=== PATIENT | male | born 1980 | race Caucasian/White ===

== ENCOUNTER 2016-03-24 05:29 | Inpatient (IN) | payer OTHER ==
[~2016-03-24] VITALS: Ht 180.3 cm; Wt 97.2 kg
[2016-03-24 06:31] LABS: BASO # 0.1 K/mm3 (0.0-0.2); BASO % 2.2 % (0.0-1.0); EOS # 0.3 K/mm3 (0.0-0.50); EOS % 4.9 % (0.0-3.0); LARGE UNSTAINED CELL # 0.1 K/mm3 (0.0-0.4); LYMPH # 2.4 K/mm3 (1.5-4.5); MEAN CORPUSCULAR HEMOGLOBIN 29.5 pg (27.0-33.0); MEAN CORPUSCULAR HGB CONC 34.6 g/dl (32.0-36.5); MEAN CORPUSCULAR VOLUME 85.2 fl (80.0-96.0); MONO # 0.3 K/mm3 (0.0-0.8); MONO % 4.7 % (0.0-5.0); NEUTROPHILS # 3.3 K/mm3 (1.8-7.7); NEUTROPHILS % 51.1 % (36.0-66.0); PLATELET COUNT, AUTOMATED 185 k/mm3 (150-450); WHITE BLOOD COUNT 6.5 K/mm3 (4.0-10.0)
[2016-03-24 06:37] LABS: ANION GAP 10 MEQ/L (8-16); BLOOD UREA NITROGEN 17 MG/DL (7-18); CALCIUM LEVEL 9.9 MG/DL (8.5-10.1); CARBON DIOXIDE LEVEL 26 MEQ/L (21-32); CHLORIDE LEVEL 107 MEQ/L (98-107); CREATININE FOR GFR 1.28 MG/DL (0.70-1.30); GLOMERULAR FILTRATION RATE > 60.0 (>60); GLUCOSE, FASTING 102 MG/DL (70-105); POTASSIUM SERUM 3.4 MEQ/L (3.5-5.1); SODIUM LEVEL 143 MEQ/L (136-145)
[2016-03-24] MEDS ORDERED: METOPROLOL 5 MG/5 ML VIAL As Ordered ONE (06:56)
[2016-03-24] MEDS ORDERED: POTASSIUM CHLORIDE 10 MEQ SR TABLET As Ordered ONE (06:57)
[2016-03-24] MEDS ORDERED: ASPIRIN 81 MG CHEW TABLET As Ordered ONE (06:57)
[2016-03-24] MEDS ORDERED: ISOVUE-370 76% 100ML VIAL (Q9967) As Ordered ONE (07:00)
[2016-03-24 07:05] LABS: INR 0.98
--- NOTE | 2016-03-24 07:50 | REPUSA ---
CLINICAL HISTORY: Dyspnea, exclude PE. TECHNIQUE: Multiple incremental axial, coronal and oblique images are obtained from the thoracic inle t to the upper abdomen. Intravenous contrast material was administered as per pulmonary embolism prot ocol. COMMENTS: There is excellent opacification of pulmonary arterial system without evidence for pulmonary embolism . Aorta is of normal caliber without evidence for dissection or aneurysm. There is no evidence of pleural or parenchymal mass. There are no pleural effusions. There is no evid ence of hilar or mediastinal lymphadenopathy. The heart and great vessels are within normal limits. Images of the upper abdomen demonstrate no evidence of adrenal mass. The bony structures are free of lytic or blastic lesions. Multilevel degenerative changes are seen in volving the visualized thoracolumbar spine. Scattered calcifications are seen involving the aorta and major branches compatible with atherosclero sis. IMPRESSION: No evidence for pulmonary embolism. Thank you for your kind referral of this patient.
--- NOTE | 2016-03-24 08:07 | REP ---
Portable chest: Single view. History: Chest pain. Comparison study: No comparison study. Findings: EKG monitoring electrodes overlie the chest. Lungs are well inflated and clear. Heart size is normal. Pulmonary vasculature is not increased. No bony abnormality is seen to Impression: No active disease. Signed by Abhi Mitchell MD 03/24/2016 07:59 A
[2016-03-24] MEDS ORDERED: METOPROLOL TART 25 MG TABLET As Ordered ONE ×2 (08:17→12:25)
[2016-03-24] MEDS ORDERED: ENOXAPARIN 100MG/1ML SYRINGE (J1650) As Ordered ONE (09:18)
[2016-03-24] MEDS ORDERED: VITMTA PO (09:26)
[2016-03-24 10:33] LABS: INR 1.06
[2016-03-24 10:47] LABS: FREE T4 0.98 NG/DL (0.76-1.46)
[2016-03-24 10:48] LABS: MAGNESIUM LEVEL 2.3 MG/DL (1.8-2.4)
--- NOTE | 2016-03-24 11:51 | HPEPDOC ---
General Date of Admission Mar 24, 2016 at 09:32 Chief Complaint The patient is a 35-year-old male Presented to the ER with complaints of chest tightness for 3 weeks and sudden onset of palpitations this morning that woke him from sleep. History of Present Illness Patient is a 35 year old male with a PMHx of Insomnia and ARTURO w/o CPAP who presented to the ER with complaints of palpitations since this morning. 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 He notes that he was in [place] 3 weeks ago and flew almost on a daily basis (Last flight was Feb 22). He noted that 3 weeks ago he was experiencing sub-sternal / left sided chest tightness. He noted that the pain occurred on and off for minutes to hours. He rated the pain as a 4/10 currently, but at the maximum it was 7-8/10. He noted that the pain does radiate to his back. He denied any alleviating or aggravating factors. He denied any associated nausea, sweating, shortness of breath or loss of consciousness. This morning he had a sudden onset of palpitations at 630AM that woke him from sleep. He notes that his baseline heart rate is in the 40-50s range. When he presented to the ER he had an EKG which revealed atrial fibrillation with a HR in the 120s. He was given metoprolol IV (5mg x2) and then given metoprolol tartrate 25mg PO. Currently his HR is in the 90s. Patient also had a CTA of his chest completed which was negative for pulmonary embolism, it also noted scattered calcifications involving the aorta and major branches compatible with atherosclerosis. Hospitalist team was called for admission. Patient denies any vomiting, cough, shortness of breath, fever / chills, abdominal pain, constipation, diarrhea or urinary symptoms. He denies any heat / cold intolerance, denies any weight change and denies any changes in his appetite. Home Medications Scheduled Multivitamins *[facility] [place] (The[facility] *[facility]*) 1 Tab Tab 1 TAB PO DAILY (Reported) Allergies Coded Allergies: Amoxicillin (Unverified Allergy, Unknown, RASH AND SWELLING , 03/24/16) Past Medical History Medical History Insomnia Obstructive sleep apnea no CPAP use Surgical History [place] teeth removal 2009 Adenoidectomy Family History Family History - Mother with Lymphoma - Father with Hypertension and diabetes - No history of thyroid related disease Social History Social History - Denies the use of alcohol, tobacco or illicit drugs - Recent travel to [place] - Lives with and two children - 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 [employer] Review of Symptoms Other systems Constitutional: Denies weight loss, change in appetite, or recent trauma Eyes: No visual changes or eye pain Ears, Nose, Throat: Denies nose bleeds, or difficulty swallowing Cardiovascular: Positive chest pain and palpitations, No sweating, or orthopnea Respiratory: Denies cough, wheezing, or shortness of breath GI: Luis Fernando nausea, vomiting, abdominal pain, diarrhea or constipation : Denies pain with urination or frequency Musculoskeletal: Denies joint pain or swelling Neuro / Psych: Denies muscle weakness or sensory loss Skin: No skin rashes noted All other review of systems negative; otherwise stated in history of present illness Screening: - Colonoscopy never done Vital Signs - Vitals: BP 166/75, HR 88, RR 20, Sat 98%RA, Temp 96.7F - General: Lying in bed, No acute distress, Speaking in full sentences, AAOx3 - HEENT: NC, AT, PERRLA, EOMI - CVS: Irregularly irregular, +S1S2, - Murmurs / rubs / gallops - Lungs: Fair air entry bilaterally, Clear to auscultation, No wheezing / rales / rhonchi - Abdomen: Soft, Non-distended, Non-tender, + Bowel sounds x 4 - Extremities: + PPx4, No lower extremity edema, No calf tenderness - Neuro: No focal motor or sensory deficit - Skin: No visible rashes Laboratory Data Labs 24H Laboratory Tests 2 03/24/16 05:52: Anion Gap 10, White Blood Count 6.5, Red Blood Count 5.63, Hemoglobin 16.6, Hematocrit 47.9, Mean Corpuscular Volume 85.2, Mean Corpuscular Hemoglobin 29.5 , Mean Corpuscular Hemoglobin Concent 34.6, Red Cell Distribution Width 13.0, Platelet Count 185, Neutrophils (%) (Auto) 51.1, Lymphocytes (%) (Auto) 35.0, Monocytes (%) (Auto) 4.7, Eosinophils (%) (Auto) 4.9H, Basophils (%) (Auto) 2.2H , Neutrophils # (Auto) 3.3, Lymphocytes # (Auto) 2.4, Monocytes # (Auto) 0.3, Eosinophils # (Auto) 0.3, Basophils # (Auto) 0.1, Blood Urea Nitrogen 17, Creatinine 1.28, Sodium Level 143, Potassium Level 3.4L, Chloride Level 107, Carbon Dioxide Level 26, Calcium Level 9.9, Total Creatine Kinase 197, Creatine Kinase MB 1.0, Creatine Kinase MB Relative Index 0.50, Glomerular Filtration Rate > 60.0, Large Unclassified Cells # 0.1, Large Unclassified Cells % 2.0, Magnesium Level 2.0, Troponin I < 0.02 03/24/16 06:16: Activated Partial Thromboplast Time 28.5, D-Dimer, Quantitative < 270.0, Prothromb Time International Ratio 0.98, Prothrombin Time 13.1 03/24/16 10:15: Total Creatine Kinase 163, Creatine Kinase MB 1.0, Creatine Kinase MB Relative Index 0.61, Magnesium Level 2.3, Troponin I < 0.02, Prothromb Time International Ratio 1.06, Prothrombin Time 13.9, C-Reactive Protein, Quantitative < 0.30, Erythrocyte Sedimentation Rate 2, Free Thyroxine 0.98, Thyroid Stimulating Hormone (TSH) 1.670 CBC/BMP Laboratory Tests 03/24/16 05:52 Calcium Level 9.9, Total Creatine Kinase 197, Red Blood Count 5.63, Mean Corpuscular Volume 85.2, Mean Corpuscular Hemoglobin 29.5, Mean Corpuscular Hemoglobin Concent 34.6, Red Cell Distribution Width 13.0, Neutrophils (%) (Auto ) 51.1, Lymphocytes (%) (Auto) 35.0, Monocytes (%) (Auto) 4.7, Eosinophils (%) ( Auto) 4.9 H, Basophils (%) (Auto) 2.2 H, Neutrophils # (Auto) 3.3, Lymphocytes # (Auto) 2.4, Monocytes # (Auto) 0.3, Eosinophils # (Auto) 0.3, Basophils # ( Auto) 0.1 Plan / VTE VTE Prophylaxis Ordered?: Yes Plan Plan New onset atrial fibrillation - possibly 2/2 thyroid disease, possibly 2/2 pericarditis - CHADSVASC 2 score of 0 - Presented with palpitations and chest tightness - s/p Metoprolol 5mg IV x2 and Metoprolol tartrate 25mg PO - Physical with irregularly irregular rhythm; remains hemodynamically stable - EKG reveals atrial fibrillation with HR of 109 - First set troponin negative, D-dimer Negative - CTA chest no evidence of PE, atherosclerosis of aorta and major branches - Will check thyroid function, will check ESR / CRP, will check 2D-ECHO - Will c/w Metoprolol tartrate 25mg PO Q6H and Lovenox (therapeutic) at 100mg BID - Case discussed with Dr. Dave (Cardiology) who will be on consult - appreciate his input Insomnia - does not take any medications ARTURO - Reports that he does not use a CPAP machine Hypokalemia - mild at 3.4 - Has been repelted in the Er DVT prophylaxis - on full anticoagulation with lovenox LUCY AVILES MD Mar 24, 2016 11:51
--- NOTE | 2016-03-24 14:01 | EDDOCDS ---
Physician Documentation [facility] Name: Eliecer Issa Age: 35 yrs Sex: Male : 1980 Arrival Date: 03/24/2016 Time: 05:29 Bed Admit Hold Private MD: Disposition: 03/24 09:05 Critical Care:. ml Disposition: 03/24/16 09:05 Hospitalization ordered by Beckie Fernandez for Inpatient Admission. Preliminary diagnosis are Chest pain, unspecified, Unspecified atrial fibrillation. - Bed requested for PCU. - Status is Inpatient Admission. ar3 - Condition is Stable. - Problem is new. - Symptoms are unchanged. Historical: - Allergies: PENICILLINS; - Home Meds: 1. none - PMHx: Sleep Apnea w/o CPAP; - PSHx: wisdom tetth extraction; - Social history: Smoking status: Patient states was never smoker of tobacco. No barriers to communication noted. - Family history: Not pertinent. - : The pt / caregiver states he / she is not on anticoagulants. Home medication list is obtained from the patient. - Exposure Risk Screening:: None identified. Vital Signs: 05:43 BP 161 / 82; Pulse 124; Resp 16; Pulse Ox 100% on R/A; Weight 97.52 kg / 214.99 lbs; cz Height 5 ft. 11 in. (180.34 cm); 07:26 BP 178 / 98; Pulse 112; Resp 20; Temp 96.7(O); Pulse Ox 95% on R/A; Pain 0/10; jc4 07:34 BP 165 / 89 (auto/); jc4 07:34 Pulse 94 MON; Pulse Ox 98% ; jc4 07:36 BP 165 / 89; Pulse 91; Resp 20; Pulse Ox 98% on R/A; jc4 07:44 BP 172 / 114 (auto/); jc4 07:44 BP 172 / 114; Pulse 104; Resp 20; Pulse Ox 98% on R/A; jc4 07:45 Pulse 96 MON; Pulse Ox 98% ; jc4 07:55 BP 169 / 85 (auto/); jc4 07:55 Pulse 84 MON; Pulse Ox 98% ; jc4 08:09 Pulse 88 MON; Pulse Ox 96% ; jc4 08:10 BP 166 / 75 (auto/); jc4 09:09 Pulse 88 MON; Pulse Ox 97% ; jc4 09:10 BP 147 / 80 (auto/); jc4 09:33 BP 120 / 85; Pulse 82; Resp 18; Temp 98.5(TE); Pulse Ox 97% on R/A; Pain 3/10; dsf 09:33 BP 120 / 85 (auto/); dsf 09:34 Pulse 84 MON; Pulse Ox 96% ; dsf 09:40 BP 127 / 95 (auto/); dsf 09:41 Pulse 88 MON; Pulse Ox 96% ; dsf 09:55 BP 129 / 78 (auto/); dsf 09:55 Pulse 84 MON; Pulse Ox 94% ; dsf 10:10 BP 129 / 85 (auto/); dsf 10:10 Pulse 84 MON; Pulse Ox 95% ; dsf 10:25 BP 126 / 75 (auto/); dsf 10:25 Pulse 86 MON; Pulse Ox 96% ; dsf 10:40 BP 133 / 63 (auto/); dsf 10:40 Pulse 66 MON; Pulse Ox 94% ; dsf 10:40 BP 112 / 81 (auto/); dsf 10:40 Pulse 96 MON; Pulse Ox 96% ; dsf 10:55 BP 144 / 67 (auto/); dsf 10:55 Pulse 66 MON; Pulse Ox 95% ; dsf 11:10 BP 115 / 62 (auto/); dsf 11:10 Pulse 66 MON; Pulse Ox 96% ; dsf 11:25 BP 125 / 60 (auto/); dsf 11:25 Pulse 64 MON; Pulse Ox 94% ; dsf 11:27 BP 129 / 87; Pulse 94; Resp 20; Temp 98.5(TE); Pulse Ox 96% on R/A; Pain 3/10; dsf 11:27 BP 129 / 87 (auto/); dsf 11:28 Pulse 88 MON; Pulse Ox 97% ; dsf 13:41 BP 122 / 79 (auto/); dsf 13:41 Pulse 86 MON; Resp 20; Temp 98.0(TE); Pulse Ox 95% on R/A; Pain 3/10; dsf 05:43 Body Mass Index 29.99 (97.52 kg, 180.34 cm) cz MDM: 05:38 ECG WITH READING ER PHYS+CARDIAG ordered. EDMS 06:05 Front End Software Developer/Pulse Ox/q 30 min VS ordered. mm11 06:05 IV Saline Lock ordered. mm11 06:05 Rhythm Strip to chart ordered. mm11 06:05 Undress patient appropriately for examination ordered. mm11 06:06 Basic Metabolic Profile Ordered. EDMS 06:06 CBC with Diff Ordered. EDMS 06:06 Cardiac Injury Profile Ordered. EDMS 06:06 D-Dimer Quant Ordered. EDMS 06:06 Troponin Ordered. EDMS 06:06 Magnesium Level Ordered. EDMS 06:52 Basic Metabolic Profile Reviewed. ml 06:52 CBC with Diff Reviewed. ml 06:52 Cardiac Injury Profile Reviewed. ml 06:52 Troponin Reviewed. ml 06:52 Magnesium Level Reviewed. ml 06:53 NS 0.9% 1000 ml IV at 100 mL/hr continuous ordered. ml 06:53 Oral Temp ordered. ml 06:53 Potassium Chloride Extended Release Tablet 40 mEq PO once ordered. ml 06:53 Metoprolol 5 mg IVP every 5 minutes; Hold for SBP < 100 or HR < 60. x3 ordered. ml 06:55 Aspirin Chewable Tablet 324 mg PO once ordered. ml 06:55 Chest, 1 View Ordered. EDMS 06:56 CT Chest Angio R/O PE Ordered. EDMS 06:58 PT & APTT Ordered. EDMS 07:31 Financial registration complete. lg 07:44 [facility] Payment Agreement was scanned into [employer] and attached to record. lg 08:01 Metoprolol (Tartrate) 25 mg PO once ordered. ml 08:47 D-Dimer Quant Reviewed. ml 08:47 PT & APTT Reviewed. ml 08:47 Chest, 1 View Reviewed. ml 08:47 CT Chest Angio R/O PE Reviewed. ml 08:49 Enoxaparin (1mg/kg) 100 mg Sub-Q once; Ensure no Heparin in past 6hrs. Ensure any ml baseline labs are drawn. ordered. 08:50 BED REQUEST+ADM ordered. EDMS 09:07 ECHOCARDIOGRAM,DOPPLER/COLOR FLOW+CARDIAG ordered. EDMS 09:38 Admission / Observation Status ordered. EDMS 09:38 REGULAR DIET ordered. EDMS 09:39 THYROID STIMULATING HORMONE Ordered. EDMS 09:39 MAGNESIUM LEVEL Ordered. EDMS 09:39 CARDIAC MARKER PANEL Ordered. EDMS 09:39 CARDIAC MARKER PANEL Ordered. EDMS 09:39 TROPONIN Ordered. EDMS 09:39 TROPONIN Ordered. EDMS 09:39 PROTHROMBIN TIME PROFILE\E\INR Ordered. EDMS 09:39 ERYTHROCYTE SEDIMENTATION RATE Ordered. EDMS 09:39 C REACTIVE PROTEIN QUANTITATIV Ordered. EDMS 09:39 FREE T4 Ordered. EDMS 09:39 TOTAL T3 Ordered. EDMS 10:40 PROTHROMBIN TIME PROFILE\E\INR Reviewed. 12:01 T-Sheet-- Draft Copy was scanned into [employer] and attached to record. [facility] 13:50 ELECTROCARDIOGRAM ADULT ordered. EDMS Administered Medications: 07:29 Drug: Metoprolol 5 mg [metoprolol 5 mg/5 mL intravenous solution (5 mL)] Route: IVP; jc4 Site: right antecubital; 07:36 Follow up: BP 165 / 89; Pulse 91 bpm; Resp 20 bpm; Pulse Ox 98% RA jc4 07:33 Drug: Potassium Chloride 40 mEq [potassium chloride ER 10 mEq tablet,extended release jc4 (4 tabs)] {Note: Medication administered by Zulema Rodriguez RN.} Route: PO; 07:33 Drug: Aspirin 324 mg [aspirin 81 mg chewable tablet (4 tabs)] {Note: Medication jc4 administered by Zulema Rodriguez RN.} Route: PO; 07:37 Drug: Metoprolol 5 mg [metoprolol 5 mg/5 mL intravenous solution (5 mL)] Route: IVP; jc4 Site: right antecubital; 07:44 Follow up: BP 172 / 114; Pulse 104 bpm; Resp 20 bpm; Pulse Ox 98% RA jc4 08:27 Drug: Metoprolol 25 mg [metoprolol tartrate 25 mg tablet (1 tabs)] Route: PO; jc4 08:28 Drug: NS 0.9% 1000 ml [sodium chloride 0.9 % intravenous solution] Route: IV; Rate: 100 jc4 mL/hr; Site: right antecubital; 09:21 Drug: Enoxaparin (1mg/kg) 100 mg [enoxaparin 100 mg/mL subcutaneous syringe (1 mL)] dsf {Co-Signature: richard (Sandra Alvarenga RN).} {Note: right love handle area .} Route: Sub-Q; Site: right upper abdomen; Critical Care Time: 09:05 Critical care time: Bedside Care: 90 minutes, Consultation: 10 minutes. Total time: 100 ml minutes Signatures: Dispatcher [employer] EDMS Fiorella Duarte MD MD ml Caroline Rodriguez, RN RN [id number] Carlos López RN RN cz John Fisher, Juan Reg lg Terence James, DO mm11 Zackary, Irene, VAULT PERSON VAULT PERSON ar3 Hoffert, Josefina Mcadams RN jc4 Татьяна Weldon RN dsf Sandra Alvarenga RN kpj The chart was reviewed and I authenticate all verbal orders and agree with the evaluation and treatment provided.Corrections: (The following items were deleted from the chart) 58 06:54 PROTHROMBIN TIME PROFILE\E\INR+LAB ordered. EDMS EDMS 58 06:54 PARTIAL THROMBOPLASTIN TIME+LAB ordered. EDMS EDMS Attachments: 07:44 [facility] Payment Agreement lg 12:01 T-Sheet-- Draft Copy [facility] MTDD
--- NOTE | 2016-03-24 14:01 | EDDOCDS ---
Nurse's Notes [facility] Name: Eliecer Issa Age: 35 yrs Sex: Male : 1980 Arrival Date: 03/24/2016 Time: 05:29 Bed Admit Hold Private MD: Diagnosis: Chest pain, unspecified;Unspecified atrial fibrillation Presentation: 03/24 05:39 Presenting complaint: Patient states: he woke up this morning with palpatations pt cz denies any use of supplements denies caffeine increaed use. pt chest pain for 3 weeks rates pain at 6/10 no change with deep breathing. Aspirin was not taken prior to arrival. Adult Sepsis Screening: The patient does not have new or worsening altered mentation. Patient's respiratory rate is less than 22. Systolic blood pressure is greater than 100. Patient has a qSOFA score of 0- Negative Sepsis Screen. Suicide/Homicide risk assessment- the patient denies having any suicidal and/or homicidal ideations and does not present with any other emotional, behavioral or mental health complaints. 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 Transition of care: patient was not received from another setting of care. 05:39 Acuity: FARIDA Level 2 cz 05:39 Method Of Arrival: Walkin/Carried/Asstd cz Triage Assessment: 05:43 General: Appears uncomfortable. Pain: Location: chest Pain currently is 6 out of 10 on cz a pain scale. HIV screening NA for this visit Offered previously. Historical: - Allergies: PENICILLINS; - Home Meds: 1. none - PMHx: Sleep Apnea w/o CPAP; - PSHx: wisdom tetth extraction; - Social history: Smoking status: Patient states was never smoker of tobacco. No barriers to communication noted. - Family history: Not pertinent. - : The pt / caregiver states he / she is not on anticoagulants. Home medication list is obtained from the patient. - Exposure Risk Screening:: None identified. Screenin:49 Screening information is obtained from the patient. Fall risk: No risks identified. kmg1 Assistance ADL's: requires no assistance with activities of daily living. Abuse/DV Screen: The patient / caregiver reports he/she is: not in a situation that causes fear, pain or injury. Nutritional screening: No deficits noted. Advance Directives: There is no active DNR order. home support is adequate. Assessment: 05:49 General: Appears in no apparent distress, comfortable, Behavior is appropriate for age, kmg1 cooperative, pleasant. 05:49 Pain: Location: mid-sternal area Pain currently is 6 out of 10 on a pain scale. Quality kmg1 of pain is described as tightness Pain began 3 weeks ago. Neurological: Level of Consciousness is awake, alert. EENT: No deficits noted. Cardiovascular: Capillary refill < 3 seconds Clubbing of nail beds is absent Heart tones S1 S2 present rhythm irregular. Rhythm is sinus tachycardia No ectopy. Cardiovascular: Chest pain is described as Pain is 6 out of 10 on a pain scale. is located in substernal area Chest pain began 3 weeks ago Reports palpitations, since this am. Respiratory: Airway is patent Respiratory effort is even, unlabored, Respiratory pattern is regular, symmetrical. GI: No deficits noted. : No deficits noted. Derm: Skin is pink, warm & dry. Musculoskeletal: No deficits noted. 07:39 General: Appears in no apparent distress, comfortable, Behavior is cooperative, jc4 pleasant. Pain: Pain currently is 4 out of 10 on a pain scale. Neurological: Level of Consciousness is awake, alert, Oriented to person, place, time. Cardiovascular: Capillary refill < 3 seconds Chest pain is described as Pain is 4 out of 10 on a pain scale. quality is tightness is located in substernal area. Respiratory: Airway is patent Respiratory effort is even, unlabored, Respiratory pattern is regular, symmetrical. Derm: Skin is pink, warm & dry. 08:15 General: Per Dr. Brandt, hold 3rd dose of Lopressor. jc4 08:25 General: Appears in no apparent distress, comfortable. Neurological: Level of jc4 Consciousness is awake, alert, Oriented to person, place, time. Cardiovascular: Capillary refill < 3 seconds. Derm: Skin is pink, warm & dry. 09:22 General: Dr. Fernandez in room examining patient . dsf 09:28 General: Appears in no apparent distress, comfortable, Behavior is appropriate for age, dsf cooperative. Pain: Location: mid-sternal area Pain currently is 3 out of 10 on a pain scale. Pain does not radiate. Quality of pain is described as tightness. Neurological: Level of Consciousness is awake, alert. Cardiovascular: Capillary refill < 3 seconds Heart tones S1 S2 present Rhythm is atrial fibrillation Reports palpitations. Respiratory: Airway is patent Respiratory effort is even, unlabored, Respiratory pattern is regular, symmetrical, Breath sounds are clear bilaterally. GI: Abdomen is non- distended Bowel sounds present X 4 quads. Abd is soft and non tender X 4 quads. Derm: Skin is pink, warm & dry. 10:28 Adult Sepsis Screening: The patient does not have new or worsening altered mentation. dsf Patient's respiratory rate is less than 22. Systolic blood pressure is greater than 100. Patient has a qSOFA score of 0- Negative Sepsis Screen. General: Appears in no apparent distress, Behavior is appropriate for age, cooperative. Neurological: Level of Consciousness is awake, alert. Cardiovascular: Capillary refill < 3 seconds Rhythm is atrial fibrillation. Respiratory: Airway is patent Respiratory effort is even, unlabored, Respiratory pattern is regular, symmetrical. Derm: Skin is pink, warm & dry. 11:28 General: Appears in no apparent distress, comfortable, family at bedside . Behavior is dsf appropriate for age, cooperative. Neurological: Level of Consciousness is awake, alert, Oriented to person, place, time. Cardiovascular: Capillary refill < 3 seconds Rhythm is atrial fibrillation. Respiratory: Airway is patent Respiratory effort is even, unlabored, Respiratory pattern is regular, symmetrical. Derm: Skin is pink, warm & dry. 12:28 Adult Sepsis Screening: The patient does not have new or worsening altered mentation. dsf Patient's respiratory rate is less than 22. Systolic blood pressure is greater than 100. Patient has a qSOFA score of 0- Negative Sepsis Screen. General: Appears in no apparent distress, comfortable, Behavior is appropriate for age, cooperative. Pain: Location: mid-sternal area Pain currently is 3 out of 10 on a pain scale. Quality of pain is described as tightness. Neurological: Level of Consciousness is awake, alert. Cardiovascular: Capillary refill < 3 seconds Rhythm is atrial fibrillation. Respiratory: Airway is patent Respiratory effort is even, unlabored, Respiratory pattern is regular, symmetrical. Derm: Skin is pink, warm & dry. 13:44 Adult Sepsis Screening: The patient does not have new or worsening altered mentation. dsf Patient's respiratory rate is less than 22. Systolic blood pressure is greater than 100. Patient has a qSOFA score of 0- Negative Sepsis Screen. General: Appears in no apparent distress, Behavior is appropriate for age, cooperative. Pain: Location: mid-sternal area Pain currently is 3 out of 10 on a pain scale. Pain does not radiate. Quality of pain is described as tightness. Neurological: Level of Consciousness is awake, alert, Oriented to person, place, time. Cardiovascular: Capillary refill < 3 seconds Heart tones S1 S2 present Rhythm is atrial fibrillation. Respiratory: Airway is patent Respiratory effort is even, unlabored, Respiratory pattern is regular, symmetrical, Breath sounds are clear bilaterally. GI: Abdomen is non- distended Bowel sounds present X 4 quads. Abd is soft and non tender X 4 quads. Derm: Skin is pink, warm & dry. Vital Signs: 05:43 BP 161 / 82; Pulse 124; Resp 16; Pulse Ox 100% on R/A; Weight 97.52 kg; Height 5 ft. 11 cz in. (180.34 cm); 07:26 BP 178 / 98; Pulse 112; Resp 20; Temp 96.7(O); Pulse Ox 95% on R/A; Pain 0/10; jc4 07:34 BP 165 / 89 (auto/); jc4 07:34 Pulse 94 MON; Pulse Ox 98% ; jc4 07:36 BP 165 / 89; Pulse 91; Resp 20; Pulse Ox 98% on R/A; jc4 07:44 BP 172 / 114 (auto/); jc4 07:44 BP 172 / 114; Pulse 104; Resp 20; Pulse Ox 98% on R/A; jc4 07:45 Pulse 96 MON; Pulse Ox 98% ; jc4 07:55 BP 169 / 85 (auto/); jc4 07:55 Pulse 84 MON; Pulse Ox 98% ; jc4 08:09 Pulse 88 MON; Pulse Ox 96% ; jc4 08:10 BP 166 / 75 (auto/); jc4 09:09 Pulse 88 MON; Pulse Ox 97% ; jc4 09:10 BP 147 / 80 (auto/); jc4 09:33 BP 120 / 85; Pulse 82; Resp 18; Temp 98.5(TE); Pulse Ox 97% on R/A; Pain 3/10; dsf 09:33 BP 120 / 85 (auto/); dsf 09:34 Pulse 84 MON; Pulse Ox 96% ; dsf 09:40 BP 127 / 95 (auto/); dsf 09:41 Pulse 88 MON; Pulse Ox 96% ; dsf 09:55 BP 129 / 78 (auto/); dsf 09:55 Pulse 84 MON; Pulse Ox 94% ; dsf 10:10 BP 129 / 85 (auto/); dsf 10:10 Pulse 84 MON; Pulse Ox 95% ; dsf 10:25 BP 126 / 75 (auto/); dsf 10:25 Pulse 86 MON; Pulse Ox 96% ; dsf 10:40 BP 133 / 63 (auto/); dsf 10:40 Pulse 66 MON; Pulse Ox 94% ; dsf 10:40 BP 112 / 81 (auto/); dsf 10:40 Pulse 96 MON; Pulse Ox 96% ; dsf 10:55 BP 144 / 67 (auto/); dsf 10:55 Pulse 66 MON; Pulse Ox 95% ; dsf 11:10 BP 115 / 62 (auto/); dsf 11:10 Pulse 66 MON; Pulse Ox 96% ; dsf 11:25 BP 125 / 60 (auto/); dsf 11:25 Pulse 64 MON; Pulse Ox 94% ; dsf 11:27 BP 129 / 87; Pulse 94; Resp 20; Temp 98.5(TE); Pulse Ox 96% on R/A; Pain 3/10; dsf 11:27 BP 129 / 87 (auto/); dsf 11:28 Pulse 88 MON; Pulse Ox 97% ; dsf 13:41 BP 122 / 79 (auto/); dsf 13:41 Pulse 86 MON; Resp 20; Temp 98.0(TE); Pulse Ox 95% on R/A; Pain 3/10; dsf 05:43 Body Mass Index 29.99 (97.52 kg, 180.34 cm) cz Vitals: 05:43 Log In Time: March 24, 2016 at 03:32. cz 05:49 Refer to monitor trend for complete vital signs trends. kmg1 ED Course: 05:31 Patient visited by Gege Ramirez, Reg. hs2 05:31 Patient moved to Waiting hs2 05:37 Caroline Rodriguez, RN is Primary Nurse. cz 05:37 Patient moved to 7 cz 05:42 Triage Initiated cz 05:48 Inserted saline lock: 18 gauge in left antecubital area. kmg1 05:49 The patient / caregiver is instructed regarding the plan of care and ED course. Cardiac kmg1 monitor on. Pulse ox on. NIBP on. 05:57 Patient visited by Edilia Luis PCA. ls3 05:57 Patient visited by Caroline Rodriguez, NELLIE. kmg1 05:57 EKG done. (by ED staff). Reviewed by Terence James DO. ls3 06:07 Magnesium Level Sent. kmg1 06:07 Basic Metabolic Profile Sent. kmg1 06:07 CBC with Diff Sent. kmg1 06:07 Cardiac Injury Profile Sent. kmg1 06:07 Troponin Sent. kmg1 06:16 D-Dimer Quant Sent. kmg1 06:42 Fiorella Daurte MD is Attending Physician. ml 06:42 Patient visited by Fiorella Duarte MD. ml 07:29 Primary Nurse role handed off by Caroline Rodriguez, RN js13 07:29 Inserted saline lock: 20 gauge in right antecubital area. jc4 07:40 Patient visited by Josefina Tierney RN. jc4 07:42 Patient name changed from Eliecer\S\Jr\S\Luis Manuel\S\ to Eliecer\S\Jus\S\Luis Manuel. EDMS 07:44 [facility] Payment Agreement was scanned into [employer] and attached to record. lg 08:09 CT Chest Angio R/O PE Returned. EDMS 08:09 Chest, 1 View Returned. EDMS 08:25 Patient visited by Josefina Tierney, NELLIE. jc4 09:03 Patient visited by Josefina Tierney, NELLIE. jc4 09:04 Beckie Fernandez is Hospitalizing Provider. ml 09:29 Patient visited by Татьяна Weldon RN. dsf 09:57 Patient moved to Admit Hold kpj 10:30 Patient visited by Татьяна Weldon,NELLIE. dsf 11:42 Patient visited by Татьяна Weldon RN. dsf 11:43 Patient visited by Татьяна Weldon RN. dsf 12:01 T-Sheet-- Draft Copy was scanned into [employer] and attached to record. seh 12:45 Patient visited by Татьяна Weldon RN. dsf 13:45 No procedures done that require assistance. dsf Administered Medications: 07:29 Drug: Metoprolol 5 mg [metoprolol 5 mg/5 mL intravenous solution (5 mL)] Route: IVP; jc4 Site: right antecubital; 07:36 Follow up: BP 165 / 89; Pulse 91 bpm; Resp 20 bpm; Pulse Ox 98% RA jc4 07:33 Drug: Potassium Chloride 40 mEq [potassium chloride ER 10 mEq tablet,extended release jc4 (4 tabs)] {Note: Medication administered by Zulema Rodriguez RN.} Route: PO; 07:33 Drug: Aspirin 324 mg [aspirin 81 mg chewable tablet (4 tabs)] {Note: Medication jc4 administered by Zulema Rodriguez RN.} Route: PO; 07:37 Drug: Metoprolol 5 mg [metoprolol 5 mg/5 mL intravenous solution (5 mL)] Route: IVP; jc4 Site: right antecubital; 07:44 Follow up: BP 172 / 114; Pulse 104 bpm; Resp 20 bpm; Pulse Ox 98% RA jc4 08:27 Drug: Metoprolol 25 mg [metoprolol tartrate 25 mg tablet (1 tabs)] Route: PO; jc4 08:28 Drug: NS 0.9% 1000 ml [sodium chloride 0.9 % intravenous solution] Route: IV; Rate: 100 jc4 mL/hr; Site: right antecubital; 09:21 Drug: Enoxaparin (1mg/kg) 100 mg [enoxaparin 100 mg/mL subcutaneous syringe (1 mL)] dsf {Co-Signature: richard (Sandra Alvarenga RN).} {Note: right love handle area .} Route: Sub-Q; Site: right upper abdomen; Output: 07:37 Urine: 350.00ml (Voided); Total: 350.00ml. jc4 11:33 Urine: 600.00ml (Voided); Total: 950.00ml. pml Order Results: Lab Order: Basic Metabolic Profile; SPEC'M 03/24/16 05:52 Test: GLUCOSE, FASTING; Value: 102; Range: 70-105; Units: MG/DL; Status: F Test: BLOOD UREA NITROGEN; Value: 17; Range: 7-18; Units: MG/DL; Status: F Test: CREATININE FOR GFR; Value: 1.28; Range: 0.70-1.30; Units: MG/DL; Status: F Test: GLOMERULAR FILTRATION RATE; Value: > 60.0; Range: >60; Status: F Test: SODIUM LEVEL; Value: 143; Range: 136-145; Units: MEQ/L; Status: F Test: POTASSIUM SERUM; Value: 3.4; Range: 3.5-5.1; Abnormal: Below low normal; Units: MEQ/L; Status: F Test: CHLORIDE LEVEL; Value: 107; Range: 98-107; Units: MEQ/L; Status: F Test: CARBON DIOXIDE LEVEL; Value: 26; Range: 21-32; Units: MEQ/L; Status: F Test: ANION GAP; Value: 10; Range: 8-16; Units: MEQ/L; Status: F Test: CALCIUM LEVEL; Value: 9.9; Range: 8.5-10.1; Units: MG/DL; Status: F Test Note: ; Units are mL/min/1.73 m2 Chronic Kidney Disease Staging per NKF: Stage I & II GFR >=60 Normal to Mildly Decreased Stage III GFR 30-59 Moderately Decreased Stage IV GFR 15-29 Severely Decreased Stage V GFR <15 Very Little GFR Left ESRD GFR <15 on TRANSFER PROFESSOR Lab Order: CBC with Diff; SPEC'M 03/24/16 05:52 Test: WHITE BLOOD COUNT; Value: 6.5; Range: 4.0-10.0; Units: K/mm3; Status: F Test: RED BLOOD COUNT; Value: 5.63; Range: 4.30-6.10; Units: M/mm3; Status: F Test: HEMOGLOBIN; Value: 16.6; Range: 14.0-18.0; Units: g/dl; Status: F Test: HEMATOCRIT; Value: 47.9; Range: 42.0-52.0; Units: %; Status: F Test: MEAN CORPUSCULAR VOLUME; Value: 85.2; Range: 80.0-96.0; Units: fl; Status: F Test: MEAN CORPUSCULAR HEMOGLOBIN; Value: 29.5; Range: 27.0-33.0; Units: pg; Status: F Test: MEAN CORPUSCULAR HGB CONC; Value: 34.6; Range: 32.0-36.5; Units: g/dl; Status: F Test: RED CELL DISTRIBUTION WIDTH; Value: 13.0; Range: 11.5-14.5; Units: %; Status: F Test: PLATELET COUNT, AUTOMATED; Value: 185; Range: 150-450; Units: k/mm3; Status: F Test: NEUTROPHILS %; Value: 51.1; Range: 36.0-66.0; Units: %; Status: F Test: LYMPH %; Value: 35.0; Range: 24.0-44.0; Units: %; Status: F Test: MONO %; Value: 4.7; Range: 0.0-5.0; Units: %; Status: F Test: EOS %; Value: 4.9; Range: 0.0-3.0; Abnormal: Above high normal; Units: %; Status: F Test: BASO %; Value: 2.2; Range: 0.0-1.0; Abnormal: Above high normal; Units: %; Status: F Test: LARGE UNSTAINED CELL %; Value: 2.0; Range: 0.0-4.0; Units: %; Status: F Test: NEUTROPHILS #; Value: 3.3; Range: 1.8-7.7; Units: K/mm3; Status: F Test: LYMPH #; Value: 2.4; Range: 1.5-4.5; Units: K/mm3; Status: F Test: MONO #; Value: 0.3; Range: 0.0-0.8; Units: K/mm3; Status: F Test: EOS #; Value: 0.3; Range: 0.0-0.50; Units: K/mm3; Status: F Test: BASO #; Value: 0.1; Range: 0.0-0.2; Units: K/mm3; Status: F Test: LARGE UNSTAINED CELL #; Value: 0.1; Range: 0.0-0.4; Units: K/mm3; Status: F Lab Order: Cardiac Injury Profile; SPEC'M 03/24/16 05:52 Test: CPK CREATINE PHOSPHOKINASE; Value: 197; Range: 39-308; Units: U/L; Status: F Test: CK-MB VALUE MASS; Value: 1.0; Range: 0.0-3.6; Units: NG/ML; Status: F Test: MB/CK RELATIVE INDEX; Value: 0.50; Range: < OR =4; Status: F Test Note: ; DIAGNOSIS CRITERIA MMB ng/ml Relative Index (RI) NON-AMI < or = 5 N/A BRANDT ZONE > 5 < or = 4 AMI > 5 > 4 Lab Order: D[facility]imer Quant; [facility] 06:16 Test: D-DIMER QUANT; Value: < 270.0; Range: <500; Units: ng/ml; Status: F Lab Order: Troponin; 03/24/16 05:52 Test: TROPONIN I; Value: < 0.02; Range: < 0.10; Units: NG/ML; Status: F Test Note: ; Troponin I Reference Interval for [employer] LOCI: 99th Percentile= 0.00-0.045 ng/ml Risk Stratification: <= 0.10 ng/ml Decreased Risk for Adverse Clinical Events. 0.10-1.50 ng/ml Increased Risk for Adverse Clinical Events. Evaluation of additional criterion and/or repeat testing in 2-6 hours is suggested to rule out myocardial damage. >= 1.50 ng/ml Indicative of Myocardial Injury. Lab Order: Magnesium Level; 03/24/16 05:52 Test: MAGNESIUM LEVEL; Value: 2.0; Range: 1.8-2.4; Units: MG/DL; Status: F Lab Order: PT & APTT; 03/24/16 06:16 Test: PROTHROMBIN TIME; Value: 13.1; Range: 12.3-14.5; Units: SECONDS; Status: F Test: INR; Value: 0.98; Status: F Test: PARTIAL THROMBOPLASTIN TIME; Value: 28.5; Range: 26.6-37.1; Units: SECONDS; Status: F Test Note: ; THERAPUTIC HUMAN INR VALUES INDICATIONS NORMAL RANGES PROPHYLAXIS/TREATMENT OF: VENOUS THROMBOSIS 2.0-3.0 PULMONARY EMBOLISM 2.0-3.0 PREVENTION OF SYSTEMIC EMBOLISM FROM: TISSUE HEART VALVES 2.0-3.0 ACUTE MYOCARDIAL INFARCTION 2.0-3.0 VALVULAR HEART DISEASE 2.0-3.0 ATRIAL FIBRILLATION 2.0-3.0 MECHANICAL VALVES(HIGH RISK) 2.5-3.5 RECURRENT MYOCARDIAL INFARCTION 2.5-3.5 Lab Order: THYROID STIMULATING HORMONE; 03/24/16 10:15 Test: THYROID STIMULATING HORMONE; Value: 1.670; Range: 0.358-3.740; Units: uIU/ML; Status: F Lab Order: MAGNESIUM LEVEL; 03/24/16 10:15 Test: MAGNESIUM LEVEL; Value: 2.3; Range: 1.8-2.4; Units: MG/DL; Status: F Lab Order: CARDIAC MARKER PANEL; 03/24/16 10:15 Test: CPK CREATINE PHOSPHOKINASE; Value: 163; Range: 39-308; Units: U/L; Status: F Test: CK-MB VALUE MASS; Value: 1.0; Range: 0.0-3.6; Units: NG/ML; Status: F Test: MB/CK RELATIVE INDEX; Value: 0.61; Range: < OR =4; Status: F Test: TROPONIN I; Value: < 0.02; Range: < 0.10; Units: NG/ML; Status: F Test Note: ; DIAGNOSIS CRITERIA MMB ng/ml Relative Index (RI) NON-AMI < or = 5 N/A BRANDT ZONE > 5 < or = 4 AMI > 5 > 4 Lab Order: PROTHROMBIN TIME PROFILE\E\INR; 03/24/16 10:15 Test: PROTHROMBIN TIME; Value: 13.9; Range: 12.3-14.5; Units: SECONDS; Status: F Test: INR; Value: 1.06; Status: F Test Note: ; THERAPUTIC HUMAN INR VALUES INDICATIONS NORMAL RANGES PROPHYLAXIS/TREATMENT OF: VENOUS THROMBOSIS 2.0-3.0 PULMONARY EMBOLISM 2.0-3.0 PREVENTION OF SYSTEMIC EMBOLISM FROM: TISSUE HEART VALVES 2.0-3.0 ACUTE MYOCARDIAL INFARCTION 2.0-3.0 VALVULAR HEART DISEASE 2.0-3.0 ATRIAL FIBRILLATION 2.0-3.0 MECHANICAL VALVES(HIGH RISK) 2.5-3.5 RECURRENT MYOCARDIAL INFARCTION 2.5-3.5 Lab Order: ERYTHROCYTE SEDIMENTATION RATE; 03/24/16 10:15 Test: ERYTHROCYTE SEDIMENTATION RATE; Value: 2; Range: 0-15; Units: mm/hr; Status: F Lab Order: C REACTIVE PROTEIN QUANTITATIV; 03/24/16 10:15 Test: C REACTIVE PROTEIN QUANTITATIV; Value: < 0.30; Range: 0.00-0.30; Units: MG/DL; Status: F Lab Order: FREE T4; SPEC'M 03/24/16 10:15 Test: FREE T4; Value: 0.98; Range: 0.76-1.46; Units: NG/DL; Status: F Lab Order: TOTAL T3; SPEC'M 03/24/16 10:15 Test: TOTAL T3; Range: 60.0-181.0; Units: NG/DL; Status: I Radiology Order: Chest, 1 View Test: Chest, 1 View REASON FOR EXAMINATION: Chest Pain; Portable chest: Single view.; ; History: Chest pain.; ; Comparison study: No comparison study.; ; Findings: EKG monitoring electrodes overlie the chest. Lungs are well inflated; and clear. Heart size is normal. Pulmonary vasculature is not increased. No; bony abnormality is seen to; ; Impression:; ; ; ; No active disease.; ; ; Signed by; Abhi Mitchell MD 03/24/2016 07:59 A; Radiology Order: CT Chest Angio R/O PE Test: CT Chest Angio R/O PE REASON FOR EXAMINATION: Chest Pain; ; CLINICAL HISTORY: Dyspnea, exclude PE.; TECHNIQUE: Multiple incremental axial, coronal and oblique images are obtained from the thoracic inle; t to the upper abdomen. Intravenous contrast material was administered as per pulmonary embolism prot; ocol.; COMMENTS:; There is excellent opacification of pulmonary arterial system without evidence for pulmonary embolism; . Aorta is of normal caliber without evidence for dissection or aneurysm.; There is no evidence of pleural or parenchymal mass. There are no pleural effusions. There is no evid; ence of hilar or mediastinal lymphadenopathy. The heart and great vessels are within normal limits.; Images of the upper abdomen demonstrate no evidence of adrenal mass.; The bony structures are free of lytic or blastic lesions. Multilevel degenerative changes are seen in; volving the visualized thoracolumbar spine.; Scattered calcifications are seen involving the aorta and major branches compatible with atherosclero; sis.; IMPRESSION:; No evidence for pulmonary embolism.; Thank you for your kind referral of this patient.; ; Outcome: 09:05 Decision to Hospitalize by Provider. ml 13:45 Discharge Assessment: Patient awake, alert and oriented x 3. No cognitive and/or dsf functional deficits noted. Patient verbalized understanding of disposition instructions. patient administered narcotics - no. The following High Risk Discharge criteria are identified: None. Admitted to PCU accompanied by nurse, accompanied by tech, via stretcher, on monitor, with chart. Condition: stable Condition: improved. CT Study completed. Property :Personal belongings accompany Pt. 13:59 Patient left the ED. ar3 Signatures: Dispatcher [employer] EDMS Fiorella Duarte MD MD Caroline Rodriguez, RN RN [facility] Sandra Alvarenga, RN NELLIE [facility] Carlos López, RN RN cz John Fisher, Reg Reg lg Irene Raymundo, INSURANCE OPERATIONS REP INSURANCE OPERATIONS REP ar3 Josefina Tierney RN NELLIE jc4 Татьяна WeldonRN RN ds Ashtyn Cantu,RN RN pml Josefina Marcus,RN RN js13 Edilia Luis, INSURANCE OPERATIONS REP INSURANCE OPERATIONS REP ls3 Gege Ramirez, Reg Reg hs2 Mariya Escamilla RN [facility] Corrections: (The following items were deleted from the chart) 05:56 05:49 General: Appears in no apparent distress, comfortable, Behavior is appropriate [facility] for age, cooperative, pleasant, [facility] 05:56 05:49 Pain: Location: chest [place] [address] 11:43 11:28 General: pr reports feeling better after that Trinidad catheter was placed. Trinidad dsf patent and draining josseline colored urine. Respirations easy and unlabored skin pink warm and dry . dsf MTDD
[2016-03-24 14:30] VITALS: BP 126/92
--- NOTE | 2016-03-24 14:37 | ER ---
DATE OF CONSULTATION: 03/24/2016 REFERRING PHYSICIAN: Emergency room. INDICATION: Atrial fibrillation and chest discomfort. HISTORY OF PRESENT ILLNESS: Mr. 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 It initially was present very infrequently and for short period of time but as time progressed, it became more frequent and would stay sometimes many minutes, up to hours at a time. It was not related to position, activity, food intake or cough or inspiration. Eventually he developed symptoms of upper respiratory infection with runny nose, plugged up sinuses and some throat soreness and started taking medications that contained decongestants, but he claims that he has not taken any in the last 48 hours. He woke up this morning with the sensation of palpitations. He has an Apple Watch and noted that his heart rate was in 120s, which is a ndiaye difference to his usual resting heart rate in 40s to 50s. He asked his who is a nurse to check him out and when she detected irregular pulse, she took him to emergency room. Evaluation in emergency room (ER) revealed evidence of atrial fibrillation with ventricular rate in 120s. He received total 10 mg of IV metoprolol and 25 mg of oral metoprolol and his heart rate became controlled but it is persistently in atrial fibrillation. At the time of my interview, he still tells me that he has intermittent chest discomfort. He denies any dyspnea and denies any dizziness, near/syncope. He does still perceive palpitations. 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 He tells me that the chest discomfort started there but he did not have symptoms of upper respiratory infection until last week of February. PAST MEDICAL HISTORY: Positive for sleep apnea. He has not been using C-PAP, apparently the last time he was checked he was told that it is no longer necessary. SURGICAL HISTORY: Positive just for adenoidectomy and wisdom teeth removal. FAMILY HISTORY: Mother has some form of lymphoproliferative disorder. Father has hypertension and diabetes. One of his grandparents had stroke and another grandfather had myocardial infarction. 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 He does not smoke. He does not drink hardly at all. He denies any recent alcohol intake. REVIEW OF SYSTEMS: Even though he had upper respiratory symptoms with runny nose, stuffy nose and sore throat, he denies any fever, chills or cough. There has been no bleeding problems. No history of stroke. No prior history of palpitations, syncope and near syncope. No chest pain until probably late January. No abdominal pain, nausea, vomiting, diarrhea. No peripheral edema. PHYSICAL EXAMINATION: He is a pleasant, middle aged man who appears approximately his calendar age. Blood pressure 138/70, heart is in atrial fibrillation in heart rate in 60s to 80s. He is afebrile. Saturation is high 90s on room air. He appears diaphoretic and his bed sheets are soaked over his back. His jugular venous pressure (JVP) is not up. No goiter. No cervical lymphadenopathy. Lungs are clear to auscultation. Heart exam reveals irregularly irregular rhythm. I do not appreciate any gallop, rub or murmur. Abdomen is soft. No tenderness or rebound tenderness. No organomegaly. Extremities are free of edema and peripheral pulses are of good quality. There is no rash. LABORATORY DATA: His CBC is normal. WBC count is 6.5. Basic metabolic panel is normal but for borderline hypokalemia with potassium 3.4. Two sets of cardiac enzymes are negative. TSH is 1.7. His INR is 1.0. ECG reveals presence of atrial fibrillation with controlled rate and no ST-T deviation. Chest x-ray is unremarkable and his CT angiography of the chest was also negative for pulmonary embolism. Somewhat interestingly, there are some scattered calcifications in large arteries of the chest suggestive of atherosclerosis. Echocardiogram that was performed in emergency room revealed presence of normal left ventricular function, no valvular disease and left atrial enlargement. There was no pericardial effusion. ASSESSMENT/PLAN: Mr. Issa is a 35-year-old previously healthy man who comes with approximately 1 month history of very atypical chest discomfort and now new onset atrial fibrillation as of early this morning. He has essentially normal echocardiogram, normal EKG, and there is no evidence for pulmonary embolism based on CT angiography of the chest. As far as the atrial fibrillation is concerned, I have to speculate that it was triggered by probably viral infection combined with the use of decongestants. At this point I would continue anticoagulation with Lovenox and I tentatively would use only beta-blockers. I believe that there is a very good chance that he will spontaneously convert back to sinus mechanism by tomorrow morning. If that should not occur, I would plan on giving him flecainide with the attempt to accomplish chemical cardioversion. If that should not be successful, then I would consider doing electrical cardioversion, but I sincerely hope that it will not be necessary. He will need at least short-term followup. As far as anticoagulation is concerned, his CHADS2-VASC score is zero and consequently he should not need long-term anticoagulation. As far as the chest pain is concerned, I am not sure what is the etiology, statistically speaking it is very unlikely that it is cardiac in nature. I would suspect that it is either of gastrointestinal (GI) or musculoskeletal etiology. Still, considering the presence of atrial fibrillation, I will tentatively plan on putting in a treadmill after the acute phase is over.
[2016-03-24] MEDS: MULTIVITAMINS/MINERALS THERAP 1 TAB PO SCH (15:22)
--- NOTE | 2016-03-24 15:40 | ECHO ---
DATE: 03/24/2016 INDICATION: Atrial fibrillation, chest pain. REFERRING PHYSICIAN: Dr. Brandt The patient measures 71 inches and weighs 97 kg. DIMENSIONS: IVS 1.2 LV 5.0 LVPW 1.2 LA 4.2 Aorta 3.3 Ascending aorta 2.9 RV 3.1 LV systolic 3.5 IVC 2.1 FINDINGS: This study is of good technical quality. The patient is in atrial fibrillation with controlled rate with heart rate fluctuating between 60-90 beats per minute. Left ventricle is of normal size and contractility. I estimate EF around 65%. Right ventricle also appears normal. Left atrium is moderately enlarged. Left calculated left atrial volume index is 35 mm 1 meter per meter square. Right atrium appears normal. All four cardiac valves were well seen and appear normal. No pericardial effusion is noted. Inferior vena cava measures 2.1 cm which indicates mild dilatation but there is appropriate collapse with respiration. Aortic root, aortic arch and abdominal aorta all appear normal. Doppler interrogation reveals no aortic mitral tricuspid or pulmonic valve disease. Evaluation of diastolic function is inconclusive due to underlying atrial fibrillation. Tissue Doppler velocities of medial and lateral annulus are 14.1 and 15.4 cm/sec which is normal. CONCLUSION: 1. Study is of good technical quality. 2. Normal LV size with borderline LVH and normal LV systolic function. Probably normal diastolic function. 3. No significant valvular disease. 4. Normal mildly elevated central venous pressure. 5. Unable to estimate pulmonary artery pressure but no indirect signs to suggest pulmonary hypertension. COMMENT: SBE prophylaxis is not recommended.
[2016-03-24 16:00] VITALS: BP 138/81
[2016-03-24] MEDS ORDERED: METOPROLOL TART 25 MG TABLET PO SCH (18:00)
[2016-03-24] MEDS: METOPROLOL TART 25 MG TABLET PO SCH (18:34)
[2016-03-24 20:00] VITALS: BP 135/84
[2016-03-24] MEDS: ACETAMINOPHEN TAB 650MG DOSE (2X325MG) PO PRN (20:19)
[2016-03-24] MEDS: ENOXAPARIN 100MG/1ML SYRINGE (J1650) SC SCH (20:19)
[2016-03-24] MEDS ORDERED: PANTOPRAZOLE 20 MG TAB PO SCH (21:00)
--- NOTE | 2016-03-24 22:58 | ECGEPIP ---
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
[2016-03-25 00:52] VITALS: BP 125/86
[2016-03-25] MEDS: METOPROLOL TART 25 MG TABLET PO SCH ×3 (00:53→11:51)
[2016-03-25 04:45] VITALS: BP 149/89
[2016-03-25 05:32] LABS: BASO # 0.1 K/mm3 (0.0-0.2); BASO % 1.4 % (0.0-1.0); EOS # 0.3 K/mm3 (0.0-0.50); EOS % 4.5 % (0.0-3.0); LARGE UNSTAINED CELL # 0.1 K/mm3 (0.0-0.4); LARGE UNSTAINED CELL % 2.1 % (0.0-4.0); LYMPH # 2.4 K/mm3 (1.5-4.5); LYMPH % 36.9 % (24.0-44.0); MEAN CORPUSCULAR HEMOGLOBIN 29.6 pg (27.0-33.0); MEAN CORPUSCULAR HGB CONC 34.5 g/dl (32.0-36.5); MEAN CORPUSCULAR VOLUME 85.8 fl (80.0-96.0); MONO # 0.3 K/mm3 (0.0-0.8); MONO % 5.4 % (0.0-5.0); NEUTROPHILS # 3.1 K/mm3 (1.8-7.7); NEUTROPHILS % 49.6 % (36.0-66.0); PLATELET COUNT, AUTOMATED 180 k/mm3 (150-450); RED CELL DISTRIBUTION WIDTH 12.9 % (11.5-14.5); WHITE BLOOD COUNT 6.2 K/mm3 (4.0-10.0)
[2016-03-25 05:44] LABS: ALBUMIN 4.1 GM/DL (3.2-5.2); ALBUMIN/GLOBULIN RATIO 1.08 (1.00-1.93); ALKALINE PHOSPHATASE 64 U/L (45-117); ALT/SGPT 28 U/L (12-78); ANION GAP 9 MEQ/L (8-16); AST/SGOT 20 U/L (15-37); BILIRUBIN,TOTAL 0.4 MG/DL (0.2-1.0); BLOOD UREA NITROGEN 14 MG/DL (7-18); CALCIUM LEVEL 9.2 MG/DL (8.5-10.1); CARBON DIOXIDE LEVEL 24 MEQ/L (21-32); CHLORIDE LEVEL 108 MEQ/L (98-107); CREATININE FOR GFR 1.04 MG/DL (0.70-1.30); GLOMERULAR FILTRATION RATE > 60.0 (>60); GLUCOSE, FASTING 107 MG/DL (70-105); POTASSIUM SERUM 4.2 MEQ/L (3.5-5.1); SODIUM LEVEL 141 MEQ/L (136-145); TOTAL PROTEIN 7.9 GM/DL (6.4-8.2)
[2016-03-25 06:20] VITALS: BP 128/68
[2016-03-25 08:00] VITALS: BP 123/83
[2016-03-25] MEDS: MULTIVITAMINS/MINERALS THERAP 1 TAB PO SCH (08:39)
[2016-03-25] MEDS: ENOXAPARIN 100MG/1ML SYRINGE (J1650) SC SCH (08:40)
[2016-03-25] MEDS: ACETAMINOPHEN TAB 650MG DOSE (2X325MG) PO PRN (08:43)
[2016-03-25 09:58] LABS: INR 0.99
[2016-03-25] MEDS ORDERED: FLECAINIDE 100 MG TABLET PO ONE (10:00)
[2016-03-25 11:52] VITALS: BP 121/76
--- NOTE | 2016-03-25 12:07 | IPN ---
DATE: 03/25/2016 Mr. Cole had a relatively uneventful night. Unfortunately, remains in atrial fibrillation with controlled rate. This morning, he still has some mild discomfort in his chest on and off and he still feels palpitations. Vital Signs: Blood pressure 128/83. Heart rate is principally constantly in the 70s. He is afebrile. Saturation 94% on room air. Weight is 97.2 kg. He is alert and oriented and appropriate. His jugular venous pulse (JVP) is not up. Lungs are clear. Heart exam irregularly irregular rhythm without gallop or murmur. No peripheral edema. Neurologically, he is intact. Laboratory-gonzalez, normal basic metabolic panel. Cardiac enzymes negative times three. Normal TSH. Normal CBC. ASSESSMENT/PLAN: Mr. Cole is a 35-year-old man without significant past medical history other than obstructive sleep apnea (ARTURO). He presented with atrial fibrillation in the setting of upper respiratory infection. So far, he did not convert to sinus mechanism within approximately 24 hours of onset of symptoms. This is rather surprising because he is otherwise healthy and has a structurally normal heart. I am going to give him 200 mg of by mouth flecainide. If he should not convert with this intervention, we can give him an additional 100 mg. But if it is not successful, then direct current (DC) cardioversion may need to be performed. I spoke about this plan with the patient.
[2016-03-25] MEDS ORDERED: XARE20TA PO (12:57)
[2016-03-25] MEDS ORDERED: RIVAROXABAN 20 MG TAB (XARELTO) PO ONE (15:30)
--- NOTE | 2016-03-25 18:48 | DSES ---
DATE OF ADMISSION: 03/24/2016 DATE OF DISCHARGE: 03/25/2016 PRIMARY CARE PHYSICIAN: None. REFERRING PHYSICIAN: None. CONSULTING PHYSICIAN: Dr. Dave. CONDITION ON DISCHARGE: Stable. FINAL DIAGNOSIS: New onset atrial fibrillation. PROCEDURES: None. HISTORY OF PRESENT ILLNESS: The patient is a 35-year-old male with a past medical history of insomnia and obstructive sleep apnea without continuous positive airway pressure (CPAP) use, who presented to the emergency room with complaints of palpitations since the morning. The patient also noted that he started having chest pain/tightness over the last three weeks. 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 Upon presentation to the emergency room, the patient was found to have palpitations, and he had an electrocardiogram (EKG) which revealed that he was in atrial fibrillation with a heart rate in the 120s. The patient was given metoprolol intravenous (IV) 5 mg times two, and then given metoprolol tartrate 25 mg orally. The patient's heart rate was brought back down to the 90s. The patient also had a CT angiogram of his chest which revealed that it is negative for pulmonary embolism. Hospitalist team was called for admission. The case was discussed with Dr. Dave. HOSPITAL COURSE: 1. New-onset atrial fibrillation. CHADSVASC score was zero. Presented with palpitations and chest tightness. Has been given metoprolol. Heart rate has been well controlled. However, had remained in sinus rhythm throughout his hospital course. This morning, he has received a dose of flecainide 200 mg orally. Thirty minutes, the patient's heart rate has returned back into sinus rhythm. The patient has an echocardiogram which was negative. It did not reveal any thrombi. During his hospital course, he was continued on metoprolol until his dose of flecainide. He has also been put on anticoagulation therapeutic doses of Lovenox 100 mg (please verify) by mouth twice a day. Case was discussed with Dr. Dave. After the patient had converted back to sinus rhythm, Dr. Dave agreed that this patient can be going home without any rate control or additional doses of flecainide. He did advise the patient to continue with anticoagulation. The patient then was given a prescription for Xarelto 20 mg by mouth daily. The patient will get the dose of Xarelto starting March 26, 2016. The patient will get a dose of Xarelto on March 25, , before he leaves. 2. Insomnia. Does not take any medications. 3. Obstructive sleep apnea. Reports that he does not have a CPAP machine and does not require the use of CPAP machine. 4. Hypokalemia has been repleted. 5. Deep venous thrombosis (DVT) prophylaxis. He is on full-dose anticoagulation. DISCHARGE MEDICATIONS: The patient is being discharged home with multivitamin one tablet by mouth daily and Xarelto 20 mg by mouth daily. 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 Dave, within the next one week. He has been advised to call to confirm/schedule appointment and advised to remain compliant with treatment plan and medication. He has been told to return to the emergency room if he experiences any problems. TIME SPENT ON DISCHARGE: 35 minutes.
--- NOTE | 2016-03-27 08:46 | ECGEPIP ---
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
--- NOTE | 2016-03-27 08:52 | ECGEPIP ---
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
--- NOTE | 2016-03-27 11:08 | EDDOCDS ---
Physician Documentation [facility] Name: Eliecer Issa Age: 35 yrs Sex: Male : 1980 Arrival Date: 03/24/2016 Time: 05:29 Bed Admit Hold Private MD: Disposition: 03/24 09:05 Critical Care:. ml Disposition: 03/24/16 09:05 Hospitalization ordered by Beckie Fernandez for Inpatient Admission. Preliminary diagnosis are Chest pain, unspecified, Unspecified atrial fibrillation. - Bed requested for PCU. - Status is Inpatient Admission. ar3 - Condition is Stable. - Problem is new. - Symptoms are unchanged. Historical: - Allergies: PENICILLINS; - Home Meds: 1. none - PMHx: Sleep Apnea w/o CPAP; - PSHx: wisdom tetth extraction; - Social history: Smoking status: Patient states was never smoker of tobacco. No barriers to communication noted. - Family history: Not pertinent. - : The pt / caregiver states he / she is not on anticoagulants. Home medication list is obtained from the patient. - Exposure Risk Screening:: None identified. Vital Signs: 05:43 BP 161 / 82; Pulse 124; Resp 16; Pulse Ox 100% on R/A; Weight 97.52 kg / 214.99 lbs; cz Height 5 ft. 11 in. (180.34 cm); 07:26 BP 178 / 98; Pulse 112; Resp 20; Temp 96.7(O); Pulse Ox 95% on R/A; Pain 0/10; jc4 07:34 BP 165 / 89 (auto/); jc4 07:34 Pulse 94 MON; Pulse Ox 98% ; jc4 07:36 BP 165 / 89; Pulse 91; Resp 20; Pulse Ox 98% on R/A; jc4 07:44 BP 172 / 114 (auto/); jc4 07:44 BP 172 / 114; Pulse 104; Resp 20; Pulse Ox 98% on R/A; jc4 07:45 Pulse 96 MON; Pulse Ox 98% ; jc4 07:55 BP 169 / 85 (auto/); jc4 07:55 Pulse 84 MON; Pulse Ox 98% ; jc4 08:09 Pulse 88 MON; Pulse Ox 96% ; jc4 08:10 BP 166 / 75 (auto/); jc4 09:09 Pulse 88 MON; Pulse Ox 97% ; jc4 09:10 BP 147 / 80 (auto/); jc4 09:33 BP 120 / 85; Pulse 82; Resp 18; Temp 98.5(TE); Pulse Ox 97% on R/A; Pain 3/10; dsf 09:33 BP 120 / 85 (auto/); dsf 09:34 Pulse 84 MON; Pulse Ox 96% ; dsf 09:40 BP 127 / 95 (auto/); dsf 09:41 Pulse 88 MON; Pulse Ox 96% ; dsf 09:55 BP 129 / 78 (auto/); dsf 09:55 Pulse 84 MON; Pulse Ox 94% ; dsf 10:10 BP 129 / 85 (auto/); dsf 10:10 Pulse 84 MON; Pulse Ox 95% ; dsf 10:25 BP 126 / 75 (auto/); dsf 10:25 Pulse 86 MON; Pulse Ox 96% ; dsf 10:40 BP 133 / 63 (auto/); dsf 10:40 Pulse 66 MON; Pulse Ox 94% ; dsf 10:40 BP 112 / 81 (auto/); dsf 10:40 Pulse 96 MON; Pulse Ox 96% ; dsf 10:55 BP 144 / 67 (auto/); dsf 10:55 Pulse 66 MON; Pulse Ox 95% ; dsf 11:10 BP 115 / 62 (auto/); dsf 11:10 Pulse 66 MON; Pulse Ox 96% ; dsf 11:25 BP 125 / 60 (auto/); dsf 11:25 Pulse 64 MON; Pulse Ox 94% ; dsf 11:27 BP 129 / 87; Pulse 94; Resp 20; Temp 98.5(TE); Pulse Ox 96% on R/A; Pain 3/10; dsf 11:27 BP 129 / 87 (auto/); dsf 11:28 Pulse 88 MON; Pulse Ox 97% ; dsf 13:41 BP 122 / 79 (auto/); dsf 13:41 Pulse 86 MON; Resp 20; Temp 98.0(TE); Pulse Ox 95% on R/A; Pain 3/10; dsf 05:43 Body Mass Index 29.99 (97.52 kg, 180.34 cm) cz MDM: 05:38 ECG WITH READING ER PHYS+CARDIAG ordered. EDMS 06:05 Ceramic Products Sales Engineer/Pulse Ox/q 30 min VS ordered. mm11 06:05 IV Saline Lock ordered. mm11 06:05 Rhythm Strip to chart ordered. mm11 06:05 Undress patient appropriately for examination ordered. mm11 06:06 Basic Metabolic Profile Ordered. EDMS 06:06 CBC with Diff Ordered. EDMS 06:06 Cardiac Injury Profile Ordered. EDMS 06:06 D-Dimer Quant Ordered. EDMS 06:06 Troponin Ordered. EDMS 06:06 Magnesium Level Ordered. EDMS 06:52 Basic Metabolic Profile Reviewed. ml 06:52 CBC with Diff Reviewed. ml 06:52 Cardiac Injury Profile Reviewed. ml 06:52 Troponin Reviewed. ml 06:52 Magnesium Level Reviewed. ml 06:53 NS 0.9% 1000 ml IV at 100 mL/hr continuous ordered. ml 06:53 Oral Temp ordered. ml 06:53 Potassium Chloride Extended Release Tablet 40 mEq PO once ordered. ml 06:53 Metoprolol 5 mg IVP every 5 minutes; Hold for SBP < 100 or HR < 60. x3 ordered. ml 06:55 Aspirin Chewable Tablet 324 mg PO once ordered. ml 06:55 Chest, 1 View Ordered. EDMS 06:56 CT Chest Angio R/O PE Ordered. EDMS 06:58 PT & APTT Ordered. EDMS 07:31 Financial registration complete. lg 07:44 [facility] Payment Agreement was scanned into Snippets and attached to record. lg 08:01 Metoprolol (Tartrate) 25 mg PO once ordered. ml 08:47 D-Dimer Quant Reviewed. ml 08:47 PT & APTT Reviewed. ml 08:47 Chest, 1 View Reviewed. ml 08:47 CT Chest Angio R/O PE Reviewed. ml 08:49 Enoxaparin (1mg/kg) 100 mg Sub-Q once; Ensure no Heparin in past 6hrs. Ensure any ml baseline labs are drawn. ordered. 08:50 BED REQUEST+ADM ordered. EDMS 09:07 ECHOCARDIOGRAM,DOPPLER/COLOR FLOW+CARDIAG ordered. EDMS 09:38 Admission / Observation Status ordered. EDMS 09:38 REGULAR DIET ordered. EDMS 09:39 THYROID STIMULATING HORMONE Ordered. EDMS 09:39 MAGNESIUM LEVEL Ordered. EDMS 09:39 CARDIAC MARKER PANEL Ordered. EDMS 09:39 CARDIAC MARKER PANEL Ordered. EDMS 09:39 TROPONIN Ordered. EDMS 09:39 TROPONIN Ordered. EDMS 09:39 PROTHROMBIN TIME PROFILE\E\INR Ordered. EDMS 09:39 ERYTHROCYTE SEDIMENTATION RATE Ordered. EDMS 09:39 C REACTIVE PROTEIN QUANTITATIV Ordered. EDMS 09:39 FREE T4 Ordered. EDMS 09:39 TOTAL T3 Ordered. EDMS 10:40 PROTHROMBIN TIME PROFILE\E\INR Reviewed. 12:01 T-Sheet-- Draft Copy was scanned into Snippets and attached to record. [facility] 13:50 ELECTROCARDIOGRAM ADULT ordered. EDMS 03/25 10:30 ECG/EKG was scanned into Snippets and attached to record. gb Administered Medications: 03/24 07:29 Drug: Metoprolol 5 mg [metoprolol 5 mg/5 mL intravenous solution (5 mL)] Route: IVP; jc4 Site: right antecubital; 07:36 Follow up: BP 165 / 89; Pulse 91 bpm; Resp 20 bpm; Pulse Ox 98% RA jc4 07:33 Drug: Potassium Chloride 40 mEq [potassium chloride ER 10 mEq tablet,extended release jc4 (4 tabs)] {Note: Medication administered by Zulema Rodriguez RN.} Route: PO; 07:33 Drug: Aspirin 324 mg [aspirin 81 mg chewable tablet (4 tabs)] {Note: Medication jc4 administered by Zulema Rodriguez RN.} Route: PO; 07:37 Drug: Metoprolol 5 mg [metoprolol 5 mg/5 mL intravenous solution (5 mL)] Route: IVP; jc4 Site: right antecubital; 07:44 Follow up: BP 172 / 114; Pulse 104 bpm; Resp 20 bpm; Pulse Ox 98% RA jc4 08:27 Drug: Metoprolol 25 mg [metoprolol tartrate 25 mg tablet (1 tabs)] Route: PO; jc4 08:28 Drug: NS 0.9% 1000 ml [sodium chloride 0.9 % intravenous solution] Route: IV; Rate: 100 jc4 mL/hr; Site: right antecubital; 09:21 Drug: Enoxaparin (1mg/kg) 100 mg [enoxaparin 100 mg/mL subcutaneous syringe (1 mL)] dsf {Co-Signature: richard (Sandra Alvarenga RN).} {Note: right love handle area .} Route: Sub-Q; Site: right upper abdomen; Critical Care Time: 09:05 Critical care time: Bedside Care: 90 minutes, Consultation: 10 minutes. Total time: 100 ml minutes Signatures: Dispatcher [employer] EDMS Fiorella Duarte MD MD ml Caroline Rodriguez, RN RN kmg1 Carlos López, RN RN cz KennynikoleDelilah nguyen, Reg Reg gb John Fisher, Reg Reg lg Jacob Terence, DO DO mm11 Irene Raymundo, YARN SPINNER YARN SPINNER ar3 Mariya Escamilla Jennifer RN jc4 Татьяна Weldon RN ds Sandra Alvarenga RN kpj The chart was reviewed and I authenticate all verbal orders and agree with the evaluation and treatment provided.Corrections: (The following items were deleted from the chart) 06:58 06:54 PROTHROMBIN TIME PROFILE\E\INR+LAB ordered. EDMS EDMS 06:58 06:54 PARTIAL THROMBOPLASTIN TIME+LAB ordered. EDMS EDMS Attachments: 07:44 [facility] Payment Agreement lg 12:01 T-Sheet-- Draft Copy [facility] 03/25 10:30 ECG/EKG gb Chart Complete MTDD
--- NOTE | 2016-03-27 11:08 | EDDOCDS ---
Physician Documentation [facility] Name: Eliecer Isas Age: 35 yrs Sex: Male : 1980 Arrival Date: 03/24/2016 Time: 05:29 Bed Admit Hold Private MD: Disposition: 03/24 09:05 Critical Care:. ml Disposition: 03/24/16 09:05 Hospitalization ordered by Beckie Fernandez for Inpatient Admission. Preliminary diagnosis are Chest pain, unspecified, Unspecified atrial fibrillation. - Bed requested for PCU. - Status is Inpatient Admission. ar3 - Condition is Stable. - Problem is new. - Symptoms are unchanged. Historical: - Allergies: PENICILLINS; - Home Meds: 1. none - PMHx: Sleep Apnea w/o CPAP; - PSHx: wisdom tetth extraction; - Social history: Smoking status: Patient states was never smoker of tobacco. No barriers to communication noted. - Family history: Not pertinent. - : The pt / caregiver states he / she is not on anticoagulants. Home medication list is obtained from the patient. - Exposure Risk Screening:: None identified. Vital Signs: 05:43 BP 161 / 82; Pulse 124; Resp 16; Pulse Ox 100% on R/A; Weight 97.52 kg / 214.99 lbs; cz Height 5 ft. 11 in. (180.34 cm); 07:26 BP 178 / 98; Pulse 112; Resp 20; Temp 96.7(O); Pulse Ox 95% on R/A; Pain 0/10; jc4 07:34 BP 165 / 89 (auto/); jc4 07:34 Pulse 94 MON; Pulse Ox 98% ; jc4 07:36 BP 165 / 89; Pulse 91; Resp 20; Pulse Ox 98% on R/A; jc4 07:44 BP 172 / 114 (auto/); jc4 07:44 BP 172 / 114; Pulse 104; Resp 20; Pulse Ox 98% on R/A; jc4 07:45 Pulse 96 MON; Pulse Ox 98% ; jc4 07:55 BP 169 / 85 (auto/); jc4 07:55 Pulse 84 MON; Pulse Ox 98% ; jc4 08:09 Pulse 88 MON; Pulse Ox 96% ; jc4 08:10 BP 166 / 75 (auto/); jc4 09:09 Pulse 88 MON; Pulse Ox 97% ; jc4 09:10 BP 147 / 80 (auto/); jc4 09:33 BP 120 / 85; Pulse 82; Resp 18; Temp 98.5(TE); Pulse Ox 97% on R/A; Pain 3/10; dsf 09:33 BP 120 / 85 (auto/); dsf 09:34 Pulse 84 MON; Pulse Ox 96% ; dsf 09:40 BP 127 / 95 (auto/); dsf 09:41 Pulse 88 MON; Pulse Ox 96% ; dsf 09:55 BP 129 / 78 (auto/); dsf 09:55 Pulse 84 MON; Pulse Ox 94% ; dsf 10:10 BP 129 / 85 (auto/); dsf 10:10 Pulse 84 MON; Pulse Ox 95% ; dsf 10:25 BP 126 / 75 (auto/); dsf 10:25 Pulse 86 MON; Pulse Ox 96% ; dsf 10:40 BP 133 / 63 (auto/); dsf 10:40 Pulse 66 MON; Pulse Ox 94% ; dsf 10:40 BP 112 / 81 (auto/); dsf 10:40 Pulse 96 MON; Pulse Ox 96% ; dsf 10:55 BP 144 / 67 (auto/); dsf 10:55 Pulse 66 MON; Pulse Ox 95% ; dsf 11:10 BP 115 / 62 (auto/); dsf 11:10 Pulse 66 MON; Pulse Ox 96% ; dsf 11:25 BP 125 / 60 (auto/); dsf 11:25 Pulse 64 MON; Pulse Ox 94% ; dsf 11:27 BP 129 / 87; Pulse 94; Resp 20; Temp 98.5(TE); Pulse Ox 96% on R/A; Pain 3/10; dsf 11:27 BP 129 / 87 (auto/); dsf 11:28 Pulse 88 MON; Pulse Ox 97% ; dsf 13:41 BP 122 / 79 (auto/); dsf 13:41 Pulse 86 MON; Resp 20; Temp 98.0(TE); Pulse Ox 95% on R/A; Pain 3/10; dsf 05:43 Body Mass Index 29.99 (97.52 kg, 180.34 cm) cz MDM: 05:38 ECG WITH READING ER PHYS+CARDIAG ordered. EDMS 06:05 Ventilated Rib Fitter/Pulse Ox/q 30 min VS ordered. mm11 06:05 IV Saline Lock ordered. mm11 06:05 Rhythm Strip to chart ordered. mm11 06:05 Undress patient appropriately for examination ordered. mm11 06:06 Basic Metabolic Profile Ordered. EDMS 06:06 CBC with Diff Ordered. EDMS 06:06 Cardiac Injury Profile Ordered. EDMS 06:06 D-Dimer Quant Ordered. EDMS 06:06 Troponin Ordered. EDMS 06:06 Magnesium Level Ordered. EDMS 06:52 Basic Metabolic Profile Reviewed. ml 06:52 CBC with Diff Reviewed. ml 06:52 Cardiac Injury Profile Reviewed. ml 06:52 Troponin Reviewed. ml 06:52 Magnesium Level Reviewed. ml 06:53 NS 0.9% 1000 ml IV at 100 mL/hr continuous ordered. ml 06:53 Oral Temp ordered. ml 06:53 Potassium Chloride Extended Release Tablet 40 mEq PO once ordered. ml 06:53 Metoprolol 5 mg IVP every 5 minutes; Hold for SBP < 100 or HR < 60. x3 ordered. ml 06:55 Aspirin Chewable Tablet 324 mg PO once ordered. ml 06:55 Chest, 1 View Ordered. EDMS 06:56 CT Chest Angio R/O PE Ordered. EDMS 06:58 PT & APTT Ordered. EDMS 07:31 Financial registration complete. lg 07:44 [facility] Payment Agreement was scanned into [employer] and attached to record. lg 08:01 Metoprolol (Tartrate) 25 mg PO once ordered. ml 08:47 D-Dimer Quant Reviewed. ml 08:47 PT & APTT Reviewed. ml 08:47 Chest, 1 View Reviewed. ml 08:47 CT Chest Angio R/O PE Reviewed. ml 08:49 Enoxaparin (1mg/kg) 100 mg Sub-Q once; Ensure no Heparin in past 6hrs. Ensure any ml baseline labs are drawn. ordered. 08:50 BED REQUEST+ADM ordered. EDMS 09:07 ECHOCARDIOGRAM,DOPPLER/COLOR FLOW+CARDIAG ordered. EDMS 09:38 Admission / Observation Status ordered. EDMS 09:38 REGULAR DIET ordered. EDMS 09:39 THYROID STIMULATING HORMONE Ordered. EDMS 09:39 MAGNESIUM LEVEL Ordered. EDMS 09:39 CARDIAC MARKER PANEL Ordered. EDMS 09:39 CARDIAC MARKER PANEL Ordered. EDMS 09:39 TROPONIN Ordered. EDMS 09:39 TROPONIN Ordered. EDMS 09:39 PROTHROMBIN TIME PROFILE\E\INR Ordered. EDMS 09:39 ERYTHROCYTE SEDIMENTATION RATE Ordered. EDMS 09:39 C REACTIVE PROTEIN QUANTITATIV Ordered. EDMS 09:39 FREE T4 Ordered. EDMS 09:39 TOTAL T3 Ordered. EDMS 10:40 PROTHROMBIN TIME PROFILE\E\INR Reviewed. 12:01 T-Sheet-- Draft Copy was scanned into [employer] and attached to record. [facility] 13:50 ELECTROCARDIOGRAM ADULT ordered. EDMS 03/25 10:30 ECG/EKG was scanned into [employer] and attached to record. gb Administered Medications: 03/24 07:29 Drug: Metoprolol 5 mg [metoprolol 5 mg/5 mL intravenous solution (5 mL)] Route: IVP; jc4 Site: right antecubital; 07:36 Follow up: BP 165 / 89; Pulse 91 bpm; Resp 20 bpm; Pulse Ox 98% RA jc4 07:33 Drug: Potassium Chloride 40 mEq [potassium chloride ER 10 mEq tablet,extended release jc4 (4 tabs)] {Note: Medication administered by Zulema Rodriguez RN.} Route: PO; 07:33 Drug: Aspirin 324 mg [aspirin 81 mg chewable tablet (4 tabs)] {Note: Medication jc4 administered by Zulema Rodriguez RN.} Route: PO; 07:37 Drug: Metoprolol 5 mg [metoprolol 5 mg/5 mL intravenous solution (5 mL)] Route: IVP; jc4 Site: right antecubital; 07:44 Follow up: BP 172 / 114; Pulse 104 bpm; Resp 20 bpm; Pulse Ox 98% RA jc4 08:27 Drug: Metoprolol 25 mg [metoprolol tartrate 25 mg tablet (1 tabs)] Route: PO; jc4 08:28 Drug: NS 0.9% 1000 ml [sodium chloride 0.9 % intravenous solution] Route: IV; Rate: 100 jc4 mL/hr; Site: right antecubital; 09:21 Drug: Enoxaparin (1mg/kg) 100 mg [enoxaparin 100 mg/mL subcutaneous syringe (1 mL)] dsf {Co-Signature: richard (Sandra Alvarenga RN).} {Note: right love handle area .} Route: Sub-Q; Site: right upper abdomen; Critical Care Time: 09:05 Critical care time: Bedside Care: 90 minutes, Consultation: 10 minutes. Total time: 100 ml minutes Signatures: Dispatcher [employer] EDMS Fiorella Duarte MD MD ml Caroline Rodriguez, RN RN [id number] Carlos López, RN RN cz KennynikoleDelilah nguyen, Reg Reg gb John Fisher, Reg Reg lg Jacob Terence, DO DO mm11 Irene Raymundo, INDUSTRY OPERATIONS INVESTIGATOR INDUSTRY OPERATIONS INVESTIGATOR ar3 Mariya Escamilla Jennifer RN jc4 Татьяна Weldon RN ds Sandra Alvarenga RN kpj The chart was reviewed and I authenticate all verbal orders and agree with the evaluation and treatment provided.Corrections: (The following items were deleted from the chart) 06:58 06:54 PROTHROMBIN TIME PROFILE\E\INR+LAB ordered. EDMS EDMS 06:58 06:54 PARTIAL THROMBOPLASTIN TIME+LAB ordered. EDMS EDMS Attachments: 07:44 [facility] Payment Agreement lg 12:01 T-Sheet-- Draft Copy [facility] 03/25 10:30 ECG/EKG gb Chart Complete MTDD
--- NOTE | 2016-03-27 11:08 | EDDOCDS ---
Nurse's Notes [facility] Name: Eliecer Issa Age: 35 yrs Sex: Male : 1980 Arrival Date: 03/24/2016 Time: 05:29 Bed Admit Hold Private MD: Diagnosis: Chest pain, unspecified;Unspecified atrial fibrillation Presentation: 03/24 05:39 Presenting complaint: Patient states: he woke up this morning with palpatations pt cz denies any use of supplements denies caffeine increaed use. pt chest pain for 3 weeks rates pain at 6/10 no change with deep breathing. Aspirin was not taken prior to arrival. Adult Sepsis Screening: The patient does not have new or worsening altered mentation. Patient's respiratory rate is less than 22. Systolic blood pressure is greater than 100. Patient has a qSOFA score of 0- Negative Sepsis Screen. Suicide/Homicide risk assessment- the patient denies having any suicidal and/or homicidal ideations and does not present with any other emotional, behavioral or mental health complaints. 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 Transition of care: patient was not received from another setting of care. 05:39 Acuity: FARIDA Level 2 cz 05:39 Method Of Arrival: Walkin/Carried/Asstd cz Triage Assessment: 05:43 General: Appears uncomfortable. Pain: Location: chest Pain currently is 6 out of 10 on cz a pain scale. HIV screening NA for this visit Offered previously. Historical: - Allergies: PENICILLINS; - Home Meds: 1. none - PMHx: Sleep Apnea w/o CPAP; - PSHx: wisdom tetth extraction; - Social history: Smoking status: Patient states was never smoker of tobacco. No barriers to communication noted. - Family history: Not pertinent. - : The pt / caregiver states he / she is not on anticoagulants. Home medication list is obtained from the patient. - Exposure Risk Screening:: None identified. Screenin:49 Screening information is obtained from the patient. Fall risk: No risks identified. kmg1 Assistance ADL's: requires no assistance with activities of daily living. Abuse/DV Screen: The patient / caregiver reports he/she is: not in a situation that causes fear, pain or injury. Nutritional screening: No deficits noted. Advance Directives: There is no active DNR order. home support is adequate. Assessment: 05:49 General: Appears in no apparent distress, comfortable, Behavior is appropriate for age, kmg1 cooperative, pleasant. 05:49 Pain: Location: mid-sternal area Pain currently is 6 out of 10 on a pain scale. Quality kmg1 of pain is described as tightness Pain began 3 weeks ago. Neurological: Level of Consciousness is awake, alert. EENT: No deficits noted. Cardiovascular: Capillary refill < 3 seconds Clubbing of nail beds is absent Heart tones S1 S2 present rhythm irregular. Rhythm is sinus tachycardia No ectopy. Cardiovascular: Chest pain is described as Pain is 6 out of 10 on a pain scale. is located in substernal area Chest pain began 3 weeks ago Reports palpitations, since this am. Respiratory: Airway is patent Respiratory effort is even, unlabored, Respiratory pattern is regular, symmetrical. GI: No deficits noted. : No deficits noted. Derm: Skin is pink, warm & dry. Musculoskeletal: No deficits noted. 07:39 General: Appears in no apparent distress, comfortable, Behavior is cooperative, jc4 pleasant. Pain: Pain currently is 4 out of 10 on a pain scale. Neurological: Level of Consciousness is awake, alert, Oriented to person, place, time. Cardiovascular: Capillary refill < 3 seconds Chest pain is described as Pain is 4 out of 10 on a pain scale. quality is tightness is located in substernal area. Respiratory: Airway is patent Respiratory effort is even, unlabored, Respiratory pattern is regular, symmetrical. Derm: Skin is pink, warm & dry. 08:15 General: Per Dr. Brandt, hold 3rd dose of Lopressor. jc4 08:25 General: Appears in no apparent distress, comfortable. Neurological: Level of jc4 Consciousness is awake, alert, Oriented to person, place, time. Cardiovascular: Capillary refill < 3 seconds. Derm: Skin is pink, warm & dry. 09:22 General: Dr. Fernandez in room examining patient . dsf 09:28 General: Appears in no apparent distress, comfortable, Behavior is appropriate for age, dsf cooperative. Pain: Location: mid-sternal area Pain currently is 3 out of 10 on a pain scale. Pain does not radiate. Quality of pain is described as tightness. Neurological: Level of Consciousness is awake, alert. Cardiovascular: Capillary refill < 3 seconds Heart tones S1 S2 present Rhythm is atrial fibrillation Reports palpitations. Respiratory: Airway is patent Respiratory effort is even, unlabored, Respiratory pattern is regular, symmetrical, Breath sounds are clear bilaterally. GI: Abdomen is non- distended Bowel sounds present X 4 quads. Abd is soft and non tender X 4 quads. Derm: Skin is pink, warm & dry. 10:28 Adult Sepsis Screening: The patient does not have new or worsening altered mentation. dsf Patient's respiratory rate is less than 22. Systolic blood pressure is greater than 100. Patient has a qSOFA score of 0- Negative Sepsis Screen. General: Appears in no apparent distress, Behavior is appropriate for age, cooperative. Neurological: Level of Consciousness is awake, alert. Cardiovascular: Capillary refill < 3 seconds Rhythm is atrial fibrillation. Respiratory: Airway is patent Respiratory effort is even, unlabored, Respiratory pattern is regular, symmetrical. Derm: Skin is pink, warm & dry. 11:28 General: Appears in no apparent distress, comfortable, family at bedside . Behavior is dsf appropriate for age, cooperative. Neurological: Level of Consciousness is awake, alert, Oriented to person, place, time. Cardiovascular: Capillary refill < 3 seconds Rhythm is atrial fibrillation. Respiratory: Airway is patent Respiratory effort is even, unlabored, Respiratory pattern is regular, symmetrical. Derm: Skin is pink, warm & dry. 12:28 Adult Sepsis Screening: The patient does not have new or worsening altered mentation. dsf Patient's respiratory rate is less than 22. Systolic blood pressure is greater than 100. Patient has a qSOFA score of 0- Negative Sepsis Screen. General: Appears in no apparent distress, comfortable, Behavior is appropriate for age, cooperative. Pain: Location: mid-sternal area Pain currently is 3 out of 10 on a pain scale. Quality of pain is described as tightness. Neurological: Level of Consciousness is awake, alert. Cardiovascular: Capillary refill < 3 seconds Rhythm is atrial fibrillation. Respiratory: Airway is patent Respiratory effort is even, unlabored, Respiratory pattern is regular, symmetrical. Derm: Skin is pink, warm & dry. 13:44 Adult Sepsis Screening: The patient does not have new or worsening altered mentation. dsf Patient's respiratory rate is less than 22. Systolic blood pressure is greater than 100. Patient has a qSOFA score of 0- Negative Sepsis Screen. General: Appears in no apparent distress, Behavior is appropriate for age, cooperative. Pain: Location: mid-sternal area Pain currently is 3 out of 10 on a pain scale. Pain does not radiate. Quality of pain is described as tightness. Neurological: Level of Consciousness is awake, alert, Oriented to person, place, time. Cardiovascular: Capillary refill < 3 seconds Heart tones S1 S2 present Rhythm is atrial fibrillation. Respiratory: Airway is patent Respiratory effort is even, unlabored, Respiratory pattern is regular, symmetrical, Breath sounds are clear bilaterally. GI: Abdomen is non- distended Bowel sounds present X 4 quads. Abd is soft and non tender X 4 quads. Derm: Skin is pink, warm & dry. Vital Signs: 05:43 BP 161 / 82; Pulse 124; Resp 16; Pulse Ox 100% on R/A; Weight 97.52 kg; Height 5 ft. 11 cz in. (180.34 cm); 07:26 BP 178 / 98; Pulse 112; Resp 20; Temp 96.7(O); Pulse Ox 95% on R/A; Pain 0/10; jc4 07:34 BP 165 / 89 (auto/); jc4 07:34 Pulse 94 MON; Pulse Ox 98% ; jc4 07:36 BP 165 / 89; Pulse 91; Resp 20; Pulse Ox 98% on R/A; jc4 07:44 BP 172 / 114 (auto/); jc4 07:44 BP 172 / 114; Pulse 104; Resp 20; Pulse Ox 98% on R/A; jc4 07:45 Pulse 96 MON; Pulse Ox 98% ; jc4 07:55 BP 169 / 85 (auto/); jc4 07:55 Pulse 84 MON; Pulse Ox 98% ; jc4 08:09 Pulse 88 MON; Pulse Ox 96% ; jc4 08:10 BP 166 / 75 (auto/); jc4 09:09 Pulse 88 MON; Pulse Ox 97% ; jc4 09:10 BP 147 / 80 (auto/); jc4 09:33 BP 120 / 85; Pulse 82; Resp 18; Temp 98.5(TE); Pulse Ox 97% on R/A; Pain 3/10; dsf 09:33 BP 120 / 85 (auto/); dsf 09:34 Pulse 84 MON; Pulse Ox 96% ; dsf 09:40 BP 127 / 95 (auto/); dsf 09:41 Pulse 88 MON; Pulse Ox 96% ; dsf 09:55 BP 129 / 78 (auto/); dsf 09:55 Pulse 84 MON; Pulse Ox 94% ; dsf 10:10 BP 129 / 85 (auto/); dsf 10:10 Pulse 84 MON; Pulse Ox 95% ; dsf 10:25 BP 126 / 75 (auto/); dsf 10:25 Pulse 86 MON; Pulse Ox 96% ; dsf 10:40 BP 133 / 63 (auto/); dsf 10:40 Pulse 66 MON; Pulse Ox 94% ; dsf 10:40 BP 112 / 81 (auto/); dsf 10:40 Pulse 96 MON; Pulse Ox 96% ; dsf 10:55 BP 144 / 67 (auto/); dsf 10:55 Pulse 66 MON; Pulse Ox 95% ; dsf 11:10 BP 115 / 62 (auto/); dsf 11:10 Pulse 66 MON; Pulse Ox 96% ; dsf 11:25 BP 125 / 60 (auto/); dsf 11:25 Pulse 64 MON; Pulse Ox 94% ; dsf 11:27 BP 129 / 87; Pulse 94; Resp 20; Temp 98.5(TE); Pulse Ox 96% on R/A; Pain 3/10; dsf 11:27 BP 129 / 87 (auto/); dsf 11:28 Pulse 88 MON; Pulse Ox 97% ; dsf 13:41 BP 122 / 79 (auto/); dsf 13:41 Pulse 86 MON; Resp 20; Temp 98.0(TE); Pulse Ox 95% on R/A; Pain 3/10; dsf 05:43 Body Mass Index 29.99 (97.52 kg, 180.34 cm) cz Vitals: 05:43 Log In Time: March 24, 2016 at 03:32. cz 05:49 Refer to monitor trend for complete vital signs trends. kmg1 ED Course: 05:31 Patient visited by Gege Ramirez, Reg. hs2 05:31 Patient moved to Waiting hs2 05:37 Caroline Rodriguez, RN is Primary Nurse. cz 05:37 Patient moved to 7 cz 05:42 Triage Initiated cz 05:48 Inserted saline lock: 18 gauge in left antecubital area. kmg1 05:49 The patient / caregiver is instructed regarding the plan of care and ED course. Cardiac kmg1 monitor on. Pulse ox on. NIBP on. 05:57 Patient visited by Edilia Luis PCA. ls3 05:57 Patient visited by Caroline Rodriguez, NELLIE. kmg1 05:57 EKG done. (by ED staff). Reviewed by Terence James DO. ls3 06:07 Magnesium Level Sent. kmg1 06:07 Basic Metabolic Profile Sent. kmg1 06:07 CBC with Diff Sent. kmg1 06:07 Cardiac Injury Profile Sent. kmg1 06:07 Troponin Sent. kmg1 06:16 D-Dimer Quant Sent. kmg1 06:42 Fiorella Duarte MD is Attending Physician. ml 06:42 Patient visited by Fiorella Duarte MD. ml 07:29 Primary Nurse role handed off by Caroline Rodriguez, RN [id number] 07:29 Inserted saline lock: 20 gauge in right antecubital area. jc4 07:40 Patient visited by Josefina Tierney RN. jc4 07:42 Patient name changed from Eliecer\S\Jr\S\Luis Manuel\S\ to Eilecer\S\Jus\S\Luis Manuel. EDMS 07:44 [facility] Payment Agreement was scanned into [employer] and attached to record. lg 08:09 CT Chest Angio R/O PE Returned. EDMS 08:09 Chest, 1 View Returned. EDMS 08:25 Patient visited by Josefina Tierney, NELLIE. jc4 09:03 Patient visited by Josefina Tierney, NELLIE. jc4 09:04 Beckie Fernandez is Hospitalizing Provider. ml 09:29 Patient visited by Татьяна Weldon RN. dsf 09:57 Patient moved to Admit Hold kpj 10:30 Patient visited by Татьяна Weldon,NELLIE. dsf 11:42 Patient visited by Татьяна Weldon,NELLIE. dsf 11:43 Patient visited by Татьяна Weldon,NELLIE. dsf 12:01 T-Sheet-- Draft Copy was scanned into [employer] and attached to record. seh 12:45 Patient visited by Татьяна Weldon,NELLIE. dsf 13:45 No procedures done that require assistance. dsf 03/25 10:30 ECG/EKG was scanned into [employer] and attached to record. gb Administered Medications: 03/24 07:29 Drug: Metoprolol 5 mg [metoprolol 5 mg/5 mL intravenous solution (5 mL)] Route: IVP; jc4 Site: right antecubital; 07:36 Follow up: BP 165 / 89; Pulse 91 bpm; Resp 20 bpm; Pulse Ox 98% RA jc4 07:33 Drug: Potassium Chloride 40 mEq [potassium chloride ER 10 mEq tablet,extended release jc4 (4 tabs)] {Note: Medication administered by Zulmea Rodriguez RN.} Route: PO; 07:33 Drug: Aspirin 324 mg [aspirin 81 mg chewable tablet (4 tabs)] {Note: Medication jc4 administered by Zulema Rodriguez RN.} Route: PO; 07:37 Drug: Metoprolol 5 mg [metoprolol 5 mg/5 mL intravenous solution (5 mL)] Route: IVP; jc4 Site: right antecubital; 07:44 Follow up: BP 172 / 114; Pulse 104 bpm; Resp 20 bpm; Pulse Ox 98% RA jc4 08:27 Drug: Metoprolol 25 mg [metoprolol tartrate 25 mg tablet (1 tabs)] Route: PO; jc4 08:28 Drug: NS 0.9% 1000 ml [sodium chloride 0.9 % intravenous solution] Route: IV; Rate: 100 jc4 mL/hr; Site: right antecubital; 09:21 Drug: Enoxaparin (1mg/kg) 100 mg [enoxaparin 100 mg/mL subcutaneous syringe (1 mL)] dsf {Co-Signature: kpdamaso (Sandra Alvarenga RN).} {Note: right love handle area .} Route: Sub-Q; Site: right upper abdomen; Output: 07:37 Urine: 350.00ml (Voided); Total: 350.00ml. jc4 11:33 Urine: 600.00ml (Voided); Total: 950.00ml. pml Order Results: Lab Order: Basic Metabolic Profile; SPEC'M 03/24/16 05:52 Test: GLUCOSE, FASTING; Value: 102; Range: 70-105; Units: MG/DL; Status: F Test: BLOOD UREA NITROGEN; Value: 17; Range: 7-18; Units: MG/DL; Status: F Test: CREATININE FOR GFR; Value: 1.28; Range: 0.70-1.30; Units: MG/DL; Status: F Test: GLOMERULAR FILTRATION RATE; Value: > 60.0; Range: >60; Status: F Test: SODIUM LEVEL; Value: 143; Range: 136-145; Units: MEQ/L; Status: F Test: POTASSIUM SERUM; Value: 3.4; Range: 3.5-5.1; Abnormal: Below low normal; Units: MEQ/L; Status: F Test: CHLORIDE LEVEL; Value: 107; Range: 98-107; Units: MEQ/L; Status: F Test: CARBON DIOXIDE LEVEL; Value: 26; Range: 21-32; Units: MEQ/L; Status: F Test: ANION GAP; Value: 10; Range: 8-16; Units: MEQ/L; Status: F Test: CALCIUM LEVEL; Value: 9.9; Range: 8.5-10.1; Units: MG/DL; Status: F Test Note: ; Units are mL/min/1.73 m2 Chronic Kidney Disease Staging per NKF: Stage I & II GFR >=60 Normal to Mildly Decreased Stage III GFR 30-59 Moderately Decreased Stage IV GFR 15-29 Severely Decreased Stage V GFR <15 Very Little GFR Left ESRD GFR <15 on ANIMAL CARE GIVER Lab Order: CBC with Diff; SPEC'M 03/24/16 05:52 Test: WHITE BLOOD COUNT; Value: 6.5; Range: 4.0-10.0; Units: K/mm3; Status: F Test: RED BLOOD COUNT; Value: 5.63; Range: 4.30-6.10; Units: M/mm3; Status: F Test: HEMOGLOBIN; Value: 16.6; Range: 14.0-18.0; Units: g/dl; Status: F Test: HEMATOCRIT; Value: 47.9; Range: 42.0-52.0; Units: %; Status: F Test: MEAN CORPUSCULAR VOLUME; Value: 85.2; Range: 80.0-96.0; Units: fl; Status: F Test: MEAN CORPUSCULAR HEMOGLOBIN; Value: 29.5; Range: 27.0-33.0; Units: pg; Status: F Test: MEAN CORPUSCULAR HGB CONC; Value: 34.6; Range: 32.0-36.5; Units: g/dl; Status: F Test: RED CELL DISTRIBUTION WIDTH; Value: 13.0; Range: 11.5-14.5; Units: %; Status: F Test: PLATELET COUNT, AUTOMATED; Value: 185; Range: 150-450; Units: k/mm3; Status: F Test: NEUTROPHILS %; Value: 51.1; Range: 36.0-66.0; Units: %; Status: F Test: LYMPH %; Value: 35.0; Range: 24.0-44.0; Units: %; Status: F Test: MONO %; Value: 4.7; Range: 0.0-5.0; Units: %; Status: F Test: EOS %; Value: 4.9; Range: 0.0-3.0; Abnormal: Above high normal; Units: %; Status: F Test: BASO %; Value: 2.2; Range: 0.0-1.0; Abnormal: Above high normal; Units: %; Status: F Test: LARGE UNSTAINED CELL %; Value: 2.0; Range: 0.0-4.0; Units: %; Status: F Test: NEUTROPHILS #; Value: 3.3; Range: 1.8-7.7; Units: K/mm3; Status: F Test: LYMPH #; Value: 2.4; Range: 1.5-4.5; Units: K/mm3; Status: F Test: MONO #; Value: 0.3; Range: 0.0-0.8; Units: K/mm3; Status: F Test: EOS #; Value: 0.3; Range: 0.0-0.50; Units: K/mm3; Status: F Test: BASO #; Value: 0.1; Range: 0.0-0.2; Units: K/mm3; Status: F Test: LARGE UNSTAINED CELL #; Value: 0.1; Range: 0.0-0.4; Units: K/mm3; Status: F Lab Order: Cardiac Injury Profile; SPEC'M 03/24/16 05:52 Test: CPK CREATINE PHOSPHOKINASE; Value: 197; Range: 39-308; Units: U/L; Status: F Test: CK-MB VALUE MASS; Value: 1.0; Range: 0.0-3.6; Units: NG/ML; Status: F Test: MB/CK RELATIVE INDEX; Value: 0.50; Range: < OR =4; Status: F Test Note: ; DIAGNOSIS CRITERIA MMB ng/ml Relative Index (RI) NON-AMI < or = 5 N/A BRANDT ZONE > 5 < or = 4 AMI > 5 > 4 Lab Order: D-Dimer Quant; [facility] 03/24/16 06:16 Test: D-DIMER QUANT; Value: < 270.0; Range: <500; Units: ng/ml; Status: F Lab Order: Troponin; [facility] 03/24/16 05:52 Test: TROPONIN I; Value: < 0.02; Range: < 0.10; Units: NG/ML; Status: F Test Note: ; Troponin I Reference Interval for Autopilot LOCI: 99th Percentile= 0.00-0.045 ng/ml Risk Stratification: <= 0.10 ng/ml Decreased Risk for Adverse Clinical Events. 0.10-1.50 ng/ml Increased Risk for Adverse Clinical Events. Evaluation of additional criterion and/or repeat testing in 2-6 hours is suggested to rule out myocardial damage. >= 1.50 ng/ml Indicative of Myocardial Injury. Lab Order: Magnesium Level; [facility] 03/24/16 05:52 Test: MAGNESIUM LEVEL; Value: 2.0; Range: 1.8-2.4; Units: MG/DL; Status: F Lab Order: PT & APTT; [facility] 03/24/16 06:16 Test: PROTHROMBIN TIME; Value: 13.1; Range: 12.3-14.5; Units: SECONDS; Status: F Test: INR; Value: 0.98; Status: F Test: PARTIAL THROMBOPLASTIN TIME; Value: 28.5; Range: 26.6-37.1; Units: SECONDS; Status: F Test Note: ; THERAPUTIC HUMAN INR VALUES INDICATIONS NORMAL RANGES PROPHYLAXIS/TREATMENT OF: VENOUS THROMBOSIS 2.0-3.0 PULMONARY EMBOLISM 2.0-3.0 PREVENTION OF SYSTEMIC EMBOLISM FROM: TISSUE HEART VALVES 2.0-3.0 ACUTE MYOCARDIAL INFARCTION 2.0-3.0 VALVULAR HEART DISEASE 2.0-3.0 ATRIAL FIBRILLATION 2.0-3.0 MECHANICAL VALVES(HIGH RISK) 2.5-3.5 RECURRENT MYOCARDIAL INFARCTION 2.5-3.5 Lab Order: THYROID STIMULATING HORMONE; 03/24/16 10:15 Test: THYROID STIMULATING HORMONE; Value: 1.670; Range: 0.358-3.740; Units: uIU/ML; Status: F Lab Order: MAGNESIUM LEVEL; 03/24/16 10:15 Test: MAGNESIUM LEVEL; Value: 2.3; Range: 1.8-2.4; Units: MG/DL; Status: F Lab Order: CARDIAC MARKER PANEL; 03/24/16 10:15 Test: CPK CREATINE PHOSPHOKINASE; Value: 163; Range: 39-308; Units: U/L; Status: F Test: CK-MB VALUE MASS; Value: 1.0; Range: 0.0-3.6; Units: NG/ML; Status: F Test: MB/CK RELATIVE INDEX; Value: 0.61; Range: < OR =4; Status: F Test: TROPONIN I; Value: < 0.02; Range: < 0.10; Units: NG/ML; Status: F Test Note: ; DIAGNOSIS CRITERIA MMB ng/ml Relative Index (RI) NON-AMI < or = 5 N/A BRANDT ZONE > 5 < or = 4 AMI > 5 > 4 Lab Order: PROTHROMBIN TIME PROFILE\E\INR; 03/24/16 10:15 Test: PROTHROMBIN TIME; Value: 13.9; Range: 12.3-14.5; Units: SECONDS; Status: F Test: INR; Value: 1.06; Status: F Test Note: ; THERAPUTIC HUMAN INR VALUES INDICATIONS NORMAL RANGES PROPHYLAXIS/TREATMENT OF: VENOUS THROMBOSIS 2.0-3.0 PULMONARY EMBOLISM 2.0-3.0 PREVENTION OF SYSTEMIC EMBOLISM FROM: TISSUE HEART VALVES 2.0-3.0 ACUTE MYOCARDIAL INFARCTION 2.0-3.0 VALVULAR HEART DISEASE 2.0-3.0 ATRIAL FIBRILLATION 2.0-3.0 MECHANICAL VALVES(HIGH RISK) 2.5-3.5 RECURRENT MYOCARDIAL INFARCTION 2.5-3.5 Lab Order: ERYTHROCYTE SEDIMENTATION RATE; 03/24/16 10:15 Test: ERYTHROCYTE SEDIMENTATION RATE; Value: 2; Range: 0-15; Units: mm/hr; Status: F Lab Order: C REACTIVE PROTEIN QUANTITATIV; 03/24/16 10:15 Test: C REACTIVE PROTEIN QUANTITATIV; Value: < 0.30; Range: 0.00-0.30; Units: MG/DL; Status: F Lab Order: FREE T4; SPEC'M 03/24/16 10:15 Test: FREE T4; Value: 0.98; Range: 0.76-1.46; Units: NG/DL; Status: F Lab Order: TOTAL T3; SPEC'M 03/24/16 10:15 Test: TOTAL T3; Range: 60.0-181.0; Units: NG/DL; Status: I Radiology Order: Chest, 1 View Test: Chest, 1 View REASON FOR EXAMINATION: Chest Pain; Portable chest: Single view.; ; History: Chest pain.; ; Comparison study: No comparison study.; ; Findings: EKG monitoring electrodes overlie the chest. Lungs are well inflated; and clear. Heart size is normal. Pulmonary vasculature is not increased. No; bony abnormality is seen to; ; Impression:; ; ; ; No active disease.; ; ; Signed by; Abhi Mitchell MD 03/24/2016 07:59 A; Radiology Order: CT Chest Angio R/O PE Test: CT Chest Angio R/O PE REASON FOR EXAMINATION: Chest Pain; ; CLINICAL HISTORY: Dyspnea, exclude PE.; TECHNIQUE: Multiple incremental axial, coronal and oblique images are obtained from the thoracic inle; t to the upper abdomen. Intravenous contrast material was administered as per pulmonary embolism prot; ocol.; COMMENTS:; There is excellent opacification of pulmonary arterial system without evidence for pulmonary embolism; . Aorta is of normal caliber without evidence for dissection or aneurysm.; There is no evidence of pleural or parenchymal mass. There are no pleural effusions. There is no evid; ence of hilar or mediastinal lymphadenopathy. The heart and great vessels are within normal limits.; Images of the upper abdomen demonstrate no evidence of adrenal mass.; The bony structures are free of lytic or blastic lesions. Multilevel degenerative changes are seen in; volving the visualized thoracolumbar spine.; Scattered calcifications are seen involving the aorta and major branches compatible with atherosclero; sis.; IMPRESSION:; No evidence for pulmonary embolism.; Thank you for your kind referral of this patient.; ; Outcome: 09:05 Decision to Hospitalize by Provider. ml 13:45 Discharge Assessment: Patient awake, alert and oriented x 3. No cognitive and/or dsf functional deficits noted. Patient verbalized understanding of disposition instructions. patient administered narcotics - no. The following High Risk Discharge criteria are identified: None. Admitted to PCU accompanied by nurse, accompanied by tech, via stretcher, on monitor, with chart. Condition: stable Condition: improved. CT Study completed. Property :Personal belongings accompany Pt. 13:59 Patient left the ED. ar3 Signatures: Dispatcher [employer] EDMS Fiorella Duarte MD MD Caroline Rodriguez, RN RN km Sandra Alvarenga, RN NELLIE kpj Carlos López, RN RN cz Cabrera, Delilah, Reg Reg gb Ganter, LoriLee, Reg Reg lg Zackary, Irene, INCLINOMETER TESTER INCLINOMETER TESTER ar3 Josefina Tierney RN NELLIE jc4 Татьяна WeldonRN NELLIE ramosf Ashtyn CantuRN NELLIE [facility] Josefina Marcus,RN RN [id number] Edilia Luis, INCLINOMETER TESTER INCLINOMETER TESTER ls3 Gege Ramirez, Reg Reg hs2 AndiMariya RN [facility] Corrections: (The following items were deleted from the chart) 05:56 05:49 General: Appears in no apparent distress, comfortable, Behavior is appropriate [facility] for age, cooperative, pleasant, [facility] 05:56 05:49 Pain: Location: chest [place] [id number] 11:43 11:28 General: pr reports feeling better after that Trinidad catheter was placed. Trinidad dsf patent and draining josseline colored urine. Respirations easy and unlabored skin pink warm and dry . dsf Chart Complete MTDD
== END 2016-03-25 16:15 | disposition home or self-care (01) | DRG 310 ==
LOC: M ED 05:29 → M ED INP 09:32 → M PCU 14:00
PROVIDERS: ADMIT Internal Medicine; ATTEND Internal Medicine
DX: I48.91 Unspecified atrial fibrillation (principal); G47.00 Insomnia, unspecified; G47.33 Obstructive sleep apnea (adult) (pediatric); E87.6 Hypokalemia; Z88.1 Allergy status to other antibiotic agents; Z82.49 Family history of ischemic heart disease and other diseases of the circulatory system; Z83.3 Family history of diabetes mellitus; Z80.9 Family history of malignant neoplasm, unspecified

== ENCOUNTER 2016-04-22 17:30 | Emergency (ER) | payer OTHER ==
[~2016-04-22 17:30] MED LIST: VITMTA PO; XARE20TA PO
[2016-04-22 19:03] LABS: ANION GAP 10 MEQ/L (8-16); BLOOD UREA NITROGEN 18 MG/DL (7-18); CALCIUM LEVEL 9.1 MG/DL (8.5-10.1); CARBON DIOXIDE LEVEL 27 MEQ/L (21-32); CHLORIDE LEVEL 107 MEQ/L (98-107); GLOMERULAR FILTRATION RATE > 60.0 (>60); GLUCOSE, FASTING 104 MG/DL (70-105); MAGNESIUM LEVEL 2.1 MG/DL (1.8-2.4); POTASSIUM SERUM 3.7 MEQ/L (3.5-5.1); SODIUM LEVEL 144 MEQ/L (136-145); T UPTAKE 36 % (33-40); THYROXINE (T4) 9.1 UG/DL (4.5-12.0)
[2016-04-22 19:04] LABS: BASO # 0.1 K/mm3 (0.0-0.2); BASO % 0.9 % (0.0-1.0); EOS # 0.3 K/mm3 (0.0-0.50); EOS % 3.8 % (0.0-3.0); LARGE UNSTAINED CELL # 0.2 K/mm3 (0.0-0.4); LARGE UNSTAINED CELL % 2.1 % (0.0-4.0); LYMPH # 2.5 K/mm3 (1.5-4.5); LYMPH % 31.9 % (24.0-44.0); MEAN CORPUSCULAR HEMOGLOBIN 29.1 pg (27.0-33.0); MEAN CORPUSCULAR HGB CONC 34.2 g/dl (32.0-36.5); MEAN CORPUSCULAR VOLUME 85.2 fl (80.0-96.0); MONO # 0.4 K/mm3 (0.0-0.8); MONO % 5.6 % (0.0-5.0); NEUTROPHILS # 4.1 K/mm3 (1.8-7.7); NEUTROPHILS % 55.7 % (36.0-66.0); PLATELET COUNT, AUTOMATED 196 k/mm3 (150-450); RED CELL DISTRIBUTION WIDTH 12.7 % (11.5-14.5); WHITE BLOOD COUNT 7.4 K/mm3 (4.0-10.0)
[2016-04-22 19:05] LABS: INR 1.06
--- NOTE | 2016-04-22 19:33 | EDDOCDS ---
Nurse's Notes [facility] Name: Eliecer Issa Age: 35 yrs Sex: Male : 1980 Arrival Date: 04/22/2016 Time: 17:30 Bed 8 Private MD: Other - Complete Info On Cds Diagnosis: Cardiac arrhythmia, unspecified-atrialfibrilation with rapid response Presentation: 04/22 17:39 Presenting complaint: Patient states: had irregular heart beat for last 2 1/2 hours. kr3 reports upon arrival to ED felt heart beat go back to normal. Adult Sepsis Screening: The patient does not have new or worsening altered mentation. Patient's respiratory rate is less than 22. Systolic blood pressure is greater than 100. Patient has a qSOFA score of 0- Negative Sepsis Screen. Suicide/Homicide risk assessment- the patient denies having any suicidal and/or homicidal ideations and does not present with any other emotional, behavioral or mental health complaints. 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 Transition of care: patient was not received from another setting of care. 17:39 Method Of Arrival: Walkin/Carried/Asstd kr3 17:39 Acuity: FARIDA Level 2 kr3 Triage Assessment: 17:41 General: Appears in no apparent distress, comfortable, Behavior is appropriate for age, kr3 cooperative. Pain: Location: chest Pain currently is 3 out of 10 on a pain scale. HIV screening NA for this visit Offered previously. The patient is triaged at the bedside. See Assessment in Nurses Notes section of ED record. Neurological: Level of Consciousness is awake, alert. Cardiovascular: Rhythm is sinus rhythm No ectopy. Respiratory: Respiratory effort is even, unlabored, Denies shortness of breath. GI: Denies nausea. Derm: Skin is normal. Historical: - Allergies: PENICILLINS; - Home Meds: 1. Xarelto 20 mg oral tab once daily (Last dose: 04/22/2016) - PMHx: Sleep Apnea w/o CPAP; Atrial Fib; - PSHx: none; - Social history: Smoking status: Patient states was never smoker of tobacco. No barriers to communication noted, The patient speaks fluent Namibian, Speaks appropriately for age. - Family history: Not pertinent. - : The pt / caregiver states he / she is on anticoagulants: Xarelto Home medication list is obtained from the patient. - Exposure Risk Screening:: None identified. Screenin:47 Screening information is obtained from the patient. Fall risk: No risks identified. pml Assistance ADL's: requires no assistance with activities of daily living. Abuse/DV Screen: The patient / caregiver reports he/she is: not in a situation that causes fear, pain or injury. Nutritional screening: No deficits noted. Advance Directives: Currently, there is no health care proxy. home support is adequate. Assessment: 17:47 General: Appears in no apparent distress, comfortable, Behavior is appropriate for age, pml cooperative. Pain: Location: chest Pain currently is 4 out of 10 on a pain scale. Neurological: Level of Consciousness is awake, alert, Oriented to person, place, time. Cardiovascular: Capillary refill < 3 seconds Rhythm is sinus rhythm No ectopy. Respiratory: Airway is patent Respiratory effort is even, unlabored. GI: Abdomen is non- distended. Derm: Skin is pink, warm & dry. 18:39 General: resting quietly on stretcher, resps easy and unlabored, skin p/w/d. sinus pml rhythm on monitor. . 19:17 General: Appears in no apparent distress, comfortable, Behavior is appropriate for age, ko2 cooperative. Pain: Location: chest Pain currently is 2 out of 10 on a pain scale. Neurological: Level of Consciousness is awake, alert. Cardiovascular: Capillary refill < 3 seconds Heart tones S1 S2 present Rhythm is sinus bradycardia No ectopy. Respiratory: Airway is patent Respiratory effort is even, unlabored. GI: Abdomen is non- distended. Derm: Skin is pink, warm & dry. Vital Signs: 17:32 BP 154 / 76; Pulse 67; Resp 18 S; Temp 96.1(O); Pulse Ox 98% on R/A; Weight 97.52 kg gr2 (R); Height 71 in. (180.34 cm) (R); Pain 2/10; 17:43 BP 137 / 70 (auto/); ko2 17:44 Pulse 70 MON; Pulse Ox 98% ; ko2 17:58 BP 126 / 74 (auto/); ko2 17:58 Pulse 58 MON; Pulse Ox 99% ; ko2 18:13 BP 135 / 70 (auto/); ko2 18:13 Pulse 56 MON; Pulse Ox 95% ; ko2 18:28 BP 118 / 64 (auto/); ko2 18:28 Pulse 58 MON; Pulse Ox 95% ; ko2 18:42 Pulse 62 MON; Pulse Ox 94% ; ko2 18:43 BP 118 / 58 (auto/); ko2 18:58 BP 119 / 65 (auto/); ko2 18:58 Pulse 54 MON; Pulse Ox 94% ; ko2 19:24 BP 126 / 77; Pulse 61; Resp 18; Temp 98.3(TE); Pulse Ox 96% on R/A; emerson 19:31 BP 118 / 76; Pulse 54; Resp 16; Temp 98; Pulse Ox 100% ; Pain 1/10; ko2 17:32 Body Mass Index 29.99 (97.52 kg, 180.34 cm) gr2 Vitals: 17:32 Log In Time: April 22, 2016 at 17:32. RN notified that patient meets Red Flag gr2 criteria. ED Course: 17:31 Patient visited by Omar Stafford. gr2 17:31 Patient moved to Waiting gr2 17:32 Other - Complete Info On Cds is Private Physician. gr2 17:34 Patient visited by Omar Stafford. gr2 17:35 Ashtyn Cantu,RN is Primary Nurse. kr3 17:35 Patient moved to 8 kr3 17:40 Triage Initiated kr3 17:45 Patient visited by Mariya Zapata. sew 17:45 EKG done. (by ED staff). Reviewed by Mariya Fairchild MD. sew 17:46 Patient visited by Mariya Zapata. sew 17:47 The patient / caregiver is instructed regarding the plan of care and ED course. Patient pml has correct armband on for positive identification. Placed in gown. Bed in low position. Call light in reach. Side rails up X2. abstract writer on. Pulse ox on. NIBP on. 17:47 Inserted peripheral IV: 18gauge IV in right antecubital area and blood collected. pml Patient tolerated the procedure well. 17:50 Patient visited by Ashtyn Cantu RN. pml 18:18 [facility]ando [facility]. ke 18:18 Patient visited by Jefferson Villalpando FNP. ke 18:18 Patient visited by Jefferson Villalpando FNP. ke 18:40 Patient visited by Ashtyn Cantu RN. pml 19:05 Patient moved to Radiology christina 19:17 Patient visited by Brianna Newby RN. ko2 19:19 Ortiz Dave is Referral Physician. ke 19:24 Patient visited by Laura Beckman PCA. emerson 19:27 Patient moved to 8 christina 19:31 Discontinued lock intact, bleeding controlled, pressure dressing applied, No ko2 redness/swelling at site. No procedures done that require assistance. Order Results: Lab Order: B-Type Natiuretic Peptide; SPEC'M 04/22/16 17:45 Test: BRAIN NATRIURETIC PEPTIDE; Value: 11.4; Range: <100; Units: PG/ML; Status: F Lab Order: Basic Metabolic Profile; SPEC'M 04/22/16 17:45 Test: GLUCOSE, FASTING; Value: 104; Range: 70-105; Units: MG/DL; Status: F Test: BLOOD UREA NITROGEN; Value: 18; Range: 7-18; Units: MG/DL; Status: F Test: CREATININE FOR GFR; Value: 1.30; Range: 0.70-1.30; Units: MG/DL; Status: F Test: GLOMERULAR FILTRATION RATE; Value: > 60.0; Range: >60; Status: F Test: SODIUM LEVEL; Value: 144; Range: 136-145; Units: MEQ/L; Status: F Test: POTASSIUM SERUM; Value: 3.7; Range: 3.5-5.1; Units: MEQ/L; Status: F Test: CHLORIDE LEVEL; Value: 107; Range: 98-107; Units: MEQ/L; Status: F Test: CARBON DIOXIDE LEVEL; Value: 27; Range: 21-32; Units: MEQ/L; Status: F Test: ANION GAP; Value: 10; Range: 8-16; Units: MEQ/L; Status: F Test: CALCIUM LEVEL; Value: 9.1; Range: 8.5-10.1; Units: MG/DL; Status: F Test Note: ; Units are mL/min/1.73 m2 Chronic Kidney Disease Staging per NKF: Stage I & II GFR >=60 Normal to Mildly Decreased Stage III GFR 30-59 Moderately Decreased Stage IV GFR 15-29 Severely Decreased Stage V GFR <15 Very Little GFR Left ESRD GFR <15 on BALLOON ARTIST Lab Order: CBC with Diff; SPEC'M 04/22/16 17:45 Test: WHITE BLOOD COUNT; Value: 7.4; Range: 4.0-10.0; Units: K/mm3; Status: F Test: RED BLOOD COUNT; Value: 5.46; Range: 4.30-6.10; Units: M/mm3; Status: F Test: HEMOGLOBIN; Value: 15.9; Range: 14.0-18.0; Units: g/dl; Status: F Test: HEMATOCRIT; Value: 46.5; Range: 42.0-52.0; Units: %; Status: F Test: MEAN CORPUSCULAR VOLUME; Value: 85.2; Range: 80.0-96.0; Units: fl; Status: F Test: MEAN CORPUSCULAR HEMOGLOBIN; Value: 29.1; Range: 27.0-33.0; Units: pg; Status: F Test: MEAN CORPUSCULAR HGB CONC; Value: 34.2; Range: 32.0-36.5; Units: g/dl; Status: F Test: RED CELL DISTRIBUTION WIDTH; Value: 12.7; Range: 11.5-14.5; Units: %; Status: F Test: PLATELET COUNT, AUTOMATED; Value: 196; Range: 150-450; Units: k/mm3; Status: F Test: NEUTROPHILS %; Value: 55.7; Range: 36.0-66.0; Units: %; Status: F Test: LYMPH %; Value: 31.9; Range: 24.0-44.0; Units: %; Status: F Test: MONO %; Value: 5.6; Range: 0.0-5.0; Abnormal: Above high normal; Units: %; Status: F Test: EOS %; Value: 3.8; Range: 0.0-3.0; Abnormal: Above high normal; Units: %; Status: F Test: BASO %; Value: 0.9; Range: 0.0-1.0; Units: %; Status: F Test: LARGE UNSTAINED CELL %; Value: 2.1; Range: 0.0-4.0; Units: %; Status: F Test: NEUTROPHILS #; Value: 4.1; Range: 1.8-7.7; Units: K/mm3; Status: F Test: LYMPH #; Value: 2.5; Range: 1.5-4.5; Units: K/mm3; Status: F Test: MONO #; Value: 0.4; Range: 0.0-0.8; Units: K/mm3; Status: F Test: EOS #; Value: 0.3; Range: 0.0-0.50; Units: K/mm3; Status: F Test: BASO #; Value: 0.1; Range: 0.0-0.2; Units: K/mm3; Status: F Test: LARGE UNSTAINED CELL #; Value: 0.2; Range: 0.0-0.4; Units: K/mm3; Status: F Lab Order: Cardiac Injury Profile; [facility] 04/22/16 17:45 Test: CPK CREATINE PHOSPHOKINASE; Value: 160; Range: 39-308; Units: U/L; Status: F Test: CK-MB VALUE MASS; Value: 1.0; Range: 0.0-3.6; Units: NG/ML; Status: F Test: MB/CK RELATIVE INDEX; Value: 0.62; Range: < OR =4; Status: F Test Note: ; DIAGNOSIS CRITERIA MMB ng/ml Relative Index (RI) NON-AMI < or = 5 N/A GARCIA ZONE > 5 < or = 4 AMI > 5 > 4 Lab Order: Prothrombin Time Profile\E\INR; [facility] 04/22/16 17:45 Test: PROTHROMBIN TIME; Value: 13.9; Range: 12.3-14.5; Units: SECONDS; Status: F Test: INR; Value: 1.06; Status: F Test Note: ; THERAPUTIC HUMAN INR VALUES INDICATIONS NORMAL RANGES PROPHYLAXIS/TREATMENT OF: VENOUS THROMBOSIS 2.0-3.0 PULMONARY EMBOLISM 2.0-3.0 PREVENTION OF SYSTEMIC EMBOLISM FROM: TISSUE HEART VALVES 2.0-3.0 ACUTE MYOCARDIAL INFARCTION 2.0-3.0 VALVULAR HEART DISEASE 2.0-3.0 ATRIAL FIBRILLATION 2.0-3.0 MECHANICAL VALVES(HIGH RISK) 2.5-3.5 RECURRENT MYOCARDIAL INFARCTION 2.5-3.5 Lab Order: Troponin; [facility] 04/22/16 17:45 Test: TROPONIN I; Value: < 0.02; Range: < 0.10; Units: NG/ML; Status: F Test Note: ; Troponin I Reference Interval for Siemens AirCell LOCI: 99th Percentile= 0.00-0.045 ng/ml Risk Stratification: <= 0.10 ng/ml Decreased Risk for Adverse Clinical Events. 0.10-1.50 ng/ml Increased Risk for Adverse Clinical Events. Evaluation of additional criterion and/or repeat testing in 2-6 hours is suggested to rule out myocardial damage. >= 1.50 ng/ml Indicative of Myocardial Injury. Lab Order: Magnesium Level; SPEC'M 04/22/16 17:45 Test: MAGNESIUM LEVEL; Value: 2.1; Range: 1.8-2.4; Units: MG/DL; Status: F Lab Order: Thyroid Profile; SPEC'M 04/22/16 17:45 Test: T UPTAKE; Value: 36; Range: 33-40; Units: %; Status: F Test: THYROXINE (T4); Value: 9.1; Range: 4.5-12.0; Units: UG/DL; Status: F Test: FREE THYROXINE INDEX; Value: 3.3; Range: 1.4-3.8; Units: %; Status: F Test: THYROID STIMULATING HORMONE; Value: 2.780; Range: 0.358-3.740; Units: uIU/ML; Status: F Outcome: 19:20 Discharge ordered by Provider. ke 19:32 Discharge Assessment: Patient awake, alert and oriented x 3. No cognitive and/or ko2 functional deficits noted. Patient verbalized understanding of disposition instructions. patient administered narcotics - no. The following High Risk Discharge criteria are identified: None. Discharged to home ambulatory, with significant other. Condition: stable. Discharge instructions given to patient, Instructed on discharge instructions, follow up and referral plans. Demonstrated understanding of instructions, Pt was receptive of discharge instructions/ teaching. No special radiology studies were completed. Property sent home with patient. 19:32 Patient left the ED. ko2 Signatures: Jose Arellano Karl, LEAD VULCANIZING OPERATOR LEAD VULCANIZING OPERATOR Radha Lou RN RN kr3 Laura Beckman, SCHOOL SOCIAL WORKER Ashtyn RenteriaRN RN Mariya Guy Gainslee gr2 Brianna Newby RN RN ko2 Corrections: (The following items were deleted from the chart) 17:46 17:45 EKG done. (by ED staff). orquidea heard MTDD
--- NOTE | 2016-04-22 19:33 | EDDOCDS ---
Physician Documentation [facility] Name: Eliecer Issa Age: 35 yrs Sex: Male : 1980 Arrival Date: 04/22/2016 Time: 17:30 Bed 8 Private MD: Other - Complete Info On Cds Disposition: 04/22/16 19:20 Discharged to Home/Self Care. Impression: Cardiac arrhythmia, unspecified - atrialfibrilation with rapid response. - Condition is Stable. - Discharge Instructions: Atrial Fibrillation, Palpitations. - Medication Reconciliation, Local Pharmacy Hours form. - Follow up: Ortiz Dave; When: Call to arrange an appointment; Reason: Recheck today's complaints, Continuance of care. - Problem is an acute exacerbation. - Symptoms have improved. Historical: - Allergies: PENICILLINS; - Home Meds: 1. Xarelto 20 mg oral tab once daily (Last dose: 04/22/2016) - PMHx: Sleep Apnea w/o CPAP; Atrial Fib; - PSHx: none; - Social history: Smoking status: Patient states was never smoker of tobacco. No barriers to communication noted, The patient speaks fluent Kazakh, Speaks appropriately for age. - Family history: Not pertinent. - : The pt / caregiver states he / she is on anticoagulants: Xarelto Home medication list is obtained from the patient. - Exposure Risk Screening:: None identified. Vital Signs: 04/22 17:32 BP 154 / 76; Pulse 67; Resp 18 S; Temp 96.1(O); Pulse Ox 98% on R/A; Weight 97.52 kg / gr2 214.99 lbs (R); Height 71 in. (180.34 cm) (R); Pain 2/10; 17:43 BP 137 / 70 (auto/); ko2 17:44 Pulse 70 MON; Pulse Ox 98% ; ko2 17:58 BP 126 / 74 (auto/); ko2 17:58 Pulse 58 MON; Pulse Ox 99% ; ko2 18:13 BP 135 / 70 (auto/); ko2 18:13 Pulse 56 MON; Pulse Ox 95% ; ko2 18:28 BP 118 / 64 (auto/); ko2 18:28 Pulse 58 MON; Pulse Ox 95% ; ko2 18:42 Pulse 62 MON; Pulse Ox 94% ; ko2 18:43 BP 118 / 58 (auto/); ko2 18:58 BP 119 / 65 (auto/); ko2 18:58 Pulse 54 MON; Pulse Ox 94% ; ko2 19:24 BP 126 / 77; Pulse 61; Resp 18; Temp 98.3(TE); Pulse Ox 96% on R/A; emerson 19:31 BP 118 / 76; Pulse 54; Resp 16; Temp 98; Pulse Ox 100% ; Pain 1/10; ko2 17:32 Body Mass Index 29.99 (97.52 kg, 180.34 cm) gr2 MDM: 17:36 ECG WITH READING ER PHYS+CARDIAG ordered. EDMS 18:43 Career Technical Education Instructor/Pulse Ox/q 30 min VS ordered. ke 18:43 IV Saline Lock ordered. ke 18:43 Rhythm Strip to chart ordered. ke 18:43 Undress patient appropriately for examination ordered. ke 18:44 B-Type Natiuretic Peptide Ordered. EDMS 18:44 Basic Metabolic Profile Ordered. EDMS 18:44 CBC with Diff Ordered. EDMS 18:44 Cardiac Injury Profile Ordered. EDMS 18:44 Prothrombin Time Profile\E\INR Ordered. EDMS 18:44 Troponin Ordered. EDMS 18:44 Magnesium Level Ordered. EDMS 18:44 Thyroid Profile Ordered. EDMS 18:44 Chest, 2 View (pa\E\lat) Ordered. EDMS 19:13 CBC with Diff Reviewed. ke 19:13 B-Type Natiuretic Peptide Reviewed. ke 19:13 Basic Metabolic Profile Reviewed. ke 19:13 Cardiac Injury Profile Reviewed. ke 19:13 Prothrombin Time Profile\E\INR Reviewed. ke 19:13 Troponin Reviewed. ke 19:13 Magnesium Level Reviewed. ke 19:13 Thyroid Profile Reviewed. ke Signatures: Dispatcher [employer] EDMS Jefferson Villalpando, PROPRIETARY TRADER PROPRIETARY TRADER Radha Lou,NELLIE RN curt3 Ashtyn Cantu RN RN pml Ogden, Kari, RN RN ko2 MTDD
--- NOTE | 2016-04-23 02:30 | REP ---
Clinical: Acute chest pain . Comparison: 03/24/2016 . Technique: PA and lateral. Findings: The mediastinum and cardiac silhouette are normal. The lung lora are clear and without acute consolidation, effusion, or pneumothorax. The skeletal structures are intact and normal. Impression: 1. No acute cardiopulmonary process. Signed by Alphonso Torres MD 04/23/2016 02:22 A
--- NOTE | 2016-04-23 07:09 | ECGEPIP ---
Stationary ECG Study [facility] - ED Test Date: 2016-04-22 Pat Name: CANI PIERRE Department: Room: - Gender: M Target Aircraft Technician: orquidea : 1980 Requested By: Mariya Fairchild Order Number: [id number] Reading MD: Chilango Curtis Measurements Intervals [place] Rate: 64 P: 64 [place]: 175 QRS: 56 QRSD: 101 T: 31 QT: 372 QTc: 386 Interpretive Statements SINUS RHYTHM POSSIBLE PRIOR INFERIOR INFARCT SIMILAR TO 03/25/16 Electronically Signed On 04-23-2016 7:09:01 EST by Chilango Curtis
--- NOTE | 2016-04-24 20:33 | EDDOCDS ---
Physician Documentation [facility] Name: Eliecer Issa Age: 35 yrs Sex: Male : 1980 Arrival Date: 04/22/2016 Time: 17:30 Bed 8 Private MD: Other - Complete Info On Cds Disposition: 04/22/16 19:20 Discharged to Home/Self Care. Impression: Cardiac arrhythmia, unspecified - atrialfibrilation with rapid response. - Condition is Stable. - Discharge Instructions: Atrial Fibrillation, Palpitations. - Medication Reconciliation, Local Pharmacy Hours form. - Follow up: Ortiz Dave; When: Call to arrange an appointment; Reason: Recheck today's complaints, Continuance of care. - Problem is an acute exacerbation. - Symptoms have improved. Historical: - Allergies: PENICILLINS; - Home Meds: 1. Xarelto 20 mg oral tab once daily (Last dose: 04/22/2016) - PMHx: Sleep Apnea w/o CPAP; Atrial Fib; - PSHx: none; - Social history: Smoking status: Patient states was never smoker of tobacco. No barriers to communication noted, The patient speaks fluent Kiswahili, Speaks appropriately for age. - Family history: Not pertinent. - : The pt / caregiver states he / she is on anticoagulants: Xarelto Home medication list is obtained from the patient. - Exposure Risk Screening:: None identified. Vital Signs: 04/22 17:32 BP 154 / 76; Pulse 67; Resp 18 S; Temp 96.1(O); Pulse Ox 98% on R/A; Weight 97.52 kg / gr2 214.99 lbs (R); Height 71 in. (180.34 cm) (R); Pain 2/10; 17:43 BP 137 / 70 (auto/); ko2 17:44 Pulse 70 MON; Pulse Ox 98% ; ko2 17:58 BP 126 / 74 (auto/); ko2 17:58 Pulse 58 MON; Pulse Ox 99% ; ko2 18:13 BP 135 / 70 (auto/); ko2 18:13 Pulse 56 MON; Pulse Ox 95% ; ko2 18:28 BP 118 / 64 (auto/); ko2 18:28 Pulse 58 MON; Pulse Ox 95% ; ko2 18:42 Pulse 62 MON; Pulse Ox 94% ; ko2 18:43 BP 118 / 58 (auto/); ko2 18:58 BP 119 / 65 (auto/); ko2 18:58 Pulse 54 MON; Pulse Ox 94% ; ko2 19:24 BP 126 / 77; Pulse 61; Resp 18; Temp 98.3(TE); Pulse Ox 96% on R/A; emerson 19:31 BP 118 / 76; Pulse 54; Resp 16; Temp 98; Pulse Ox 100% ; Pain 1/10; ko2 17:32 Body Mass Index 29.99 (97.52 kg, 180.34 cm) gr2 MDM: 17:36 ECG WITH READING ER PHYS+CARDIAG ordered. EDMS 18:43 Insurance Investigator/Pulse Ox/q 30 min VS ordered. ke 18:43 IV Saline Lock ordered. ke 18:43 Rhythm Strip to chart ordered. ke 18:43 Undress patient appropriately for examination ordered. ke 18:44 B-Type Natiuretic Peptide Ordered. EDMS 18:44 Basic Metabolic Profile Ordered. EDMS 18:44 CBC with Diff Ordered. EDMS 18:44 Cardiac Injury Profile Ordered. EDMS 18:44 Prothrombin Time Profile\E\INR Ordered. EDMS 18:44 Troponin Ordered. EDMS 18:44 Magnesium Level Ordered. EDMS 18:44 Thyroid Profile Ordered. EDMS 18:44 Chest, 2 View (pa\E\lat) Ordered. EDMS 19:13 CBC with Diff Reviewed. ke 19:13 B-Type Natiuretic Peptide Reviewed. ke 19:13 Basic Metabolic Profile Reviewed. ke 19:13 Cardiac Injury Profile Reviewed. ke 19:13 Prothrombin Time Profile\E\INR Reviewed. ke 19:13 Troponin Reviewed. ke 19:13 Magnesium Level Reviewed. ke 19:13 Thyroid Profile Reviewed. ke 04/23 09:39 T-Sheet-- Draft Copy was scanned into [employer] and attached to record. gb 09:39 ECG/EKG was scanned into [employer] and attached to record. gb Signatures: Dispatcher [employer] EDMS Delilah Rees, Reg Reg Jefferson Simpson, HUMAN RESOURCES MGR HUMAN RESOURCES MGR Radha Lou RN RN kr3 Ashtyn Cantu RN RN Brianna Gan RN RN ko2 The chart was reviewed and I authenticate all verbal orders and agree with the evaluation and treatment provided.Attachments: 09:39 T-Sheet-- Draft Copy gb 09:39 ECG/EKG gb Chart Complete MTDD
--- NOTE | 2016-04-24 20:33 | EDDOCDS ---
Physician Documentation [facility] Name: Eliecer Issa Age: 35 yrs Sex: Male : 1980 Arrival Date: 04/22/2016 Time: 17:30 Bed 8 Private MD: Other - Complete Info On Cds Disposition: 04/22/16 19:20 Discharged to Home/Self Care. Impression: Cardiac arrhythmia, unspecified - atrialfibrilation with rapid response. - Condition is Stable. - Discharge Instructions: Atrial Fibrillation, Palpitations. - Medication Reconciliation, Local Pharmacy Hours form. - Follow up: Ortiz Dave; When: Call to arrange an appointment; Reason: Recheck today's complaints, Continuance of care. - Problem is an acute exacerbation. - Symptoms have improved. Historical: - Allergies: PENICILLINS; - Home Meds: 1. Xarelto 20 mg oral tab once daily (Last dose: 04/22/2016) - PMHx: Sleep Apnea w/o CPAP; Atrial Fib; - PSHx: none; - Social history: Smoking status: Patient states was never smoker of tobacco. No barriers to communication noted, The patient speaks fluent Mohawk, Speaks appropriately for age. - Family history: Not pertinent. - : The pt / caregiver states he / she is on anticoagulants: Xarelto Home medication list is obtained from the patient. - Exposure Risk Screening:: None identified. Vital Signs: 04/22 17:32 BP 154 / 76; Pulse 67; Resp 18 S; Temp 96.1(O); Pulse Ox 98% on R/A; Weight 97.52 kg / gr2 214.99 lbs (R); Height 71 in. (180.34 cm) (R); Pain 2/10; 17:43 BP 137 / 70 (auto/); ko2 17:44 Pulse 70 MON; Pulse Ox 98% ; ko2 17:58 BP 126 / 74 (auto/); ko2 17:58 Pulse 58 MON; Pulse Ox 99% ; ko2 18:13 BP 135 / 70 (auto/); ko2 18:13 Pulse 56 MON; Pulse Ox 95% ; ko2 18:28 BP 118 / 64 (auto/); ko2 18:28 Pulse 58 MON; Pulse Ox 95% ; ko2 18:42 Pulse 62 MON; Pulse Ox 94% ; ko2 18:43 BP 118 / 58 (auto/); ko2 18:58 BP 119 / 65 (auto/); ko2 18:58 Pulse 54 MON; Pulse Ox 94% ; ko2 19:24 BP 126 / 77; Pulse 61; Resp 18; Temp 98.3(TE); Pulse Ox 96% on R/A; emerson 19:31 BP 118 / 76; Pulse 54; Resp 16; Temp 98; Pulse Ox 100% ; Pain 1/10; ko2 17:32 Body Mass Index 29.99 (97.52 kg, 180.34 cm) gr2 MDM: 17:36 ECG WITH READING ER PHYS+CARDIAG ordered. EDMS 18:43 Engine Emission Technician/Pulse Ox/q 30 min VS ordered. ke 18:43 IV Saline Lock ordered. ke 18:43 Rhythm Strip to chart ordered. ke 18:43 Undress patient appropriately for examination ordered. ke 18:44 B-Type Natiuretic Peptide Ordered. EDMS 18:44 Basic Metabolic Profile Ordered. EDMS 18:44 CBC with Diff Ordered. EDMS 18:44 Cardiac Injury Profile Ordered. EDMS 18:44 Prothrombin Time Profile\E\INR Ordered. EDMS 18:44 Troponin Ordered. EDMS 18:44 Magnesium Level Ordered. EDMS 18:44 Thyroid Profile Ordered. EDMS 18:44 Chest, 2 View (pa\E\lat) Ordered. EDMS 19:13 CBC with Diff Reviewed. ke 19:13 B-Type Natiuretic Peptide Reviewed. ke 19:13 Basic Metabolic Profile Reviewed. ke 19:13 Cardiac Injury Profile Reviewed. ke 19:13 Prothrombin Time Profile\E\INR Reviewed. ke 19:13 Troponin Reviewed. ke 19:13 Magnesium Level Reviewed. ke 19:13 Thyroid Profile Reviewed. ke 04/23 09:39 T-Sheet-- Draft Copy was scanned into [employer] and attached to record. gb 09:39 ECG/EKG was scanned into [employer] and attached to record. gb Signatures: Dispatcher [employer] EDMS Delilah Rees, Reg Reg Jefferson Simpson, HEARING AID MECHANIC HEARING AID MECHANIC Radha Lou RN RN kr3 Ashtyn Cantu RN RN Brianna Gan RN RN ko2 The chart was reviewed and I authenticate all verbal orders and agree with the evaluation and treatment provided.Attachments: 09:39 T-Sheet-- Draft Copy gb 09:39 ECG/EKG gb Chart Complete MTDD
--- NOTE | 2016-04-24 20:34 | EDDOCDS ---
Nurse's Notes [facility] Name: Eliecer Issa Age: 35 yrs Sex: Male : 1980 Arrival Date: 04/22/2016 Time: 17:30 Bed 8 Private MD: Other - Complete Info On Cds Diagnosis: Cardiac arrhythmia, unspecified-atrialfibrilation with rapid response Presentation: 04/22 17:39 Presenting complaint: Patient states: had irregular heart beat for last 2 1/2 hours. kr3 reports upon arrival to ED felt heart beat go back to normal. Adult Sepsis Screening: The patient does not have new or worsening altered mentation. Patient's respiratory rate is less than 22. Systolic blood pressure is greater than 100. Patient has a qSOFA score of 0- Negative Sepsis Screen. Suicide/Homicide risk assessment- the patient denies having any suicidal and/or homicidal ideations and does not present with any other emotional, behavioral or mental health complaints. 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 Transition of care: patient was not received from another setting of care. 17:39 Method Of Arrival: Walkin/Carried/Asstd kr3 17:39 Acuity: FARIDA Level 2 kr3 Triage Assessment: 17:41 General: Appears in no apparent distress, comfortable, Behavior is appropriate for age, kr3 cooperative. Pain: Location: chest Pain currently is 3 out of 10 on a pain scale. HIV screening NA for this visit Offered previously. The patient is triaged at the bedside. See Assessment in Nurses Notes section of ED record. Neurological: Level of Consciousness is awake, alert. Cardiovascular: Rhythm is sinus rhythm No ectopy. Respiratory: Respiratory effort is even, unlabored, Denies shortness of breath. GI: Denies nausea. Derm: Skin is normal. Historical: - Allergies: PENICILLINS; - Home Meds: 1. Xarelto 20 mg oral tab once daily (Last dose: 04/22/2016) - PMHx: Sleep Apnea w/o CPAP; Atrial Fib; - PSHx: none; - Social history: Smoking status: Patient states was never smoker of tobacco. No barriers to communication noted, The patient speaks fluent [place], Speaks appropriately for age. - Family history: Not pertinent. - : The pt / caregiver states he / she is on anticoagulants: Xarelto Home medication list is obtained from the patient. - Exposure Risk Screening:: None identified. Screenin:47 Screening information is obtained from the patient. Fall risk: No risks identified. pml Assistance ADL's: requires no assistance with activities of daily living. Abuse/DV Screen: The patient / caregiver reports he/she is: not in a situation that causes fear, pain or injury. Nutritional screening: No deficits noted. Advance Directives: Currently, there is no health care proxy. home support is adequate. Assessment: 17:47 General: Appears in no apparent distress, comfortable, Behavior is appropriate for age, pml cooperative. Pain: Location: chest Pain currently is 4 out of 10 on a pain scale. Neurological: Level of Consciousness is awake, alert, Oriented to person, place, time. Cardiovascular: Capillary refill < 3 seconds Rhythm is sinus rhythm No ectopy. Respiratory: Airway is patent Respiratory effort is even, unlabored. GI: Abdomen is non- distended. Derm: Skin is pink, warm & dry. 18:39 General: resting quietly on stretcher, resps easy and unlabored, skin p/w/d. sinus pml rhythm on monitor. . 19:17 General: Appears in no apparent distress, comfortable, Behavior is appropriate for age, ko2 cooperative. Pain: Location: chest Pain currently is 2 out of 10 on a pain scale. Neurological: Level of Consciousness is awake, alert. Cardiovascular: Capillary refill < 3 seconds Heart tones S1 S2 present Rhythm is sinus bradycardia No ectopy. Respiratory: Airway is patent Respiratory effort is even, unlabored. GI: Abdomen is non- distended. Derm: Skin is pink, warm & dry. Vital Signs: 17:32 BP 154 / 76; Pulse 67; Resp 18 S; Temp 96.1(O); Pulse Ox 98% on R/A; Weight 97.52 kg gr2 (R); Height 71 in. (180.34 cm) (R); Pain 2/10; 17:43 BP 137 / 70 (auto/); ko2 17:44 Pulse 70 MON; Pulse Ox 98% ; ko2 17:58 BP 126 / 74 (auto/); ko2 17:58 Pulse 58 MON; Pulse Ox 99% ; ko2 18:13 BP 135 / 70 (auto/); ko2 18:13 Pulse 56 MON; Pulse Ox 95% ; ko2 18:28 BP 118 / 64 (auto/); ko2 18:28 Pulse 58 MON; Pulse Ox 95% ; ko2 18:42 Pulse 62 MON; Pulse Ox 94% ; ko2 18:43 BP 118 / 58 (auto/); ko2 18:58 BP 119 / 65 (auto/); ko2 18:58 Pulse 54 MON; Pulse Ox 94% ; ko2 19:24 BP 126 / 77; Pulse 61; Resp 18; Temp 98.3(TE); Pulse Ox 96% on R/A; emerson 19:31 BP 118 / 76; Pulse 54; Resp 16; Temp 98; Pulse Ox 100% ; Pain 1/10; ko2 17:32 Body Mass Index 29.99 (97.52 kg, 180.34 cm) gr2 Vitals: 17:32 Log In Time: April 22, 2016 at 17:32. RN notified that patient meets Red Flag gr2 criteria. ED Course: 17:31 Patient visited by Omar Stafford. gr2 17:31 Patient moved to Waiting gr2 17:32 Other - Complete Info On Cds is Private Physician. gr2 17:34 Patient visited by Omar Stafford. gr2 17:35 Ashtyn Cantu,RN is Primary Nurse. kr3 17:35 Patient moved to 8 kr3 17:40 Triage Initiated kr3 17:45 Patient visited by Mariya Zapata. sew 17:45 EKG done. (by ED staff). Reviewed by Mariya Fairchild MD. sew 17:46 Patient visited by Mariya Zapata. sew 17:47 The patient / caregiver is instructed regarding the plan of care and ED course. Patient pml has correct armband on for positive identification. Placed in gown. Bed in low position. Call light in reach. Side rails up X2. photography coordinator on. Pulse ox on. NIBP on. 17:47 Inserted peripheral IV: 18gauge IV in right antecubital area and blood collected. pml Patient tolerated the procedure well. 17:50 Patient visited by Ashtyn Cantu RN. pml 18:18 Jefferson [facility]alpando [facility]NP [facility] ke 18:18 Patient visited by Jefferson Villalpando FNP. ke 18:18 Patient visited by Jefferson Villalpando FNP. ke 18:40 Patient visited by Ashtyn Cantu RN. pml 19:05 Patient moved to Radiology christina 19:17 Patient visited by Brianna Newby RN. ko2 19:19 Ortiz Dave is Referral Physician. ke 19:24 Patient visited by Laura Beckman PCA. emerson 19:27 Patient moved to 8 christina 19:31 Discontinued lock intact, bleeding controlled, pressure dressing applied, No ko2 redness/swelling at site. No procedures done that require assistance. 04/23 02:54 Chest, 2 View (pa\E\lat) Returned. EDMS 07:15 EKG-ADULT Returned. EDMS 09:39 T-Sheet-- Draft Copy was scanned into [employer] and attached to record. gb 09:39 ECG/EKG was scanned into [employer] and attached to record. gb Order Results: Lab Order: B-Type Natiuretic Peptide; SPEC'M 04/22/16 17:45 Test: BRAIN NATRIURETIC PEPTIDE; Value: 11.4; Range: <100; Units: PG/ML; Status: F Lab Order: Basic Metabolic Profile; SPEC'M 04/22/16 17:45 Test: GLUCOSE, FASTING; Value: 104; Range: 70-105; Units: MG/DL; Status: F Test: BLOOD UREA NITROGEN; Value: 18; Range: 7-18; Units: MG/DL; Status: F Test: CREATININE FOR GFR; Value: 1.30; Range: 0.70-1.30; Units: MG/DL; Status: F Test: GLOMERULAR FILTRATION RATE; Value: > 60.0; Range: >60; Status: F Test: SODIUM LEVEL; Value: 144; Range: 136-145; Units: MEQ/L; Status: F Test: POTASSIUM SERUM; Value: 3.7; Range: 3.5-5.1; Units: MEQ/L; Status: F Test: CHLORIDE LEVEL; Value: 107; Range: 98-107; Units: MEQ/L; Status: F Test: CARBON DIOXIDE LEVEL; Value: 27; Range: 21-32; Units: MEQ/L; Status: F Test: ANION GAP; Value: 10; Range: 8-16; Units: MEQ/L; Status: F Test: CALCIUM LEVEL; Value: 9.1; Range: 8.5-10.1; Units: MG/DL; Status: F Test Note: ; Units are mL/min/1.73 m2 Chronic Kidney Disease Staging per NKF: Stage I & II GFR >=60 Normal to Mildly Decreased Stage III GFR 30-59 Moderately Decreased Stage IV GFR 15-29 Severely Decreased Stage V GFR <15 Very Little GFR Left ESRD GFR <15 on PODIATRY PROFESSOR Lab Order: CBC with Diff; JAVIER 04/22/16 17:45 Test: WHITE BLOOD COUNT; Value: 7.4; Range: 4.0-10.0; Units: K/mm3; Status: F Test: RED BLOOD COUNT; Value: 5.46; Range: 4.30-6.10; Units: M/mm3; Status: F Test: HEMOGLOBIN; Value: 15.9; Range: 14.0-18.0; Units: g/dl; Status: F Test: HEMATOCRIT; Value: 46.5; Range: 42.0-52.0; Units: %; Status: F Test: MEAN CORPUSCULAR VOLUME; Value: 85.2; Range: 80.0-96.0; Units: fl; Status: F Test: MEAN CORPUSCULAR HEMOGLOBIN; Value: 29.1; Range: 27.0-33.0; Units: pg; Status: F Test: MEAN CORPUSCULAR HGB CONC; Value: 34.2; Range: 32.0-36.5; Units: g/dl; Status: F Test: RED CELL DISTRIBUTION WIDTH; Value: 12.7; Range: 11.5-14.5; Units: %; Status: F Test: PLATELET COUNT, AUTOMATED; Value: 196; Range: 150-450; Units: k/mm3; Status: F Test: NEUTROPHILS %; Value: 55.7; Range: 36.0-66.0; Units: %; Status: F Test: LYMPH %; Value: 31.9; Range: 24.0-44.0; Units: %; Status: F Test: MONO %; Value: 5.6; Range: 0.0-5.0; Abnormal: Above high normal; Units: %; Status: F Test: EOS %; Value: 3.8; Range: 0.0-3.0; Abnormal: Above high normal; Units: %; Status: F Test: BASO %; Value: 0.9; Range: 0.0-1.0; Units: %; Status: F Test: LARGE UNSTAINED CELL %; Value: 2.1; Range: 0.0-4.0; Units: %; Status: F Test: NEUTROPHILS #; Value: 4.1; Range: 1.8-7.7; Units: K/mm3; Status: F Test: LYMPH #; Value: 2.5; Range: 1.5-4.5; Units: K/mm3; Status: F Test: MONO #; Value: 0.4; Range: 0.0-0.8; Units: K/mm3; Status: F Test: EOS #; Value: 0.3; Range: 0.0-0.50; Units: K/mm3; Status: F Test: BASO #; Value: 0.1; Range: 0.0-0.2; Units: K/mm3; Status: F Test: LARGE UNSTAINED CELL #; Value: 0.2; Range: 0.0-0.4; Units: K/mm3; Status: F Lab Order: Cardiac Injury Profile; SPEC'M 04/22/16 17:45 Test: CPK CREATINE PHOSPHOKINASE; Value: 160; Range: 39-308; Units: U/L; Status: F Test: CK-MB VALUE MASS; Value: 1.0; Range: 0.0-3.6; Units: NG/ML; Status: F Test: MB/CK RELATIVE INDEX; Value: 0.62; Range: < OR =4; Status: F Test Note: ; DIAGNOSIS CRITERIA MMB ng/ml Relative Index (RI) NON-AMI < or = 5 N/A GARCIA ZONE > 5 < or = 4 AMI > 5 > 4 Lab Order: Prothrombin Time Profile\E\INR; SPEC'M 04/22/16 17:45 Test: PROTHROMBIN TIME; Value: 13.9; Range: 12.3-14.5; Units: SECONDS; Status: F Test: INR; Value: 1.06; Status: F Test Note: ; THERAPUTIC HUMAN INR VALUES INDICATIONS NORMAL RANGES PROPHYLAXIS/TREATMENT OF: VENOUS THROMBOSIS 2.0-3.0 PULMONARY EMBOLISM 2.0-3.0 PREVENTION OF SYSTEMIC EMBOLISM FROM: TISSUE HEART VALVES 2.0-3.0 ACUTE MYOCARDIAL INFARCTION 2.0-3.0 VALVULAR HEART DISEASE 2.0-3.0 ATRIAL FIBRILLATION 2.0-3.0 MECHANICAL VALVES(HIGH RISK) 2.5-3.5 RECURRENT MYOCARDIAL INFARCTION 2.5-3.5 Lab Order: Troponin; [facility] 04/22/16 17:45 Test: TROPONIN I; Value: < 0.02; Range: < 0.10; Units: NG/ML; Status: F Test Note: ; Troponin I Reference Interval for Siemens [place] LOCI: 99th Percentile= 0.00-0.045 ng/ml Risk Stratification: <= 0.10 ng/ml Decreased Risk for Adverse Clinical Events. 0.10-1.50 ng/ml Increased Risk for Adverse Clinical Events. Evaluation of additional criterion and/or repeat testing in 2-6 hours is suggested to rule out myocardial damage. >= 1.50 ng/ml Indicative of Myocardial Injury. Lab Order: Magnesium Level; [facility] 04/22/16 17:45 Test: MAGNESIUM LEVEL; Value: 2.1; Range: 1.8-2.4; Units: MG/DL; Status: F Lab Order: Thyroid Profile; [facility] 04/22/16 17:45 Test: T UPTAKE; Value: 36; Range: 33-40; Units: %; Status: F Test: THYROXINE (T4); Value: 9.1; Range: 4.5-12.0; Units: UG/DL; Status: F Test: FREE THYROXINE INDEX; Value: 3.3; Range: 1.4-3.8; Units: %; Status: F Test: THYROID STIMULATING HORMONE; Value: 2.780; Range: 0.358-3.740; Units: uIU/ML; Status: F Radiology Order: EKG-ADULT Test: EKG-ADULT REASON FOR EXAMINATION: Chest Pain; Stationary ECG Study; [facility] - ED; ; Test Date: 2016-04-22; Pat Name: ELIECER ISSA Department:; Room: -; Gender: M Anthropologist: orquidea; : 1980 Requested By: Mariya Fairchild; Order Number: [id number] Reading MD: Chilango Curtis; Measurements; Intervals [place]; Rate: 64 P: 64; [place]: 175 QRS: 56; QRSD: 101 T: 31; QT: 372; QTc: 386; Interpretive Statements; SINUS RHYTHM; POSSIBLE PRIOR INFERIOR INFARCT; SIMILAR TO 03/25/16; Electronically Signed On 04-23-2016 7:09:01 EST by Chilango Curtis; Radiology Order: Chest, 2 View (pa\E\lat) Test: Chest, 2 View (pa\E\lat) REASON FOR EXAMINATION: Chest Pain; Clinical: Acute chest pain .; ; Comparison: 03/24/2016 .; ; Technique: PA and lateral.; ; Findings:; The mediastinum and cardiac silhouette are normal. The lung lora are clear and; without acute consolidation, effusion, or pneumothorax. The skeletal structures; are intact and normal.; ; Impression:; 1. No acute cardiopulmonary process.; ; ; Signed by; Alphonso Torres MD 04/23/2016 02:22 A; Outcome: 04/22 19:20 Discharge ordered by Provider. 19:32 Discharge Assessment: Patient awake, alert and oriented x 3. No cognitive and/or ko2 functional deficits noted. Patient verbalized understanding of disposition instructions. patient administered narcotics - no. The following High Risk Discharge criteria are identified: None. Discharged to home ambulatory, with significant other. Condition: stable. Discharge instructions given to patient, Instructed on discharge instructions, follow up and referral plans. Demonstrated understanding of instructions, Pt was receptive of discharge instructions/ teaching. No special radiology studies were completed. Property sent home with patient. 19:32 Patient left the ED. ko2 Signatures: Dispatcher [employer] EDMS Jose Arellano Gloria, Reg Reg Jefferson Simpson, COMPUTER AIDED DESIGN TECHNICIAN COMPUTER AIDED DESIGN TECHNICIAN Radha LouRN RN curt3 Laura Beckman, MELANI LINE O SCRIBE OPERATOR Ashtyn Ohara RN RN pml Wallace, Sarah sew Raymond, [place] 2 Brianna Newby RN RN ko2 Corrections: (The following items were deleted from the chart) 17:46 17:45 EKG done. (by ED staff). orqiudea heard Chart Complete MTDD
== END 2016-04-22 19:32 | disposition home or self-care (01) ==
LOC: M ED 17:30
DX: I48.91 Unspecified atrial fibrillation (principal); G47.30 Sleep apnea, unspecified; Z79.01 Long term (current) use of anticoagulants; Z88.0 Allergy status to penicillin

== ENCOUNTER → 2016-05-09 | Outpatient (CLI) | payer OTHER | LOC: M SLEEP 19:49 | PROVIDERS: ATTEND Internal Medicine Pulmonary Disease | DX: G47.30 Sleep apnea, unspecified (principal) ==

== ENCOUNTER → 2016-05-25 | Day surgery (SDC) | payer OTHER ==
[~2016-05-25] VITALS: Ht 185.4 cm; Wt 99.8 kg
[~2016-05-25] MED LIST changes: +ASPI32ECTA PO; +LIDOCAINE 1% SDV INJ 30 ML VIAL As Ordered ONE; +LIDOCAINE 2% INJ 100 MG/5 ML SDV (FOR ANES.) As Ordered ONE; +LR 1,000 ML IV SCH; +MIDAZOLAM INJ 2 MG/2 ML VIAL (J2250) As Ordered ONE; +ONDANSETRON 4MG/2ML VIAL (J2405) As Ordered ONE; +PROPOFOL 200 MG/20 ML VIAL As Ordered ONE; +fentaNYL 100 MCG/2 ML INJECTION (J3010) As Ordered ONE
--- NOTE | 2016-05-25 14:59 | RO ---
DATE OF PROCEDURE: 05/25/2016 PREPROCEDURE DIAGNOSIS: Paroxysmal atrial fibrillation. POSTPROCEDURE DIAGNOSIS: Paroxysmal atrial fibrillation. FINDINGS: Paroxysmal atrial fibrillation. PROCEDURE PERFORMED: Implantation of an implantable loop recorder. SURGEON: Mina Talavera MD LINK TRAINER TEACHER: None. ANESTHESIA: Lidocaine 1% local/monitored anesthetic care. SPECIMENS: No specimens. ESTIMATED BLOOD LOSS: Less than 5 mL. No blood products replaced. DRAINS: No drains. COMPLICATIONS: No complications. PROCEDURE DESCRIPTION: The patient was prepped and draped over the sternum and left anterior chest. Lidocaine 1% was used for local anesthetic. An incision was made with a #15 blade approximately 8 mm in length in the left fourth interspace, approximately 1 inch lateral to the left parasternal border. A small amount of bleeding was controlled with application of a small amount of cautery. At this point in the procedure, the patient's right hand came loose from the restraints and his right hand entered into the sterile field. The patient was then redraped and reprepped. After the patient was prepped and draped again, the operation continued. The plastic insertion tool with loop recorder was placed into the incision and advanced in a 45 degree caudal-lateral direction and advanced into the subcutaneous fat. The insertion device was rotated 180 degrees. The loop recorder was then advanced into the subcutaneous fat by application of the plunger. The plunger was then removed and then the insertion tool was removed leaving the loop recorder in place. The device was tested and found to have R waves of 1.18 millivolts. A single #2-0 Vicryl stitch was used to approximate the deep layer. Next, a #4-0 Biosyn suture was placed at the level of the skin at both ends and used to approximate the skin with subcuticular application. Next, two layers of DERMABOND was applied and the free ends of the Biosyn suture were snipped at the level of the skin. The patient tolerated the procedure well without any immediate complications. The implantable loop recorder implanted was a [employer] [place] Reveal LINQ, model LNQ11 with serial number [id number]. cc: Ortiz Dave MD *Kwame Diaz, JONO-C
[2016-05-25 15:20] VITALS: BP 131/69
== END ==
LOC: M SDC 11:31
PROVIDERS: ATTEND Internal Medicine Cardiovascular Disease
DX: I48.0 Paroxysmal atrial fibrillation (principal); R00.2 Palpitations; G47.30 Sleep apnea, unspecified; Z79.899 Other long term (current) drug therapy; Z79.82 Long term (current) use of aspirin; Z88.0 Allergy status to penicillin
CPT/HCPCS: 33282; 99156; 99157; C1764; J0690; J2250; J2405; J3010

== ENCOUNTER → 2016-05-29 | Outpatient (CLI) | payer OTHER ==
[~2016-05-29] MED LIST changes: -LIDOCAINE 1% SDV INJ 30 ML VIAL As Ordered ONE; -LIDOCAINE 2% INJ 100 MG/5 ML SDV (FOR ANES.) As Ordered ONE; -LR 1,000 ML IV SCH; -MIDAZOLAM INJ 2 MG/2 ML VIAL (J2250) As Ordered ONE; -ONDANSETRON 4MG/2ML VIAL (J2405) As Ordered ONE; -PROPOFOL 200 MG/20 ML VIAL As Ordered ONE; -fentaNYL 100 MCG/2 ML INJECTION (J3010) As Ordered ONE
--- NOTE | 2016-06-02 00:05 | SLEEPCENT ---
DATE OF PROCEDURE: 05/29/2016 REFERRING PROVIDER: Dr. Guillermo INTERPRETATION: Nocturnal polysomnography was performed for the evaluation of pressure therapy in this patient with mild obstructive sleep apnea with an apnea-hypopnea index (AHI) of 7.4 and an respiratory disturbance index (RDI) of 11.9. A total of 5 hours and 58 minutes of data was reviewed for the entire titration with 373.5 minutes of sleep identified. Sleep latency was 27 minutes. Rapid eye movement (REM) latency was 71.5 minutes. All stages of sleep were observed. Sleep efficiency was 90.8%. EKG showed sinus bradycardia with an average heart rate of 52 beats per minute. No epileptiform discharge observed. The patient had been fit with a ResMed Quattro full face mask of large size, 5 cm of water pressure was applied to the circuit and the lights were dimmed. Continuous positive airway pressure (CPAP) begun at 5 cm of water pressure was taken to a high of 9 cm, though he appeared to do best on a pressure of 7 cm. On this pressure, his apnea-hypopnea index (AHI) was 0 and his respiratory arousal index (MARTELL) was 0.6. Oxygen saturation donato was 90%. Periodic limb movement index was 0.9. Supine REM sleep was seen on this pressure with a reasonably good waveform. IMPRESSION: 1. Obstructive sleep apnea (G47.33), mild, reasonably palliated on continuous positive airway pressure (CPAP) at 7 cm of water pressure. RECOMMENDATIONS: Recommend continuation of CPAP therapy at the above pressure via a large ResMed Quattro full face mask or a mask of his preference. Clinical correlation will be necessary to ensure eradication of symptoms. CHICO
== END ==
LOC: M SLEEP 19:47
PROVIDERS: ATTEND Internal Medicine Pulmonary Disease
DX: G47.33 Obstructive sleep apnea (adult) (pediatric) (principal)

== ENCOUNTER 2016-06-28 00:15 | Emergency (ER) | payer OTHER ==
[~2016-06-28] VITALS: Ht 177.8 cm; Wt 99.8 kg
[2016-06-28] MEDS ORDERED: FLEC1TAB PO (00:26)
[2016-06-28 01:23] VITALS: BP 130/76
[2016-06-28 01:35] LABS: ANION GAP 8 MEQ/L (8-16); BLOOD UREA NITROGEN 12 MG/DL (7-18); CALCIUM LEVEL 8.4 MG/DL (8.5-10.1); CARBON DIOXIDE LEVEL 25 MEQ/L (21-32); CHLORIDE LEVEL 110 MEQ/L (98-107); GLOMERULAR FILTRATION RATE > 60.0 (>60); GLUCOSE, FASTING 95 MG/DL (70-105); POTASSIUM SERUM 3.7 MEQ/L (3.5-5.1); SODIUM LEVEL 143 MEQ/L (136-145); T UPTAKE 39 % (33-40); THYROXINE (T4) 8.9 UG/DL (4.5-12.0)
--- NOTE | 2016-06-28 12:35 | ECGEPIP ---
Stationary ECG Study [facility] - ED Test Date: 2016-06-28 Pat Name: CAIN PIERRE Department: Room: - Gender: M Harp Regulator: HILDA : 1980 Requested By: SOFY STEVEN Order Number: [id number] Reading MD: Mariya Fairchild Measurements Intervals [place] Rate: 94 P: 65 [place]: 179 QRS: 34 QRSD: 102 T: 30 QT: 337 QTc: 422 Interpretive Statements SINUS RHYTHM INCREASED RATE 04/22/16 Electronically Signed On 06-28-2016 12:35:01 EDT by Mariya Fairchild
== END 2016-06-28 01:59 | disposition home or self-care (01) ==
LOC: EDBD 00:15 → M ED 01:04
DX: F10.120 Alcohol abuse with intoxication, uncomplicated (principal); Z86.79 Personal history of other diseases of the circulatory system; Z79.82 Long term (current) use of aspirin; Z88.0 Allergy status to penicillin; Z95.818 Presence of other cardiac implants and grafts
CPT/HCPCS: 80048; 84436; 84443; 84479; 93005; 99283; G0480

== ENCOUNTER 2016-08-23 03:09 | Emergency (ER) | payer OTHER ==
[~2016-08-23] VITALS: Ht 177.8 cm; Wt 104.3 kg
[~2016-08-23 03:09] MED LIST changes: +FLEC1TAB PO
[2016-08-23] MEDS ORDERED: TRAZ50TA4 PO (03:18)
[2016-08-23] MEDS ORDERED: ZOLO50TA PO (03:18)
[2016-08-23 06:15] LABS: BASO # 0.1 K/mm3 (0.0-0.2); BASO % 0.9 % (0.0-1.0); EOS # 0.2 K/mm3 (0.0-0.50); EOS % 3.1 % (0.0-3.0); LARGE UNSTAINED CELL # 0.1 K/mm3 (0.0-0.4); LARGE UNSTAINED CELL % 1.6 % (0.0-4.0); LYMPH % 25.8 % (24.0-44.0); MEAN CORPUSCULAR HGB CONC 34.1 g/dl (32.0-36.5); MONO # 0.4 K/mm3 (0.0-0.8); MONO % 5.9 % (0.0-5.0); NEUTROPHILS # 4.6 K/mm3 (1.8-7.7); NEUTROPHILS % 62.7 % (36.0-66.0); PLATELET COUNT, AUTOMATED 226 k/mm3 (150-450); RED CELL DISTRIBUTION WIDTH 12.9 % (11.5-14.5); WHITE BLOOD COUNT 7.2 K/mm3 (4.0-10.0)
[2016-08-23] MEDS ORDERED: KETOROLAC 30 MG/ML VIAL (J1885) IV ONE (06:15)
[2016-08-23] MEDS ORDERED: NS 500 ML IV ONE (06:15)
[2016-08-23 06:39] LABS: ALBUMIN 4.6 GM/DL (3.2-5.2); ALBUMIN/GLOBULIN RATIO 1.15 (1.00-1.93); ALKALINE PHOSPHATASE 55 U/L (45-117); ALT/SGPT 58 U/L (12-78); AMYLASE 39 U/L (25-115); ANION GAP 7 MEQ/L (8-16); AST/SGOT 33 U/L (15-37); BILIRUBIN,DIRECT < 0.1 MG/DL (0.0-0.2); BILIRUBIN,TOTAL 0.4 MG/DL (0.2-1.0); BLOOD UREA NITROGEN 15 MG/DL (7-18); CALCIUM LEVEL 9.1 MG/DL (8.5-10.1); CARBON DIOXIDE LEVEL 24 MEQ/L (21-32); CHLORIDE LEVEL 107 MEQ/L (98-107); CREATININE FOR GFR 1.16 MG/DL (0.70-1.30); GLOMERULAR FILTRATION RATE > 60.0 (>60); GLUCOSE, FASTING 88 MG/DL (70-105); POTASSIUM SERUM 4.3 MEQ/L (3.5-5.1); SODIUM LEVEL 138 MEQ/L (136-145); TOTAL PROTEIN 8.6 GM/DL (6.4-8.2)
[2016-08-23 06:43] VITALS: BP 158/72
--- NOTE | 2016-08-23 07:30 | REPUSA ---
CLINICAL HISTORY: Abdominal pain. TECHNIQUE: Realtime sonographic images were obtained in multiple projections. COMMENTS: The liver is of normal size, parenchyma demonstrates normal echogenicity. No discrete hepatic mass is seen. There is no intra or extrahepatic biliary ductal dilatation. CBD measures 6.1 mm. The gallbladder is physiologically distended without evidence of calculi. The gallbladder wall is not thickened measurin g 1.5 mm and there is no pericholecystic fluid. There is no abdominal ascites. The right kidney measures 12.6x7x4 cm , free of hydronephrosis. IMPRESSION: Unremarkable study. Thank you for your kind referral of this patient.
--- NOTE | 2016-08-24 11:46 | ECGEPIP ---
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
== END 2016-08-23 07:54 | disposition home or self-care (01) ==
LOC: M ED 04:19
DX: R51 Headache (principal); R11.2 Nausea with vomiting, unspecified; R19.7 Diarrhea, unspecified; R10.11 Right upper quadrant pain; I48.91 Unspecified atrial fibrillation; J45.909 Unspecified asthma, uncomplicated; Z88.0 Allergy status to penicillin; Z79.899 Other long term (current) drug therapy; Z79.82 Long term (current) use of aspirin
CPT/HCPCS: 76705; 80048; 80076; 81001; 82150; 83690; 85025; 86140; 93005; 96361; 96374; 99283; J1885

== ENCOUNTER → 2016-08-27 | Outpatient (CLI) | payer OTHER ==
[~2016-08-27] MED LIST changes: +ACET-654; +MAXA5TAB10 PO; +PATIENT COMMENT; +PRAZ1CAP PO; +RIZA5TAB3 PO; +TRAZ50TA4 PO; +TYLE325T5 PO; +VALA1TAB PO; +ZOLO50TA PO
[2016-08-27 15:47] LABS: MAGNESIUM LEVEL 2.1 MG/DL (1.8-2.4)
--- NOTE | 2016-08-28 01:39 | REP ---
Clinical: Chest pain and dyspnea. Comparison: 04/22/2016. Technique: PA and lateral. Findings: The mediastinum and cardiac silhouette are normal. The lung lora are stable and without acute consolidation, effusion, or pneumothorax. The skeletal structures are intact and normal. Impression Stable. No acute cardiopulmonary process. Signed by Alphonso Torres MD 08/28/2016 01:30 A
== END ==
LOC: M SMT 10:03
PROVIDERS: ATTEND Internal Medicine Cardiovascular Disease
DX: I48.91 Unspecified atrial fibrillation (principal); R07.9 Chest pain, unspecified; R06.00 Dyspnea, unspecified

== ENCOUNTER 2016-09-12 13:41 | Inpatient (IN) | payer OTHER ==
[~2016-09-12] VITALS: Ht 177.8 cm; Wt 106.0 kg
[~2016-09-12 13:41] MED LIST changes: -ACET-654; +ASPI325T24 PO; -ASPI32ECTA PO; -MAXA5TAB10 PO; -PATIENT COMMENT; -PRAZ1CAP PO; -RIZA5TAB3 PO; +TRAZ50TA11 PO; -TRAZ50TA4 PO; -TYLE325T5 PO; -VALA1TAB PO
[2016-09-12] MEDS ORDERED: VALA1TAB2 PO ×2 (13:59→18:17)
[2016-09-12] MEDS ORDERED: ACET1TAB17 (13:59)
[2016-09-12] MEDS ORDERED: MAXA5TAB10 PO (13:59)
[2016-09-12] MEDS ORDERED: PRAZ1CAP PO ×2 (13:59→17:06)
[2016-09-12] MEDS ORDERED: ACETYLCYSTEINE 14,700 MG in D5W 250 ML IV ONE ×4 (14:00)
[2016-09-12] MEDS ORDERED: NS 1,000 ML IV ONE (14:00)
[2016-09-12 14:11] LABS: BASO # 0.1 K/mm3 (0.0-0.2); EOS # 0.2 K/mm3 (0.0-0.50); LARGE UNSTAINED CELL # 0.2 K/mm3 (0.0-0.4); LARGE UNSTAINED CELL % 3.3 % (0.0-4.0); LYMPH # 2.4 K/mm3 (1.5-4.5); LYMPH % 35.3 % (24.0-44.0); MEAN CORPUSCULAR HEMOGLOBIN 30.9 pg (27.0-33.0); MEAN CORPUSCULAR HGB CONC 34.6 g/dl (32.0-36.5); MEAN CORPUSCULAR VOLUME 89.5 fl (80.0-96.0); MONO # 0.4 K/mm3 (0.0-0.8); MONO % 5.4 % (0.0-5.0); NEUTROPHILS # 3.5 K/mm3 (1.8-7.7); NEUTROPHILS % 52.1 % (36.0-66.0); PLATELET COUNT, AUTOMATED 227 k/mm3 (150-450); RED CELL DISTRIBUTION WIDTH 13.4 % (11.5-14.5); WHITE BLOOD COUNT 6.7 K/mm3 (4.0-10.0)
[2016-09-12 14:13] LABS: VENOUS BASE EXCESS -3.6 (-2.0-2.0); VENOUS O2 SATURATION 95.9 % (60.0-80.0); VENOUS PARTIAL PRESSURE CO2 35.3 mmHg (38.0-50.0); VENOUS PARTIAL PRESSURE O2 < 10.0 mmHg (30.0-50.0); VENOUS STANDARD HCO3 21.5 MEQ/L; VENOUS TOTAL CO2 21.7 MEQ/L (24.0-28.0)
[2016-09-12 14:31] LABS: METHADONE URINE NEGATIVE (NEGATIVE)
[2016-09-12 14:37] LABS: ALBUMIN 4.6 GM/DL (3.2-5.2); ALBUMIN/GLOBULIN RATIO 1.48 (1.00-1.93); ALKALINE PHOSPHATASE 47 U/L (45-117); ALT/SGPT 53 U/L (12-78); ANION GAP 10 MEQ/L (8-16); AST/SGOT 48 U/L (15-37); BILIRUBIN,DIRECT < 0.1 MG/DL (0.0-0.2); BILIRUBIN,TOTAL 0.4 MG/DL (0.2-1.0); BLOOD UREA NITROGEN 13 MG/DL (7-18); CARBON DIOXIDE LEVEL 23 MEQ/L (21-32); CHLORIDE LEVEL 112 MEQ/L (98-107); CREATININE FOR GFR 1.14 MG/DL (0.70-1.30); GLOMERULAR FILTRATION RATE > 60.0 (>60); GLUCOSE, FASTING 117 MG/DL (70-105); POTASSIUM SERUM 3.7 MEQ/L (3.5-5.1); SODIUM LEVEL 145 MEQ/L (136-145); TOTAL PROTEIN 7.7 GM/DL (6.4-8.2)
[2016-09-12] MEDS ORDERED: ONDANSETRON 4MG/2ML VIAL (J2405) As Ordered ONE (14:56)
[2016-09-12] MEDS ORDERED: LORazepam 2 MG/ML VIAL (J2060) IV STA ×2 (14:59→15:15)
[2016-09-12] MEDS ORDERED: ONDANSETRON 4MG/2ML VIAL (J2405) IV ONE (15:00)
[2016-09-12] MEDS ORDERED: ACETYLCYSTEINE 4,900 MG in D5W 500 ML IV ONE (15:00)
[2016-09-12] MEDS ORDERED: TYLE325T5 PO (17:06)
[2016-09-12] MEDS ORDERED: RIZA5TAB3 PO (17:06)
[2016-09-12] MEDS ORDERED: PATIENT COMMENT (17:07)
[2016-09-12] MEDS ORDERED: ONDANSETRON 4MG/2ML VIAL (J2405) IV PRN (18:45)
[2016-09-12] MEDS ORDERED: BISACODYL 5 MG TAB PO PRN (18:45)
[2016-09-12] MEDS ORDERED: FLECAINIDE 100 MG TABLET PO PRN (19:00)
[2016-09-12] MEDS ORDERED: ACETYLCYSTEINE 9,800 MG in D5W 1,000 ML IV ONE (19:00)
[2016-09-12] MEDS ORDERED: LORazepam 2 MG/ML VIAL (J2060) IV PRN (19:30)
[2016-09-12 20:30] VITALS: BP_SYST 130; BP_SYST 148; BP_DIAS 62; BP_DIAS 75
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
[2016-09-12 21:00] VITALS: BP 133/80
[2016-09-12] MEDS ORDERED: PRAZOSIN 1 MG CAP PO SCH (21:00)
[2016-09-12] MEDS ORDERED: traZODone 50 MG TAB PO SCH (21:00)
[2016-09-12] MEDS: HEPARIN SOD (PORCINE) 5000 UNITS/ML VIAL SC SCH (21:29)
[2016-09-13 04:45] VITALS: BP 125/58
[2016-09-13 05:26] LABS: BASO # 0.1 K/mm3 (0.0-0.2); BASO % 0.8 % (0.0-1.0); EOS # 0.1 K/mm3 (0.0-0.50); EOS % 1.4 % (0.0-3.0); LARGE UNSTAINED CELL # 0.1 K/mm3 (0.0-0.4); LARGE UNSTAINED CELL % 1.4 % (0.0-4.0); LYMPH # 1.6 K/mm3 (1.5-4.5); LYMPH % 20.4 % (24.0-44.0); MEAN CORPUSCULAR HEMOGLOBIN 30.1 pg (27.0-33.0); MEAN CORPUSCULAR HGB CONC 34.1 g/dl (32.0-36.5); MEAN CORPUSCULAR VOLUME 88.2 fl (80.0-96.0); MONO # 0.4 K/mm3 (0.0-0.8); MONO % 5.7 % (0.0-5.0); NEUTROPHILS # 5.2 K/mm3 (1.8-7.7); NEUTROPHILS % 70.2 % (36.0-66.0); PLATELET COUNT, AUTOMATED 200 k/mm3 (150-450); RED CELL DISTRIBUTION WIDTH 13.8 % (11.5-14.5); WHITE BLOOD COUNT 7.4 K/mm3 (4.0-10.0)
[2016-09-13 05:48] LABS: ALBUMIN 3.8 GM/DL (3.2-5.2); ALBUMIN/GLOBULIN RATIO 1.23 (1.00-1.93); ALKALINE PHOSPHATASE 38 U/L (45-117); ALT/SGPT 62 U/L (12-78); ANION GAP 8 MEQ/L (8-16); AST/SGOT 35 U/L (15-37); BILIRUBIN,TOTAL 0.5 MG/DL (0.2-1.0); BLOOD UREA NITROGEN 9 MG/DL (7-18); CALCIUM LEVEL 8.5 MG/DL (8.5-10.1); CARBON DIOXIDE LEVEL 27 MEQ/L (21-32); CHLORIDE LEVEL 108 MEQ/L (98-107); GLOMERULAR FILTRATION RATE > 60.0 (>60); GLUCOSE, FASTING 101 MG/DL (70-105); MAGNESIUM LEVEL 1.5 MG/DL (1.8-2.4); POTASSIUM SERUM 3.3 MEQ/L (3.5-5.1); SODIUM LEVEL 143 MEQ/L (136-145); TOTAL PROTEIN 6.9 GM/DL (6.4-8.2)
[2016-09-13] MEDS: HEPARIN SOD (PORCINE) 5000 UNITS/ML VIAL SC SCH ×2 (06:15→13:13)
[2016-09-13 08:00] VITALS: BP 121/67
[2016-09-13] MEDS ORDERED: POTASSIUM CHLORIDE 10 MEQ SR TABLET PO ONE (08:30)
[2016-09-13] MEDS ORDERED: SERTRALINE HCL 50 MG TAB PO SCH (09:00)
[2016-09-13 12:00] VITALS: BP 151/80
[2016-09-13] MEDS ORDERED: RIZATRIPTAN BENZOATE 10 MG TAB PO PRN (13:30)
[2016-09-13 14:18] LABS: ALBUMIN 4.3 GM/DL (3.2-5.2); ALBUMIN/GLOBULIN RATIO 1.39 (1.00-1.93); BILIRUBIN,DIRECT 0.1 MG/DL (0.0-0.2); BILIRUBIN,TOTAL 0.5 MG/DL (0.2-1.0); TOTAL PROTEIN 7.4 GM/DL (6.4-8.2)
[2016-09-13] MEDS ORDERED: FLEC1TAB PO ×2 (15:27→15:35)
[2016-09-13] MEDS ORDERED: ASPI325T24 PO (15:27)
[2016-09-13] MEDS ORDERED: FLEC10TA GT (15:33)
[2016-09-13 16:00] VITALS: BP 140/79
[2016-09-13] MEDS ORDERED: MAG SULF 1GM/100ML (MAG RUN) 1 GM in APPROPRIATE DILUENT 1 EA IV ONE (18:00)
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
--- NOTE | 2016-09-14 06:54 | DSES ---
DATE OF ADMISSION: 09/12/2016 DATE OF DISCHARGE: 09/13/2016 PRIMARY CARE PROVIDER: Joie Nice. CONSULTANTS: 1. Poison control. 2. Dr. Lundberg. PROCEDURES: None. PRIMARY DIAGNOSIS: Drug overdose (possibly acetaminophen). SECONDARY DIAGNOSES: 1. Alcohol toxicity. 2. History of atrial fibrillation. 3. Insomnia. 4. Obstructive sleep apnea. 5. Hypokalemia. 6. Hypertension. 7. Depression. 8. Anxiety. DISCHARGE MEDICATIONS: - aspirin 325 mg by mouth daily - flecainide 100 mg daily as needed chest pain - prazosin 1 mg by mouth at bedtime - rizatriptan benzoate 5 mg as needed for headache - Zoloft 50 mg by mouth daily - trazodone 100 mg by mouth at bedtime - valacyclovir 1 gram by mouth twice a day as needed cold sore HOSPITAL COURSE: Mr. Issa was brought to the emergency room (ER) by his friends due to altered mental status, as well as having suicidal ideation. Earlier that day, the patient spoke with his friend, made the comment regarding suicidal ideation and wanted to commit suicide. When the patient presented to the ER, was having altered mental status. At first, the patient did not answer questions. However, after several hours, the patient woke up and the patient expressed that he does not remember why he is here and he only took Tylenol as needed and followed the instructions on the Tylenol bottle. However, according to the report from his , the patient was abusing medication before. The patient was started on acetylcysteine for all three steps. Also, we contact poison control, who recommended to followup with the patient's electrolytes, as well as liver function, and acetaminophen level. At the ER, the toxicology indicated elevation of acetaminophen level (148.1) and elevated ethyl alcohol (0.237). However, acetaminophen level was repeated again at night, which was 19.1. One hour after the acetylcysteine step three, the acetaminophen level was checked again, which was less than two. The patient was complaining about the right upper quadrant abdominal pain and AST was mildly elevated (48). We have repeated the liver function test in the morning which was negative. Also, one hour after acetylcysteine step three, we checked the liver function again which was negative. Due to the suicidal ideations, we have consulted psychiatry who recommended the patient to be admitted to inpatient mental health unit (IM) after the patient was medically stable, and the patient was admitted to [facility]. At the time of transfer, the patient was medically optimized. ACTIVITY: Activity as tolerated by the patient. FOLLOWUP: Please followup with your primary care within seven days. My preceptor for this patient encounter was Dr. Ferris. The preceptor was physically present in the building during the encounter and was fully available as needed. All aspects of the patient interview, examination, medical decision making process, and medical care plan development were reviewed and approved by the preceptor. The preceptor is aware and concurs with the plan as stated in the body of this note and will attest to such by his/her co-signature.
--- NOTE | 2016-09-14 07:16 | ECGEPIP ---
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
== END 2016-09-13 20:08 | DRG 918 ==
LOC: M ED 13:41 → M ED INP 18:36 → M PCU 20:29
PROVIDERS: ADMIT Hospitalist; ATTEND Internal Medicine
DX: T39.1X4A Poisoning by 4-Aminophenol derivatives, undetermined, initial encounter (principal); R45.851 Suicidal ideations; G47.33 Obstructive sleep apnea (adult) (pediatric); G47.00 Insomnia, unspecified; I10 Essential (primary) hypertension; F32.9 Major depressive disorder, single episode, unspecified; F41.9 Anxiety disorder, unspecified; E87.6 Hypokalemia; Z79.899 Other long term (current) drug therapy; T51.0X4A Toxic effect of ethanol, undetermined, initial encounter; Z88.0 Allergy status to penicillin; Z91.19 Patient's noncompliance with other medical treatment and regimen; Z63.9 Problem related to primary support group, unspecified; F10.20 Alcohol dependence, uncomplicated

== ENCOUNTER 2016-09-13 16:17 | Inpatient (IN) | payer OTHER ==
[~2016-09-13] VITALS: Ht 177.8 cm; Wt 106.4 kg
[~2016-09-13 16:17] MED LIST changes: +ACET1TAB17; +FLEC10TA GT; +MAXA5TAB10 PO; +PATIENT COMMENT; +PRAZ1CAP PO; +RIZA5TAB3 PO; +TYLE325T5 PO; +VALA1TAB2 PO
[2016-09-13] MEDS ORDERED: MOM 30ML SUSPENSION UDC PO PRN (18:00)
[2016-09-13] MEDS ORDERED: traZODone 100 MG TAB PO PRN (18:00)
[2016-09-13] MEDS ORDERED: RIZATRIPTAN BENZOATE 10 MG TAB PO PRN (18:00)
[2016-09-13] MEDS ORDERED: MAALOX 30 ML SUSP *UDC PO PRN (18:00)
[2016-09-13] MEDS ORDERED: IBUPROFEN 400 MG TAB PO PRN (18:00)
[2016-09-13] MEDS ORDERED: HALOPERIDOL 5 MG TAB PO PRN (18:00)
[2016-09-13 20:16] VITALS: BP 155/90
[2016-09-13] MEDS ORDERED: IBUPROFEN 800 MG TAB PO ONE (22:15)
[2016-09-13] MEDS: PRAZOSIN 1 MG CAP PO SCH (22:35)
[2016-09-14 06:00] VITALS: BP 142/65
[2016-09-14] MEDS ORDERED: QUEtiapine FUMARATE 50 MG TAB PO PRN (08:30)
[2016-09-14] MEDS ORDERED: FLECAINIDE 100 MG TABLET PO SCH (09:00)
[2016-09-14] MEDS ORDERED: SERTRALINE HCL 50 MG TAB PO SCH (09:00)
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
[2016-09-14] MEDS: busPIRone 10 MG TAB PO SCH ×3 (09:55→21:25)
[2016-09-14 18:17] VITALS: BP 124/70
[2016-09-14] MEDS: PRAZOSIN 1 MG CAP PO SCH (21:25)
[2016-09-14] MEDS: IBUPROFEN 800 MG TAB PO PRN (21:26)
[2016-09-15 06:13] VITALS: BP 120/60
[2016-09-15] MEDS: buPROPion 75 MG TAB PO SCH (08:32)
[2016-09-15] MEDS: SERTRALINE HCL 25 MG TABLET PO SCH (08:33)
[2016-09-15] MEDS: busPIRone 10 MG TAB PO SCH ×3 (08:33→20:54)
--- NOTE | 2016-09-15 16:24 | IPN ---
DATE: 09/15/2016 A 36-year-old male admitted after a Tylenol overdose and alcohol intoxication, although he is somewhat minimizing the events that led to his admission. SUBJECTIVE: "I'm feeling better. I am having some anxiety and chest discomfort, but I guess it is due to the medication change." OBJECTIVE: No major changes from the first evaluation. The patient appears to be motivated for treatment. The patient is tolerating well the change from Zoloft to Wellbutrin, although he complains of some degree of anxiety. The patient is compliant with the medication. Appears to be motivated. MENTAL STATUS EXAMINATION: The patient is dressed in [facility]. The patient is cooperative, has fair eye contact. Speech is slow and monotone. Mood is anxious. Affect is congruent with mood. No evidence of delusions or hallucinations. Memory is fair. The patient is fully oriented. Associations are intact. Thinking is logical. Thought content is appropriate. The patient is able to contract for safety during the hospitalization. Insight and judgment are limited. ASSESSMENT: 1. Anxiety. 2. Depression. 3. Overdose on Tylenol. 4. Alcohol intoxication. PLAN: 1. Continue tapering Zoloft. He is taking 25 mg by mouth every morning. 2. Continue Wellbutrin 75 mg by mouth every morning. 3. Continue BuSpar 10 mg by mouth three times a day. 4. Continue Prazosin 1 mg by mouth at bedtime. 5. Continue trazodone 100 mg by mouth at bedtime as needed for insomnia. 6. Continue medication management, individual and group therapy.
[2016-09-15 18:00] VITALS: BP 127/68
[2016-09-15] MEDS: PRAZOSIN 1 MG CAP PO SCH (20:55)
[2016-09-16 06:15] VITALS: BP 144/94
[2016-09-16] MEDS: busPIRone 10 MG TAB PO SCH ×3 (08:44→21:49)
[2016-09-16] MEDS: SERTRALINE HCL 25 MG TABLET PO SCH (08:44)
[2016-09-16] MEDS: buPROPion 75 MG TAB PO SCH (08:44)
--- NOTE | 2016-09-16 16:55 | IPN ---
DATE: 09/16/2016 A 36-year-old male admitted after a Tylenol overdose and alcohol intoxication. Patient was minimizing the events that led to his admission. SUBJECTIVE: "I'm feeling better. I'm less anxious." OBJECTIVE: Patient reports improvement from the anxiety point of view. Patient states that the medication at that time was not helping. He slept around six hours. He is motivated for treatment. No evidence of side effects. No auditory or visual hallucinations or delusions. MENTAL STATUS EXAMINATION: Patient is dressed in [facility]. Patient is calm and cooperative. Has fair eye contact. Speech is slow and monotone. Mood is depressed and anxious, but somewhat improved. Affect is restricted. No delusions or hallucinations. Memory is fair. Patient is fully oriented. Associations are intact. Thinking is logical. Patient is able to contract for safety during the interview. Insight and judgment is fair. ASSESSMENT: 1. Anxiety. 2. Depression. 3. Tylenol overdose. 4. Alcohol intoxication. PLAN: 1. Increase trazodone to 150 mg by mouth at bedtime. 2. Continue tapering Zoloft. He is taking 25 mg every morning. 3. Continue Wellbutrin 75 mg by mouth every morning. 4. Continue BuSpar 10 mg by mouth three times a day. 5. Continue prazosin 1 mg by mouth at bedtime.
[2016-09-16 18:28] VITALS: BP 131/63
[2016-09-16] MEDS: hydrOXYzine 25 MG TAB PO PRN (18:52)
[2016-09-16] MEDS ORDERED: traZODone 50 MG TAB PO SCH (21:00)
[2016-09-16] MEDS: PRAZOSIN 1 MG CAP PO SCH (21:50)
[2016-09-17 06:38] VITALS: BP 118/67
--- NOTE | 2016-09-17 08:13 | HPE ---
DATE OF ADMISSION: 09/13/2016 HISTORY OF PRESENT ILLNESS: Please refer to psychiatric history and evaluation for further details on this admission. This examination and history is intended for medical issues, which may need treatment, followup or consultation on this 36-year-old male, who was transferred from the progressive care unit (PCU) after having been stabilized from taking an overdose. PRIMARY CARE PROVIDER: Joie Ncie. CMO: Dr. Dave. ALLERGIES: AMOXICILLIN. 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 He is and has two children. He does not smoke cigarettes. He does not use recreational drugs. He rarely drinks but when he does it is to excess. He drank in June and was admitted here. He drank on the day he was admitted here and his EtOH on admission was 0.237. PAST MEDICAL HISTORY: Atrial fibrillation. He is currently in sinus rhythm. He follows with Dr. Dave, saw offbearer, and has a loop recorder. He has obstructive sleep apnea on CPAP. He has it here with him and will continue it while inpatient. Migraines. PAST SURGICAL HISTORY: Coyote teeth removal in 2008. Adenoidectomy. Appendectomy. Loop recorder implant. REVIEW OF SYSTEMS: 10 systems review was done. The patient had no current complaints. CURRENT MEDICATIONS: - aspirin 325 mg by mouth daily - flecainide 100 mg by mouth daily as needed for chest pain or palpitations - prazosin 1 mg by mouth at night - Maxalt 5 mg by mouth as needed at the start of a headache - sertraline 50 mg by mouth daily, which is being stopped - trazodone 50 mg by mouth daily - valacyclovir 1 gram by mouth twice a day for cold sores PHYSICAL EXAMINATION: GENERAL: 36-year-old cooperative male in no acute distress. Height 70 inches, weight 100.4 kg, Body Mass Index (BMI) 31.8. VITAL SIGNS: Blood pressure 124/70, pulse 60, respirations 18, temperature 98.4. The patient is alert and oriented times three. HEENT: Pupils are equal and reactive to light. Extraocular muscles intact. Sclerae clear. Conjunctivae normal. No facial asymmetry. Pharynx, gums and tongue pink and moist. Tongue is midline. NECK: Supple without lymphadenopathy, thyromegaly or goiter. Carotids are 2+ without bruit. CHEST: Clear to auscultation without wheeze or retraction. HEART: Regular. ABDOMEN: Benign. Bowel sounds positive. GENITOURINARY/RECTAL: Not done. EXTREMITIES: Equal strength, full range of motion. No clubbing, cyanosis, and edema. Peripheral pulses equal and palpable bilaterally. SKIN: Warm and dry. IMPRESSION/PLAN: 1. Psychiatric plan per psychiatry. 2. History of atrial fibrillation with loop recorder. Notify us if he has any palpitations or chest pain. Continue followup with outpatient saw offbearer, Dr. Dave. We will restart aspirin 325 mg daily. 3. Obstructive sleep apnea on CPAP. 4. History of migraines. He states that he has an appointment with [facility] neurology on 09/26/2016 and he has an MRI of the brain ordered, which he has not had completed yet. Continue followup with his outpatient providers for this. If he remains inpatient, he can reschedule with [facility]. 5. Hypertension, stable. 6. History of depression and anxiety. Treatment per psychiatry.
[2016-09-17] MEDS: buPROPion 75 MG TAB PO SCH (08:44)
[2016-09-17] MEDS: SERTRALINE HCL 25 MG TABLET PO SCH (08:44)
[2016-09-17] MEDS: busPIRone 10 MG TAB PO SCH ×3 (08:44→21:36)
[2016-09-17] MEDS: hydrOXYzine 25 MG TAB PO PRN (10:33)
--- NOTE | 2016-09-17 11:14 | MHIPNPDOC ---
[facility] Progress Note Progress Note DATE OF SERVICE: 09/17/16 HISTORY: day 5 of admission VITAL SIGNS: See below. NEW TEST RESULTS: na CURRENT MEDICATIONS: See below. MENTAL STATUS EXAMINATION: Patient is a 36-year old male, who is dressed in casual street clothes, good hygiene, good eye contact, even temperament, pleasant. Speech: Is clear and logical Language skills are intact Thought processes including: goal directed Thought content: appropriate Abstract reasoning, and computation: good. Description of associations: good. Description of abnormal or psychotic thoughts: no abnormal or psychotic thoughts observed or illicited.. Judgment: fair Insight: good. Orientation: well oriented x 4 Recent and remote memory:intact Attention span and concentration:good. Fund of knowledge: full Mood: anxious. Affect: congruent DIAGNOSES: Generalized Anxiety disorder Alcohol abuse Intermittent Insomnia ARTURO A-fib ASSESSMENT:pt is reporting feeling the effects of the mediation increase for trazodone. He is feeling poorly and we discussed the medication. he has that hangover feeling this a.m. He questions th edose of the medication and asked for a reduction. Will reduce to 100 mg this a.m. and will evaluated. 2. History of atrial fibrillation with loop recorder. Notify us if he has any palpitations or chest pain. Continue followup with outpatient asbestos coverer, Dr. Dave. We will restart aspirin 325 mg daily. 3. Obstructive sleep apnea on CPAP. 4. History of migraines. He states that he has an appointment with [facility] neurology on 09/26/2016 and he has an MRI of the brain ordered, which he has not had completed yet. Continue followup with his outpatient providers for this. If he remains inpatient, he can reschedule with [facility]. 5. Hypertension, stable. MANAGEMENT PLAN: Lower trazodone to 100 mg prn at hs with prn hydroxyzine 100 mg if necessary. Other options can be discussed if this does not succeed in sustaining sleep. 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 he says a friend of his was assisted by this program and he interested iin finding out about it and seeing if he may be a candidate. He is hoping to get his more involved so they can improve their marriage/communication. Pt has completed sertraline taper. Is only on Wellbutrin now. We discussed the role of alcohol on sleep pattern and advised caution. Enc pt not to take trazodone when drinking alcohol. Awaiting feedback from the regarding LT treatment at [facility]. Will check into [facility] program. TIME SPENT: 30 minutes. Vital Signs Vital Signs Date Time Temp Pulse Resp B/P (MAP) Pulse Ox O2 Delivery O2 Flow Rate FiO2 09/17/16 06:38 98.1 67 16 118/67 (84) 09/13/16 20:16 Room Air Current Medications Current Medications Al Hydrox/Mg Hydrox/Simethicone (Mylanta) 30 ml Q4HP PRN PO HEARTBURN/ INDIGESTION Last administered on 09/16/16 17:47; Start 09/13/16 at 18:00; Stop 10/13/16 at 17:59 Bupropion HCl (Wellbutrin) 75 mg QAM PO Last administered on 09/17/16 08:44; Start 09/15/16 at 09:00; Stop 10/15/16 at 08:59 Buspirone HCl (Buspar) 10 mg TID PO Last administered on 09/17/16 08:44; Start 09/14/16 at 09:00; Stop 10/14/16 at 08:59 Flecainide Acetate (Tambocor) 100 mg DAILY PO ; Start 09/14/16 at 09:00; Stop at 09:00; Status DC Haloperidol (Haldol) 5 mg Q6HP PRN PO ANXIETY/AGITATION; Start 09/13/16 at 18: 00; Stop 10/13/16 at 17:59; Status Cancel Hydroxyzine HCl (Atarax) 25 mg Q6HP PRN PO ANXIETY Last administered on 10:33; Start 09/14/16 at 09:45; Stop 10/14/16 at 09:44 Ibuprofen (Advil) 400 mg Q6HP PRN PO PAIN; Start 09/13/16 at 18:00; Stop at 17:59 Ibuprofen (Advil) 800 mg Q6HP PRN PO MODERATE PAIN (PS 5-7) Last administered on 09/14/16 21:26; Start 09/14/16 at 04:00; Stop 10/14/16 at 03:59 Magnesium Hydroxide (Milk Of Magnesia) 30 ml DAILYPRN PRN PO CONSTIPATION; Start 09/13/16 at 18:00; Stop 10/13/16 at 17:59 Prazosin HCl (Minipress) 1 mg QHS PO Last administered on 09/16/16 21:50; Start 09/13/16 at 21:00; Stop 10/13/16 at 20:59 Quetiapine Fumarate (SEROquel) 50 mg Q8HP PRN PO ANXIETY/AGITATION; Start 09/14 at 08:30; Stop 09/16/16 at 12:18; Status DC Rizatriptan Benzoate (Maxalt) 5 mg DAILYPRN PRN PO MIGRAINE Last administered on 09/15/16 13:33; Start 09/13/16 at 18:00; Stop 10/13/16 at 17:59 Sertraline HCl (Zoloft) 25 mg QAM PO Last administered on 09/17/16 08:44; Start 09/15/16 at 09:00; Stop 09/17/16 at 10:01; Status DC Sertraline HCl (Zoloft) 50 mg DAILY PO Last administered on 09/14/16 08:32; Start 09/14/16 at 09:00; Stop 09/14/16 at 10:55; Status DC Trazodone HCl (Desyrel) 100 mg QHSP PRN PO INSOMNIA Last administered on 22:34; Start 09/13/16 at 18:00; Stop 09/16/16 at 12:18; Status DC Trazodone HCl (Desyrel) 150 mg QHS PO Last administered on 09/16/16 21:50; Start 09/16/16 at 21:00; Stop 10/16/16 at 20:59 Valacyclovir HCl (Valtrex) 1,000 mg BID PRN PO cold sores; Start 09/13/16 at 18 :00; Stop 09/20/16 at 17:59 Allergies Coded Allergies: Amoxicillin (Unverified Allergy, Unknown, [facility] , 06/28/16) Anabela Crow Sep 17, 2016 11:14
[2016-09-17 18:01] VITALS: BP 127/60
[2016-09-17] MEDS: PRAZOSIN 1 MG CAP PO SCH (21:36)
[2016-09-17] MEDS: hydrOXYzine 50 MG TAB PO PRN (21:36)
[2016-09-18 06:23] VITALS: BP 141/61
[2016-09-18] MEDS: buPROPion 75 MG TAB PO SCH (08:21)
[2016-09-18] MEDS: IBUPROFEN 800 MG TAB PO PRN ×2 (08:21→18:36)
[2016-09-18] MEDS: busPIRone 10 MG TAB PO SCH (08:21)
[2016-09-18] MEDS: hydrOXYzine 25 MG TAB PO PRN ×2 (10:27→18:35)
--- NOTE | 2016-09-18 10:59 | MHIPNPDOC ---
[facility] Progress Note Progress Note DATE OF SERVICE: 09/18/16 HISTORY: day 6 of Voluntary admission for tylenol overdose. VITAL SIGNS: See below. NEW TEST RESULTS: na CURRENT MEDICATIONS: See below. 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 Speech: Is logical Language skills are intact Thought processes including: logical Thought content: sleep, meds, discharge. Abstract reasoning, and computation: good. Description of associations: good. Description of abnormal or psychotic thoughts: none, denies suicidal ideation or plan. Judgment: fair Insight: good. Orientation: well oriented in all spheres. Recent and remote memory: intact Attention span and concentration: good Fund of knowledge: full. Mood: anxious Affect: congruent DIAGNOSES: ADITI Alcohol abuse ASSESSMENT: pt did not receive his hydroxyzine and trazodone together as intended last night. He fell asleep after the hydroxyzine but was awake 4 hours later at which time it was too late to take the trazodone. Pt should receive both meds together. Pt cannot tolerate a higher dose of trazodone and hypnotics are not recommended due to his ARTURO. MANAGEMENT PLAN: continue observation, discuss discharge options (if any) for anxiety and substance abuse other than [place] with [facility], discuss with [employer], plan [facility]OY meeting, evaluate medication changes in terms of anxiety reduction and sleep enhancement. Pt has lots of marital conflict and would benefit from couples counseling upon discharge from inpatient treatment. TIME SPENT: 15 minutes. Vital Signs Vital Signs Date Time Temp Pulse Resp B/P (MAP) Pulse Ox O2 Delivery O2 Flow Rate FiO2 09/18/16 06:23 99.5 56 16 141/61 (87) 09/13/16 20:16 Room Air Current Medications Current Medications Al Hydrox/Mg Hydrox/Simethicone (Mylanta) 30 ml Q4HP PRN PO HEARTBURN/ INDIGESTION Last administered on 09/16/16 17:47; Start 09/13/16 at 18:00; Stop 10/13/16 at 17:59 Bupropion HCl (Wellbutrin) 75 mg QAM PO Last administered on 09/18/16 08:21; Start 09/15/16 at 09:00; Stop 10/15/16 at 08:59 Buspirone HCl (Buspar) 10 mg TID PO Last administered on 09/18/16 08:21; Start 09/14/16 at 09:00; Stop 10/14/16 at 08:59 Flecainide Acetate (Tambocor) 100 mg DAILY PO ; Start 09/14/16 at 09:00; Stop at 09:00; Status DC Haloperidol (Haldol) 5 mg Q6HP PRN PO ANXIETY/AGITATION; Start 09/13/16 at 18: 00; Stop 10/13/16 at 17:59; Status Cancel Hydroxyzine HCl (Atarax) 25 mg Q6HP PRN PO ANXIETY Last administered on 10:27; Start 09/14/16 at 09:45; Stop 10/14/16 at 09:44 Hydroxyzine HCl (Atarax) 100 mg QHS PRN PO insomnia Last administered on 21:36; Start 09/17/16 at 21:00; Stop 10/17/16 at 20:59 Ibuprofen (Advil) 400 mg Q6HP PRN PO PAIN; Start 09/13/16 at 18:00; Stop at 17:59 Ibuprofen (Advil) 800 mg Q6HP PRN PO MODERATE PAIN (PS 5-7) Last administered on 09/18/16 08:21; Start 09/14/16 at 04:00; Stop 10/14/16 at 03:59 Magnesium Hydroxide (Milk Of Magnesia) 30 ml DAILYPRN PRN PO CONSTIPATION; Start 09/13/16 at 18:00; Stop 10/13/16 at 17:59 Prazosin HCl (Minipress) 1 mg QHS PO Last administered on 09/17/16 21:36; Start 09/13/16 at 21:00; Stop 10/13/16 at 20:59 Quetiapine Fumarate (SEROquel) 50 mg Q8HP PRN PO ANXIETY/AGITATION; Start 09/14 at 08:30; Stop 09/16/16 at 12:18; Status DC Rizatriptan Benzoate (Maxalt) 5 mg DAILYPRN PRN PO MIGRAINE Last administered on 09/15/16 13:33; Start 09/13/16 at 18:00; Stop 10/13/16 at 17:59 Sertraline HCl (Zoloft) 25 mg QAM PO Last administered on 09/17/16 08:44; Start 09/15/16 at 09:00; Stop 09/17/16 at 10:01; Status DC Sertraline HCl (Zoloft) 50 mg DAILY PO Last administered on 09/14/16 08:32; Start 09/14/16 at 09:00; Stop 09/14/16 at 10:55; Status DC Trazodone HCl (Desyrel) 100 mg QHS PRN PO INSOMNIA; Start 09/17/16 at 21:00; Stop 10/17/16 at 20:59 Trazodone HCl (Desyrel) 100 mg QHSP PRN PO INSOMNIA Last administered on 22:34; Start 09/13/16 at 18:00; Stop 09/16/16 at 12:18; Status DC Trazodone HCl (Desyrel) 150 mg QHS PO Last administered on 09/16/16 21:50; Start 09/16/16 at 21:00; Stop 09/17/16 at 11:08; Status DC Valacyclovir HCl (Valtrex) 1,000 mg BID PRN PO cold sores; Start 09/13/16 at 18 :00; Stop 09/20/16 at 17:59 Allergies Coded Allergies: Amoxicillin (Unverified Allergy, Unknown, [employer] , 06/28/16) Anabela Crow Sep 18, 2016 10:59
[2016-09-18] MEDS: busPIRone 5 MG TAB PO SCH ×2 (15:09→21:05)
[2016-09-18 18:00] VITALS: BP 144/69
[2016-09-18] MEDS: PRAZOSIN 1 MG CAP PO SCH (21:05)
[2016-09-18] MEDS: valACYclovir HCL 500 MG TAB PO PRN (21:58)
[2016-09-18] MEDS: hydrOXYzine 50 MG TAB PO PRN (21:58)
[2016-09-18] MEDS: traZODone 100 MG TAB PO PRN (21:58)
[2016-09-19 06:48] VITALS: BP 118/59
[2016-09-19] MEDS: buPROPion 75 MG TAB PO SCH (08:44)
[2016-09-19] MEDS: busPIRone 5 MG TAB PO SCH ×3 (08:44→21:10)
[2016-09-19] MEDS: IBUPROFEN 800 MG TAB PO PRN (08:45)
[2016-09-19] MEDS: valACYclovir HCL 500 MG TAB PO PRN (08:46)
[2016-09-19] MEDS: hydrOXYzine 25 MG TAB PO PRN (12:05)
--- NOTE | 2016-09-19 14:03 | MHIPNPDOC ---
[facility] Progress Note Progress Note DATE OF SERVICE: 09/19/16 HISTORY: day 7 of admission for Anxiety following Tylenol overdose VITAL SIGNS: See below. NEW TEST RESULTS: na CURRENT MEDICATIONS: See below. MENTAL STATUS EXAMINATION: Patient is a -36 year old male, who is wearing shorts and a long-sleeved, striped shirt, good grooming and hygiene, smiles easily, good eye contact. Speech: Is spontaneous and clear Language skills are intact Thought processes including: linear, goal directed Thought content: appropriate Abstract reasoning, and computation: good. Description of associations:good. Description of abnormal or psychotic thoughts: no SI. no HI. No delusions. no altered visual or auditory perceptions. Judgment: good. Insight: good. Orientation: well oriented to time, place, person and situation. Recent and remote memory: intact Attention span and concentration: good Fund of knowledge: full. Mood:anxious. Affect: congruent. DIAGNOSES: Generalized Anxiety disorder Alcohol abuse Intermittent Insomnia ARTURO A-fib ASSESSMENT:met with Eliecer for 1:1 today. He was able to speak to his yesterday who called him as she was looking for something. The conversation did not go well he stated. They argued. He stated she told him he has bipolar disorder. Eliecer remains committed to any treatment recommendations made by junior technical writer. he is hoping to involve his in his recovery plans. He is interested in a program that will help them repair their marriage and improve their communication. He is willing to do substance abuse treatment. Pt is visible in the milieu. He is respectful and kind towards others. He is eating well without any GI problems. 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 with regard to med changes to improve sleep, Eliecer reports he did have a better night sleep last night but it is too soon after only one dose to say we have resolved the issue. He will continue receiving the trazodone and the hydroxyzine together at . Eliecer denies having a headache or migraine since the sertraline was stopped. H eis reporting some lower back pain and what sounds like sciatica. We discussed positional changes he could use to help relieve pressure on the sciatic nerve. MANAGEMENT PLAN: according to 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 No further medication changes needed at this time. Will continue to monitor response to sleep aides and use CPAP. CDP will contact and speak to her about Eliecer. We will listen to her understanding of she thinks is going on with him. TIME SPENT: 25minutes. Vital Signs Vital Signs Date Time Temp Pulse Resp B/P (MAP) Pulse Ox O2 Delivery O2 Flow Rate FiO2 09/19/16 06:48 98.1 55 18 118/59 (78) Room Air Current Medications Current Medications Al Hydrox/Mg Hydrox/Simethicone (Mylanta) 30 ml Q4HP PRN PO HEARTBURN/ INDIGESTION Last administered on 09/16/16 17:47; Start 09/13/16 at 18:00; Stop 10/13/16 at 17:59 Bupropion HCl (Wellbutrin) 75 mg QAM PO Last administered on 09/19/16 08:44; Start 09/15/16 at 09:00; Stop 10/15/16 at 08:59 Buspirone HCl (Buspar) 10 mg TID PO Last administered on 09/18/16 08:21; Start 09/14/16 at 09:00; Stop 09/18/16 at 11:01; Status DC Buspirone HCl (Buspar) 15 mg TID PO Last administered on 09/19/16 08:44; Start 09/18/16 at 16:00; Stop 10/18/16 at 15:59 Flecainide Acetate (Tambocor) 100 mg DAILY PO ; Start 09/14/16 at 09:00; Stop at 09:00; Status DC Haloperidol (Haldol) 5 mg Q6HP PRN PO ANXIETY/AGITATION; Start 09/13/16 at 18: 00; Stop 10/13/16 at 17:59; Status Cancel Hydroxyzine HCl (Atarax) 25 mg Q6HP PRN PO ANXIETY Last administered on 12:05; Start 09/14/16 at 09:45; Stop 10/14/16 at 09:44 Hydroxyzine HCl (Atarax) 100 mg QHS PRN PO insomnia Last administered on 21:58; Start 09/17/16 at 21:00; Stop 10/17/16 at 20:59 Ibuprofen (Advil) 400 mg Q6HP PRN PO PAIN; Start 09/13/16 at 18:00; Stop at 17:59 Ibuprofen (Advil) 800 mg Q6HP PRN PO MODERATE PAIN (PS 5-7) Last administered on 09/19/16 08:45; Start 09/14/16 at 04:00; Stop 10/14/16 at 03:59 Magnesium Hydroxide (Milk Of Magnesia) 30 ml DAILYPRN PRN PO CONSTIPATION; Start 09/13/16 at 18:00; Stop 10/13/16 at 17:59 Prazosin HCl (Minipress) 1 mg QHS PO Last administered on 09/18/16 21:05; Start 09/13/16 at 21:00; Stop 10/13/16 at 20:59 Quetiapine Fumarate (SEROquel) 50 mg Q8HP PRN PO ANXIETY/AGITATION; Start 09/14 at 08:30; Stop 09/16/16 at 12:18; Status DC Rizatriptan Benzoate (Maxalt) 5 mg DAILYPRN PRN PO MIGRAINE Last administered on 09/15/16 13:33; Start 09/13/16 at 18:00; Stop 10/13/16 at 17:59 Sertraline HCl (Zoloft) 25 mg QAM PO Last administered on 09/17/16 08:44; Start 09/15/16 at 09:00; Stop 09/17/16 at 10:01; Status DC Sertraline HCl (Zoloft) 50 mg DAILY PO Last administered on 09/14/16 08:32; Start 09/14/16 at 09:00; Stop 09/14/16 at 10:55; Status DC Trazodone HCl (Desyrel) 100 mg QHS PRN PO INSOMNIA Last administered on 21:58; Start 09/17/16 at 21:00; Stop 10/17/16 at 20:59 Trazodone HCl (Desyrel) 100 mg QHSP PRN PO INSOMNIA Last administered on 22:34; Start 09/13/16 at 18:00; Stop 09/16/16 at 12:18; Status DC Trazodone HCl (Desyrel) 150 mg QHS PO Last administered on 09/16/16 21:50; Start 09/16/16 at 21:00; Stop 09/17/16 at 11:08; Status DC Valacyclovir HCl (Valtrex) 1,000 mg BID PRN PO cold sores Last administered on 09/19/16 08:46; Start 09/13/16 at 18:00; Stop 09/20/16 at 17:59 Allergies Coded Allergies: Amoxicillin (Unverified Allergy, Unknown, [employer] , 06/28/16) Anabela Crow Sep 19, 2016 14:03
[2016-09-19 18:00] VITALS: BP 139/86
[2016-09-19] MEDS: hydrOXYzine 50 MG TAB PO PRN (21:09)
[2016-09-19] MEDS: traZODone 100 MG TAB PO PRN (21:10)
[2016-09-19] MEDS: PRAZOSIN 1 MG CAP PO SCH (21:10)
[2016-09-20 06:19] VITALS: BP 143/78
[2016-09-20] MEDS: busPIRone 5 MG TAB PO SCH ×3 (08:21→21:59)
[2016-09-20] MEDS: buPROPion 75 MG TAB PO SCH (08:21)
[2016-09-20] MEDS: IBUPROFEN 800 MG TAB PO PRN ×2 (08:22→22:00)
[2016-09-20] MEDS: hydrOXYzine 25 MG TAB PO PRN ×2 (09:39→15:10)
--- NOTE | 2016-09-20 15:03 | MHIPNPDOC ---
[facility] Progress Note Progress Note DATE OF SERVICE: 09/20/16 HISTORY: day 8 of admission. pt admitted following Tylenol overdose VITAL SIGNS: See below. NEW TEST RESULTS: na CURRENT MEDICATIONS: See below. MENTAL STATUS EXAMINATION: Patient is a 36-year old male, who is casually attired in street clothes, wearing flip flops, clean, makes good eye contact, pleasant and cooperative. Speech: Is spontaneous and clear Language skills are good. Thought processes including: linear Thought content: appropriate Abstract reasoning, and computation: good. Description of associations: good. Description of abnormal or psychotic thoughts: no psychotic symptoms, no si or hi. Judgment: good Insight: good. Orientation: well oriented in all spheres. Recent and remote memory: intact. Attention span and concentration: adequate. Fund of knowledge: full. Mood: anxious. Affect: congruent DIAGNOSES ASSESSMENT:pt attended team conference this morning to discuss tx goals and discharge planning. He agrees with the plans. He also attended the TROY hearing at 2 p.m. today along with his , Wero. His is very angry which was conveyed by her affect and her lack of eye contact. She says she cannot pack up his belongs so he can take them to [facility]. She says she is not sure where the things are that he needs. We offered a pass to allow Eliecer to do his packing and she also let us know that Eliecer needs to sign legal documents at the attorneys office regarding the sale of their home. We can make the pass long enough on one day to accomplish all these things. Eliecer's captain was present at the meeting along with regulo Gutierrez. The [employer] will provide an escort for the pass as well as for transport to [place]. We expect that Eliecer's discharge will take place on Saturday this week but no definite day and time has been given from [facility] yet. Josseline continues to take medication and is showing signs of improvement in mood and anxiety. These types of meetings are very hard especially when the couples are not on good speaking terms. These 2 need a great deal of help with verbal communication. Wero told Eliecer she has asked him for 15 years to get help. He says he tried 3 years ago but only he went to counseling. Wero says she "does not have time" to go to counseling due to her job and child welfare assistant duties. She also explained that is very hard on Eliecer's son when Eliecer is deployed and gone for months at a time. She does not want to upset the children again and does not plan to be home when Eliecer goes for his things. She also refused to bring the children in for a visit so Eliecer could see the children before [facility]. MANAGEMENT PLAN: continue meds, sleep is better with current regime, continue observation. provide pt with ways to vent his unhappiness with his current marital situation. Offer support. Monitor medication effectiveness. Pass written for Saturday09/24/16 for 6 hours so pt can sign paperwork at united states attorney's office and pack his belongings he needs from home for his transfer to [place]. TIME SPENT: 45 minutes. Vital Signs Vital Signs Date Time Temp Pulse Resp B/P (MAP) Pulse Ox O2 Delivery O2 Flow Rate FiO2 09/20/16 06:19 97.9 55 18 143/78 (99) 09/19/16 06:48 Room Air Current Medications Current Medications Al Hydrox/Mg Hydrox/Simethicone (Mylanta) 30 ml Q4HP PRN PO HEARTBURN/ INDIGESTION Last administered on 09/16/16 17:47; Start 09/13/16 at 18:00; Stop 10/13/16 at 17:59 Bupropion HCl (Wellbutrin) 75 mg QAM PO Last administered on 09/20/16 08:21; Start 09/15/16 at 09:00; Stop 10/15/16 at 08:59 Buspirone HCl (Buspar) 10 mg TID PO Last administered on 09/18/16 08:21; Start 09/14/16 at 09:00; Stop 09/18/16 at 11:01; Status DC Buspirone HCl (Buspar) 15 mg TID PO Last administered on 09/20/16 08:21; Start 09/18/16 at 16:00; Stop 10/18/16 at 15:59 Flecainide Acetate (Tambocor) 100 mg DAILY PO ; Start 09/14/16 at 09:00; Stop at 09:00; Status DC Haloperidol (Haldol) 5 mg Q6HP PRN PO ANXIETY/AGITATION; Start 09/13/16 at 18: 00; Stop 10/13/16 at 17:59; Status Cancel Hydroxyzine HCl (Atarax) 25 mg Q6HP PRN PO ANXIETY Last administered on 09:39; Start 09/14/16 at 09:45; Stop 10/14/16 at 09:44 Hydroxyzine HCl (Atarax) 100 mg QHS PRN PO insomnia Last administered on 21:09; Start 09/17/16 at 21:00; Stop 10/17/16 at 20:59 Ibuprofen (Advil) 400 mg Q6HP PRN PO PAIN Last administered on 09/19/16 21:10; Start 09/13/16 at 18:00; Stop 10/13/16 at 17:59 Ibuprofen (Advil) 800 mg Q6HP PRN PO MODERATE PAIN (PS 5-7) Last administered on 09/20/16 08:22; Start 09/14/16 at 04:00; Stop 10/14/16 at 03:59 Magnesium Hydroxide (Milk Of Magnesia) 30 ml DAILYPRN PRN PO CONSTIPATION; Start 09/13/16 at 18:00; Stop 10/13/16 at 17:59 Prazosin HCl (Minipress) 1 mg QHS PO Last administered on 09/19/16 21:10; Start 09/13/16 at 21:00; Stop 10/13/16 at 20:59 Quetiapine Fumarate (SEROquel) 50 mg Q8HP PRN PO ANXIETY/AGITATION; Start 09/14 at 08:30; Stop 09/16/16 at 12:18; Status DC Rizatriptan Benzoate (Maxalt) 5 mg DAILYPRN PRN PO MIGRAINE Last administered on 09/15/16 13:33; Start 09/13/16 at 18:00; Stop 10/13/16 at 17:59 Sertraline HCl (Zoloft) 25 mg QAM PO Last administered on 09/17/16 08:44; Start 09/15/16 at 09:00; Stop 09/17/16 at 10:01; Status DC Sertraline HCl (Zoloft) 50 mg DAILY PO Last administered on 09/14/16 08:32; Start 09/14/16 at 09:00; Stop 09/14/16 at 10:55; Status DC Trazodone HCl (Desyrel) 100 mg QHS PRN PO INSOMNIA Last administered on 21:10; Start 09/17/16 at 21:00; Stop 10/17/16 at 20:59 Trazodone HCl (Desyrel) 100 mg QHSP PRN PO INSOMNIA Last administered on 22:34; Start 09/13/16 at 18:00; Stop 09/16/16 at 12:18; Status DC Trazodone HCl (Desyrel) 150 mg QHS PO Last administered on 09/16/16 21:50; Start 09/16/16 at 21:00; Stop 09/17/16 at 11:08; Status DC Valacyclovir HCl (Valtrex) 1,000 mg BID PRN PO cold sores Last administered on 09/19/16 08:46; Start 09/13/16 at 18:00; Stop 09/20/16 at 17:59 Allergies Coded Allergies: Amoxicillin (Unverified Allergy, Unknown, [employer] , 06/28/16) Anabela Crow Sep 20, 2016 15:03
[2016-09-20 18:06] VITALS: BP 136/64
[2016-09-20] MEDS: PRAZOSIN 1 MG CAP PO SCH (22:00)
[2016-09-20] MEDS: traZODone 100 MG TAB PO PRN (22:31)
[2016-09-20] MEDS: hydrOXYzine 50 MG TAB PO PRN (22:32)
[2016-09-21 06:14] VITALS: BP 125/68
[2016-09-21] MEDS: buPROPion 75 MG TAB PO SCH (08:50)
[2016-09-21] MEDS: busPIRone 5 MG TAB PO SCH ×3 (08:50→21:10)
--- NOTE | 2016-09-21 11:03 | MHIPNPDOC ---
[facility] Progress Note Progress Note DATE OF SERVICE: 09/21/16 HISTORY:day 9 of admission following Tylenol overdose and suicide ideation VITAL SIGNS: See below. NEW TEST RESULTS: na CURRENT MEDICATIONS: See below. 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 Speech: Is clear and spontaneous. Language skills are good Thought processes including: goal directed and linear Thought content: appropriate. Abstract reasoning, and computation: good. Description of associations: good. Description of abnormal or psychotic thoughts: pt denies SI or desire to be . He denies plan or intent of self-harm. He denies psychotic symptoms and none are observed. Judgment: good. Insight: good. Orientation: well oriented in all spheres. Recent and remote memory: intact Attention span and concentration: good. Fund of knowledge: full Mood: anxious, depressed. Affect: congruent. DIAGNOSES: Generalized Anxiety disorder Alcohol abuse Intermittent Insomnia ARTURO A-fib ASSESSMENT:pt reports nightmare of combat last night. he is preparing for his transfer to [place] and has 2 lists that he takes with him everywhere. He informs advertising copywriter that his will bring in the children today at 11 so advertising copywriter scrambled to facilitate this as we have only one room available that is suitable for children. An order was written for a 1 hour visit in the quiet group room. Eliecer continues to improve and he is scoring his anxiety in the 2-3 range out of 10 versus higher scores last week and earlier this week. Following the TROY meeting yesterday his returned and they were able to talk more therapeutically to each other. This is when she told him she would bring the children in to see him before he leaves for [place]. He was very relieved about this. Met with pt later in the day following his visit with the children. He stated it went well and he enjoyed it. He said he and his discussed the pass for Saturday to make it easier for him to complete all the tasks he is trying to accomplish prior to leaving for long-term care. He is aware that his escort will arrive Saturday at 10 a.m. Eliecer is due back at 4 p.m and has the unit phone number to call if he is running even 10-15 mins late. He was asked to call immediately if he was going to be late. He is not a risk at this time to himself or others. We are hopeful his bed at [facility] will be available Saturday or Saturday. MANAGEMENT PLAN: continue meds of wellbutrin, buspar, atarax. Increase prazosin to 2 mg at hs for nightmares and monitor for effectiveness. TIME SPENT: 25 minutes. Vital Signs Vital Signs Date Time Temp Pulse Resp B/P (MAP) Pulse Ox O2 Delivery O2 Flow Rate FiO2 09/21/16 06:14 99.0 60 16 125/68 (87) 09/19/16 06:48 Room Air Current Medications Current Medications Al Hydrox/Mg Hydrox/Simethicone (Mylanta) 30 ml Q4HP PRN PO HEARTBURN/ INDIGESTION Last administered on 09/16/16 17:47; Start 09/13/16 at 18:00; Stop 10/13/16 at 17:59 Bupropion HCl (Wellbutrin) 75 mg QAM PO Last administered on 09/21/16 08:50; Start 09/15/16 at 09:00; Stop 10/15/16 at 08:59 Buspirone HCl (Buspar) 10 mg TID PO Last administered on 09/18/16 08:21; Start 09/14/16 at 09:00; Stop 09/18/16 at 11:01; Status DC Buspirone HCl (Buspar) 15 mg TID PO Last administered on 09/21/16 08:50; Start 09/18/16 at 16:00; Stop 10/18/16 at 15:59 Flecainide Acetate (Tambocor) 100 mg DAILY PO ; Start 09/14/16 at 09:00; Stop at 09:00; Status DC Haloperidol (Haldol) 5 mg Q6HP PRN PO ANXIETY/AGITATION; Start 09/13/16 at 18: 00; Stop 10/13/16 at 17:59; Status Cancel Hydroxyzine HCl (Atarax) 25 mg Q6HP PRN PO ANXIETY Last administered on 15:10; Start 09/14/16 at 09:45; Stop 10/14/16 at 09:44 Hydroxyzine HCl (Atarax) 100 mg QHS PRN PO insomnia Last administered on 22:32; Start 09/17/16 at 21:00; Stop 10/17/16 at 20:59 Ibuprofen (Advil) 400 mg Q6HP PRN PO PAIN Last administered on 09/19/16 21:10; Start 09/13/16 at 18:00; Stop 10/13/16 at 17:59 Ibuprofen (Advil) 800 mg Q6HP PRN PO MODERATE PAIN (PS 5-7) Last administered on 09/20/16 22:00; Start 09/14/16 at 04:00; Stop 10/14/16 at 03:59 Magnesium Hydroxide (Milk Of Magnesia) 30 ml DAILYPRN PRN PO CONSTIPATION; Start 09/13/16 at 18:00; Stop 10/13/16 at 17:59 Prazosin HCl (Minipress) 1 mg QHS PO Last administered on 09/20/16 22:00; Start 09/13/16 at 21:00; Stop 09/21/16 at 09:41; Status DC Prazosin HCl (Minipress) 2 mg QHS PO ; Start 09/21/16 at 21:00; Stop 10/21/16 at 20:59 Quetiapine Fumarate (SEROquel) 50 mg Q8HP PRN PO ANXIETY/AGITATION; Start 09/14 at 08:30; Stop 09/16/16 at 12:18; Status DC Rizatriptan Benzoate (Maxalt) 5 mg DAILYPRN PRN PO MIGRAINE Last administered on 09/15/16 13:33; Start 09/13/16 at 18:00; Stop 10/13/16 at 17:59 Sertraline HCl (Zoloft) 25 mg QAM PO Last administered on 09/17/16 08:44; Start 09/15/16 at 09:00; Stop 09/17/16 at 10:01; Status DC Sertraline HCl (Zoloft) 50 mg DAILY PO Last administered on 09/14/16 08:32; Start 09/14/16 at 09:00; Stop 09/14/16 at 10:55; Status DC Trazodone HCl (Desyrel) 100 mg QHS PRN PO INSOMNIA Last administered on 22:31; Start 09/17/16 at 21:00; Stop 10/17/16 at 20:59 Trazodone HCl (Desyrel) 100 mg QHSP PRN PO INSOMNIA Last administered on 22:34; Start 09/13/16 at 18:00; Stop 09/16/16 at 12:18; Status DC Trazodone HCl (Desyrel) 150 mg QHS PO Last administered on 09/16/16 21:50; Start 09/16/16 at 21:00; Stop 09/17/16 at 11:08; Status DC Valacyclovir HCl (Valtrex) 1,000 mg BID PRN PO cold sores Last administered on 09/19/16 08:46; Start 09/13/16 at 18:00; Stop 09/20/16 at 17:59; Status DC Allergies Coded Allergies: Amoxicillin (Unverified Allergy, Unknown, [employer] , 06/28/16) Anabela Crow Sep 21, 2016 11:03
[2016-09-21] MEDS: IBUPROFEN 800 MG TAB PO PRN (14:03)
[2016-09-21] MEDS: hydrOXYzine 25 MG TAB PO PRN (14:03)
[2016-09-21 18:00] VITALS: BP 132/64
[2016-09-21] MEDS: PRAZOSIN 1 MG CAP PO SCH (21:12)
[2016-09-21] MEDS: traZODone 100 MG TAB PO PRN (23:13)
[2016-09-21] MEDS: hydrOXYzine 50 MG TAB PO PRN (23:13)
[2016-09-22 06:40] VITALS: BP 123/58
[2016-09-22] MEDS: busPIRone 5 MG TAB PO SCH ×3 (08:53→20:09)
[2016-09-22] MEDS: buPROPion 75 MG TAB PO SCH (08:53)
[2016-09-22] MEDS: hydrOXYzine 25 MG TAB PO PRN (09:59)
[2016-09-22] MEDS: IBUPROFEN 800 MG TAB PO PRN ×2 (10:00→20:09)
[2016-09-22 18:00] VITALS: BP 135/78
[2016-09-22] MEDS ORDERED: valACYclovir HCL 500 MG TAB PO PRN (18:00)
[2016-09-22] MEDS: PRAZOSIN 1 MG CAP PO SCH (20:11)
[2016-09-22] MEDS: traZODone 100 MG TAB PO PRN (22:27)
[2016-09-22] MEDS: hydrOXYzine 50 MG TAB PO PRN (22:27)
[2016-09-23 06:44] VITALS: BP 141/75
[2016-09-23] MEDS: busPIRone 5 MG TAB PO SCH ×3 (08:47→20:53)
[2016-09-23] MEDS: IBUPROFEN 800 MG TAB PO PRN ×2 (08:47→20:53)
[2016-09-23] MEDS: buPROPion 75 MG TAB PO SCH (08:48)
[2016-09-23 18:00] VITALS: BP 158/77
[2016-09-23] MEDS: traZODone 100 MG TAB PO PRN (20:53)
[2016-09-23] MEDS: hydrOXYzine 50 MG TAB PO PRN (20:54)
[2016-09-23] MEDS: PRAZOSIN 1 MG CAP PO SCH (20:55)
[2016-09-24 06:35] VITALS: BP 135/75
[2016-09-24] MEDS: busPIRone 5 MG TAB PO SCH ×3 (08:27→21:25)
[2016-09-24] MEDS: hydrOXYzine 25 MG TAB PO PRN (08:28)
[2016-09-24] MEDS: IBUPROFEN 800 MG TAB PO PRN ×2 (08:28→21:26)
[2016-09-24] MEDS: buPROPion 75 MG TAB PO SCH (08:28)
--- NOTE | 2016-09-24 16:36 | MHIPNPDOC ---
[facility] Progress Note Progress Note DATE OF SERVICE: 09/24/16 HISTORY: day 12 of admission, following overdose on Tylenol VITAL SIGNS: See below. NEW TEST RESULTS: na. CURRENT MEDICATIONS: See below. MENTAL STATUS EXAMINATION: Patient is a 36-year old male, who is dressed appropriately in street clothes, well groomed, makes good eye contact, pleasant. Speech: Is clear Language skills are intact Thought processes including: goal directed Thought content: appropriate. Abstract reasoning, and computation: good. Description of associations: good. Description of abnormal or psychotic thoughts: pt denies perceptual disturbance , does not appear to respond to internal stim. Denies desire to harm self or others. No SI. Judgment: good Insight: good, . Orientation: oriented to time, place, person and situation Recent and remote memory: good Attention span and concentration: good. Fund of knowledge: full. Mood: anxious. Affect: anxious. DIAGNOSES: Generalized Anxiety disorder Alcohol abuse Intermittent Insomnia ARTURO A-fib ASSESSMENT:Pt anticipates preparation for LT care today but using pass hours to get required clothing and other articles for the trip to [place]. Pt in good spirits. Understands the duration of the pass and to call the unit if anticipates returning late. Pt reports good weekend. PO intake is good, attending to hygiene, socializing with peers. MANAGEMENT PLAN: continue observation when pt returns from pass, continue medications, monitor sleep, encourage attendance at groups. TIME SPENT: 15 minutes. Vital Signs Vital Signs Date Time Temp Pulse Resp B/P (MAP) Pulse Ox O2 Delivery O2 Flow Rate FiO2 09/24/16 06:35 97.3 54 16 135/75 (95) 09/19/16 06:48 Room Air Current Medications Current Medications Al Hydrox/Mg Hydrox/Simethicone (Mylanta) 30 ml Q4HP PRN PO HEARTBURN/ INDIGESTION Last administered on 09/16/16 17:47; Start 09/13/16 at 18:00; Stop 10/13/16 at 17:59 Bupropion HCl (Wellbutrin) 75 mg QAM PO Last administered on 09/24/16 08:28; Start 09/15/16 at 09:00; Stop 10/15/16 at 08:59 Buspirone HCl (Buspar) 10 mg TID PO Last administered on 09/18/16 08:21; Start 09/14/16 at 09:00; Stop 09/18/16 at 11:01; Status DC Buspirone HCl (Buspar) 15 mg TID PO Last administered on 09/24/16 08:27; Start 09/18/16 at 16:00; Stop 10/18/16 at 15:59 Flecainide Acetate (Tambocor) 100 mg DAILY PO ; Start 09/14/16 at 09:00; Stop at 09:00; Status DC Haloperidol (Haldol) 5 mg Q6HP PRN PO ANXIETY/AGITATION; Start 09/13/16 at 18: 00; Stop 10/13/16 at 17:59; Status Cancel Hydroxyzine HCl (Atarax) 25 mg Q6HP PRN PO ANXIETY Last administered on 08:28; Start 09/14/16 at 09:45; Stop 10/14/16 at 09:44 Hydroxyzine HCl (Atarax) 100 mg QHS PRN PO insomnia Last administered on 20:54; Start 09/17/16 at 21:00; Stop 10/17/16 at 20:59 Ibuprofen (Advil) 400 mg Q6HP PRN PO PAIN Last administered on 09/19/16 21:10; Start 09/13/16 at 18:00; Stop 10/13/16 at 17:59 Ibuprofen (Advil) 800 mg Q6HP PRN PO MODERATE PAIN (PS 5-7) Last administered on 09/24/16 08:28; Start 09/14/16 at 04:00; Stop 10/14/16 at 03:59 Magnesium Hydroxide (Milk Of Magnesia) 30 ml DAILYPRN PRN PO CONSTIPATION Last administered on 09/23/16 11:36; Start 09/13/16 at 18:00; Stop 10/13/16 at 17:59 Miscellaneous (Unresolved Clarification Entry) SEE LABEL COMMENTS UNRESOLVED XX ; Start 09/21/16 at 00:01; Stop 09/22/16 at 17:59; Status DC Prazosin HCl (Minipress) 1 mg QHS PO Last administered on 09/20/16 22:00; Start 09/13/16 at 21:00; Stop 09/21/16 at 09:41; Status DC Prazosin HCl (Minipress) 2 mg QHS PO Last administered on 09/23/16 20:55; Start 09/21/16 at 21:00; Stop 10/21/16 at 20:59 Quetiapine Fumarate (SEROquel) 50 mg Q8HP PRN PO ANXIETY/AGITATION; Start 09/14 at 08:30; Stop 09/16/16 at 12:18; Status DC Rizatriptan Benzoate (Maxalt) 5 mg DAILYPRN PRN PO MIGRAINE Last administered on 09/15/16 13:33; Start 09/13/16 at 18:00; Stop 10/13/16 at 17:59 Sertraline HCl (Zoloft) 25 mg QAM PO Last administered on 09/17/16 08:44; Start 09/15/16 at 09:00; Stop 09/17/16 at 10:01; Status DC Sertraline HCl (Zoloft) 50 mg DAILY PO Last administered on 09/14/16 08:32; Start 09/14/16 at 09:00; Stop 09/14/16 at 10:55; Status DC Trazodone HCl (Desyrel) 100 mg QHS PRN PO INSOMNIA Last administered on 20:53; Start 09/17/16 at 21:00; Stop 10/17/16 at 20:59 Trazodone HCl (Desyrel) 100 mg QHSP PRN PO INSOMNIA Last administered on 22:34; Start 09/13/16 at 18:00; Stop 09/16/16 at 12:18; Status DC Trazodone HCl (Desyrel) 150 mg QHS PO Last administered on 09/16/16 21:50; Start 09/16/16 at 21:00; Stop 09/17/16 at 11:08; Status DC Valacyclovir HCl (Valtrex) 1,000 mg BID PRN PO cold sores Last administered on 09/19/16 08:46; Start 09/13/16 at 18:00; Stop 09/20/16 at 17:59; Status DC Valacyclovir HCl (Valtrex) 1,000 mg BID PRN PO cold sores; Start 09/22/16 at 18: 00; Stop 09/29/16 at 17:59 Allergies Coded Allergies: Amoxicillin (Unverified Allergy, Unknown, [employer] , 06/28/16) Anabela Crow Sep 24, 2016 16:36
[2016-09-24 18:00] VITALS: BP 130/71
[2016-09-24] MEDS: PRAZOSIN 1 MG CAP PO SCH (21:25)
[2016-09-24] MEDS: traZODone 100 MG TAB PO PRN (22:51)
[2016-09-24] MEDS: hydrOXYzine 50 MG TAB PO PRN (22:51)
[2016-09-25 06:23] VITALS: BP 133/62
[2016-09-25] MEDS: buPROPion 75 MG TAB PO SCH (08:39)
[2016-09-25] MEDS: busPIRone 5 MG TAB PO SCH ×3 (08:39→20:36)
[2016-09-25] MEDS: IBUPROFEN 800 MG TAB PO PRN ×2 (08:39→15:36)
--- NOTE | 2016-09-25 13:57 | MHIPNPDOC ---
[facility] Progress Note Progress Note DATE OF SERVICE: 09/25/16 HISTORY: Day 13 of admission following overdose on Tylenol. VITAL SIGNS: See below. NEW TEST RESULTS: na CURRENT MEDICATIONS: See below. MENTAL STATUS EXAMINATION: Patient is a 36-year old male, who is dressed in street clothes, blonde, good eye contact, relaxed, laughs appropriately, pleasant. Speech: Is spontaneous Language skills are intact Thought processes including: goal directed. Thought content: appropriate. Abstract reasoning, and computation: good. Description of associations: good. Description of abnormal or psychotic thoughts: no psychotic symptoms reported or observed, pt is denying suicidal thinking, not homicidal. Judgment: good Insight: good, Orientation: oriented to time, place, person and surroundings Recent and remote memory: intact. Attention span and concentration: adequate. Fund of knowledge: full. Mood: euthymic. Affect: anxious. DIAGNOSES: Generalized Anxiety disorder Alcohol abuse Intermittent Insomnia ARTURO A-fib ASSESSMENT: met with Eliecer for 1:1, he was very busy on his pass. Not only did he get the items he needs for [place], but he took his son for a haircut and got one himself. He also hung up bedroom drapes for his . He was a few minutes late returning form [facility] but he called twice to keep the unit informed of his arrival and reasons for delay. Today Eliecer was observed attending programming, having lunch, interacting socially with others and attended treatment planning meeting. His discharge/ transfer was discussed. We continue to await confirmation by the [employer] that Eliecer will be escorted to [facility] in [place] tomorrow. MANAGEMENT PLAN: continue close observation, continue medications as prescribed , continue to monitor his response to medications, assist in preparation for discharge. The [facility] was informed that we must have discharge arrangements in place prior to 4 p.m. today if they plan to transport him tomorrow, otherwise he will not be going. TIME SPENT: 15 minutes. Vital Signs Vital Signs Date Time Temp Pulse Resp B/P (MAP) Pulse Ox O2 Delivery O2 Flow Rate FiO2 09/25/16 06:23 98.5 74 18 133/62 (85) 09/19/16 06:48 Room Air Current Medications Current Medications Al Hydrox/Mg Hydrox/Simethicone (Mylanta) 30 ml Q4HP PRN PO HEARTBURN/ INDIGESTION Last administered on 09/16/16 17:47; Start 09/13/16 at 18:00; Stop 10/13/16 at 17:59 Bupropion HCl (Wellbutrin) 75 mg QAM PO Last administered on 09/25/16 08:39; Start 09/15/16 at 09:00; Stop 10/15/16 at 08:59 Buspirone HCl (Buspar) 10 mg TID PO Last administered on 09/18/16 08:21; Start 09/14/16 at 09:00; Stop 09/18/16 at 11:01; Status DC Buspirone HCl (Buspar) 15 mg TID PO Last administered on 09/25/16 08:39; Start 09/18/16 at 16:00; Stop 10/18/16 at 15:59 Flecainide Acetate (Tambocor) 100 mg DAILY PO ; Start 09/14/16 at 09:00; Stop at 09:00; Status DC Haloperidol (Haldol) 5 mg Q6HP PRN PO ANXIETY/AGITATION; Start 09/13/16 at 18: 00; Stop 10/13/16 at 17:59; Status Cancel Hydroxyzine HCl (Atarax) 25 mg Q6HP PRN PO ANXIETY Last administered on 08:28; Start 09/14/16 at 09:45; Stop 10/14/16 at 09:44 Hydroxyzine HCl (Atarax) 100 mg QHS PRN PO insomnia Last administered on 22:51; Start 09/17/16 at 21:00; Stop 09/25/16 at 09:13; Status DC Ibuprofen (Advil) 400 mg Q6HP PRN PO PAIN Last administered on 09/19/16 21:10; Start 09/13/16 at 18:00; Stop 10/13/16 at 17:59 Ibuprofen (Advil) 800 mg Q6HP PRN PO MODERATE PAIN (PS 5-7) Last administered on 09/25/16 08:39; Start 09/14/16 at 04:00; Stop 10/14/16 at 03:59 Magnesium Hydroxide (Milk Of Magnesia) 30 ml DAILYPRN PRN PO CONSTIPATION Last administered on 09/23/16 11:36; Start 09/13/16 at 18:00; Stop 10/13/16 at 17:59 Miscellaneous (Unresolved Clarification Entry) SEE LABEL COMMENTS UNRESOLVED XX ; Start 09/21/16 at 00:01; Stop 09/22/16 at 17:59; Status DC Prazosin HCl (Minipress) 1 mg QHS PO Last administered on 09/20/16 22:00; Start 09/13/16 at 21:00; Stop 09/21/16 at 09:41; Status DC Prazosin HCl (Minipress) 2 mg QHS PO Last administered on 09/24/16 21:25; Start 09/21/16 at 21:00; Stop 10/21/16 at 20:59 Quetiapine Fumarate (SEROquel) 50 mg Q8HP PRN PO ANXIETY/AGITATION; Start 09/14 at 08:30; Stop 09/16/16 at 12:18; Status DC Rizatriptan Benzoate (Maxalt) 5 mg DAILYPRN PRN PO MIGRAINE Last administered on 09/15/16 13:33; Start 09/13/16 at 18:00; Stop 10/13/16 at 17:59 Sertraline HCl (Zoloft) 25 mg QAM PO Last administered on 09/17/16 08:44; Start 09/15/16 at 09:00; Stop 09/17/16 at 10:01; Status DC Sertraline HCl (Zoloft) 50 mg DAILY PO Last administered on 09/14/16 08:32; Start 09/14/16 at 09:00; Stop 09/14/16 at 10:55; Status DC Trazodone HCl (Desyrel) 100 mg QHS PRN PO INSOMNIA Last administered on 22:51; Start 09/17/16 at 21:00; Stop 09/25/16 at 09:13; Status DC Trazodone HCl (Desyrel) 100 mg QHSP PRN PO INSOMNIA Last administered on 22:34; Start 09/13/16 at 18:00; Stop 09/16/16 at 12:18; Status DC Trazodone HCl (Desyrel) 150 mg QHS PO ; Start 09/25/16 at 21:00; Stop 10/25/16 at 20:59 Trazodone HCl (Desyrel) 150 mg QHS PO Last administered on 09/16/16 21:50; Start 09/16/16 at 21:00; Stop 09/17/16 at 11:08; Status DC Valacyclovir HCl (Valtrex) 1,000 mg BID PRN PO cold sores Last administered on 09/19/16 08:46; Start 09/13/16 at 18:00; Stop 09/20/16 at 17:59; Status DC Valacyclovir HCl (Valtrex) 1,000 mg BID PRN PO cold sores; Start 09/22/16 at 18: 00; Stop 09/29/16 at 17:59 Allergies Coded Allergies: Amoxicillin (Unverified Allergy, Unknown, [employer] , 06/28/16) Anabela Crow Sep 25, 2016 13:57
[2016-09-25] MEDS: hydrOXYzine 25 MG TAB PO PRN (15:36)
[2016-09-25 18:00] VITALS: BP 137/68
[2016-09-25] MEDS: PRAZOSIN 1 MG CAP PO SCH (20:36)
[2016-09-25] MEDS: traZODone 50 MG TAB PO SCH (21:00)
[2016-09-26] MEDS ORDERED: hydrOXYzine 25 MG TAB PO SCH
[2016-09-26] MEDS ORDERED: busPIRone 5 MG TAB PO SCH
[2016-09-26 06:16] VITALS: BP 123/60
[2016-09-26] MEDS ORDERED: AZITHROMYCIN 250 MG TAB PO ONE (09:00)
--- NOTE | 2016-09-26 09:32 | IPNPDOC ---
Date Seen The patient was seen on 09/26/16. Progress Note SUBJECTIVE: Patient is a 36-year-old Male admitted to [facility] with SI, depression. Requested to evaluate for left ear pain. The patient states he has had tubes in the past and is known to have a history of ear infection. He states he is allergic to amoxicillin but Zithromax typically works for him. He states for the past 1-2 days he has been experiencing popping sounds in the left ear with pressure in the left ear. Some aching inside the left ear. He denies any radiation of pain to the outer aspect of the ear, no drainage, no fevers, no chills. Denies sore throat or rhinorrhea. OBJECTIVE PHYSICAL EXAMINATION: VITAL SIGNS: Please see below. GENERAL: No acute distress. Pleasant. HEENT: NC/AT. PERRLA. Nasal passages without erythema or discharge. Pharynx without erythema or exudate. Right TM is visualized with no abnormality noted. Left TM noted mild bulging with purulent fluid noted. CARDIOVASCULAR: S1-S2 regular rate and rhythm.. RESPIRATORY: Clear to auscultation. ABDOMINAL: No tenderness with palpation. Normal bowel sounds. EXTREMITIES: No edema DVT prophylaxis: Pt ambulatory ASSESSMENT AND PLAN: Patient is a 36-year-old Male admitted to [facility] with SI, depression. PROBLEMS: 1. Left otitis media. Add Zithromax 500 mg by mouth 1 today then 250 mg by mouth daily. Add Flonase daily. Tylenol as needed. DISPOSITION: as per psychiatry. VS, I&O, 24H, Fishbone Vital Signs/I&O Vital Signs Date Time Temp Pulse Resp B/P (MAP) Pulse Ox O2 Delivery O2 Flow Rate FiO2 09/26/16 06:16 97.9 90 18 123/60 (81) Geneva Mckeon Sep 26, 2016 09:32
[2016-09-26] MEDS: busPIRone 5 MG TAB PO SCH ×3 (09:38→21:34)
[2016-09-26] MEDS: buPROPion 75 MG TAB PO SCH (09:39)
[2016-09-26] MEDS ORDERED: hydrOXYzine 25 MG TAB PO PRN (10:00)
[2016-09-26] MEDS: FLUTICASONE PROP 0.05% NASAL SPRAY 16 GM (FLONASE) SCH (13:01)
--- NOTE | 2016-09-26 13:24 | MHIPNPDOC ---
[facility] Progress Note Progress Note DATE OF SERVICE: 09/26/16 HISTORY: Day 14 of admission following overdose on Tylenol. VITAL SIGNS: See below. NEW TEST RESULTS: na. CURRENT MEDICATIONS: See below. MENTAL STATUS EXAMINATION: Patient is a 36-year old male, who is dressed in street clothes, blonde, good eye contact, relaxed, laughs appropriately, pleasant. Speech: Is spontaneous Language skills are intact Thought processes including: goal directed. Thought content: appropriate. Abstract reasoning, and computation: good. Description of associations: good. Description of abnormal or psychotic thoughts: no psychotic symptoms reported or observed, pt is denying suicidal thinking, not homicidal. Judgment: good Insight: good, Orientation: oriented to time, place, person and surroundings Recent and remote memory: intact. Attention span and concentration: adequate. Fund of knowledge: full. Mood: euthymic. Affect: anxious. DIAGNOSES: Generalized Anxiety disorder Alcohol abuse Intermittent Insomnia ARTURO A-fib ASSESSMENT:Eliecer is coping well with his extended stay on our unit. He feels ready to pursue his next phase of treatment. He is hopeful he can remain with his and children and that things will change for the better after his time in [place]. He is motivated. He is calm and in control. Denies panic or excessive worry or anxiety. He is looking forward to the future with optimism. He is aware that Buspar and Atarax are available for him at the pharmacy for his trip. Today, Eliecer continues to attend therapeutic programming. He is observed interacting appropriately with peers. He asked to see the PA today for a c/o water in his ear. He was started on a Z-pac with one dose taken today. This needs to be continued for him in [place]. Eliecer reports he fell asleep on his own last night without the trazodone and slept well, even dreaming, for 5.5 hours. MANAGEMENT PLAN: Plan is that Eliecer will be escorted by [employer] personnel around 9 a.m. on [place]27 to [place] in [place] for a flight to [facility] in [place]. TIME SPENT: 15 minutes. Vital Signs Vital Signs Date Time Temp Pulse Resp B/P (MAP) Pulse Ox O2 Delivery O2 Flow Rate FiO2 09/26/16 06:16 97.9 90 18 123/60 (81) Current Medications Current Medications Al Hydrox/Mg Hydrox/Simethicone (Mylanta) 30 ml Q4HP PRN PO HEARTBURN/ INDIGESTION Last administered on 09/16/16 17:47; Start 09/13/16 at 18:00; Stop 10/13/16 at 17:59 Azithromycin (Zithromax Tab) 250 mg DAILY PO ; Start 09/27/16 at 09:00; Stop at 11:00 Bupropion HCl (Wellbutrin) 75 mg QAM PO Last administered on 09/26/16 09:39; Start 09/15/16 at 09:00; Stop 10/15/16 at 08:59 Buspirone HCl (Buspar) 10 mg TID PO Last administered on 09/18/16 08:21; Start 09/14/16 at 09:00; Stop 09/18/16 at 11:01; Status DC Buspirone HCl (Buspar) 15 mg BID@1600,2100 PO ; Start 09/26/16 at 00:00; Stop at 10:11; Status DC Buspirone HCl (Buspar) 15 mg TID PO Last administered on 09/26/16 09:38; Start 09/18/16 at 16:00; Stop 10/18/16 at 15:59 Flecainide Acetate (Tambocor) 100 mg DAILY PO ; Start 09/14/16 at 09:00; Stop at 09:00; Status DC Fluticasone Propionate (Flonase 0.05% Nasal [place]) 2 spray DAILY NA Last administered on 09/26/16 13:01; Start 09/26/16 at 09:00; Stop 10/26/16 at 08:59 Haloperidol (Haldol) 5 mg Q6HP PRN PO ANXIETY/AGITATION; Start 09/13/16 at 18: 00; Stop 10/13/16 at 17:59; Status Cancel Hydroxyzine HCl (Atarax) 25 mg Q6HP PO ; Start 09/26/16 at 00:00; Stop 09/26/16 at 10:27; Status DC Hydroxyzine HCl (Atarax) 25 mg Q6HP PRN PO ANXIETY Last administered on 15:36; Start 09/14/16 at 09:45; Stop 10/14/16 at 09:44 Hydroxyzine HCl (Atarax) 25 mg Q6HP PRN PO ANXIETY; Start 09/26/16 at 10:00; Stop 10/26/16 at 09:59; Status UNV Hydroxyzine HCl (Atarax) 100 mg QHS PRN PO insomnia Last administered on 22:51; Start 09/17/16 at 21:00; Stop 09/25/16 at 09:13; Status DC Ibuprofen (Advil) 400 mg Q6HP PRN PO PAIN Last administered on 09/19/16 21:10; Start 09/13/16 at 18:00; Stop 10/13/16 at 17:59 Ibuprofen (Advil) 800 mg Q6HP PRN PO MODERATE PAIN (PS 5-7) Last administered on 09/25/16 15:36; Start 09/14/16 at 04:00; Stop 10/14/16 at 03:59 Magnesium Hydroxide (Milk Of Magnesia) 30 ml DAILYPRN PRN PO CONSTIPATION Last administered on 09/23/16 11:36; Start 09/13/16 at 18:00; Stop 10/13/16 at 17:59 Miscellaneous (Unresolved Clarification Entry) SEE LABEL COMMENTS UNRESOLVED XX ; Start 09/21/16 at 00:01; Stop 09/22/16 at 17:59; Status DC Prazosin HCl (Minipress) 1 mg QHS PO Last administered on 09/20/16 22:00; Start 09/13/16 at 21:00; Stop 09/21/16 at 09:41; Status DC Prazosin HCl (Minipress) 2 mg QHS PO Last administered on 09/25/16 20:36; Start 09/21/16 at 21:00; Stop 10/21/16 at 20:59 Quetiapine Fumarate (SEROquel) 50 mg Q8HP PRN PO ANXIETY/AGITATION; Start 09/14 at 08:30; Stop 09/16/16 at 12:18; Status DC Rizatriptan Benzoate (Maxalt) 5 mg DAILYPRN PRN PO MIGRAINE Last administered on 09/15/16 13:33; Start 09/13/16 at 18:00; Stop 10/13/16 at 17:59 Sertraline HCl (Zoloft) 25 mg QAM PO Last administered on 09/17/16 08:44; Start 09/15/16 at 09:00; Stop 09/17/16 at 10:01; Status DC Sertraline HCl (Zoloft) 50 mg DAILY PO Last administered on 09/14/16 08:32; Start 09/14/16 at 09:00; Stop 09/14/16 at 10:55; Status DC Trazodone HCl (Desyrel) 100 mg QHS PRN PO INSOMNIA Last administered on 22:51; Start 09/17/16 at 21:00; Stop 09/25/16 at 09:13; Status DC Trazodone HCl (Desyrel) 100 mg QHSP PRN PO INSOMNIA Last administered on 22:34; Start 09/13/16 at 18:00; Stop 09/16/16 at 12:18; Status DC Trazodone HCl (Desyrel) 150 mg QHS PO ; Start 09/25/16 at 21:00; Stop 10/25/16 at 20:59 Trazodone HCl (Desyrel) 150 mg QHS PO Last administered on 09/16/16 21:50; Start 09/16/16 at 21:00; Stop 09/17/16 at 11:08; Status DC Valacyclovir HCl (Valtrex) 1,000 mg BID PRN PO cold sores Last administered on 09/19/16 08:46; Start 09/13/16 at 18:00; Stop 09/20/16 at 17:59; Status DC Valacyclovir HCl (Valtrex) 1,000 mg BID PRN PO cold sores; Start 09/22/16 at 18: 00; Stop 09/29/16 at 17:59 Allergies Coded Allergies: Amoxicillin (Unverified Allergy, Unknown, [employer] , 06/28/16) Anabela Crow Sep 26, 2016 13:24
[2016-09-26] MEDS: IBUPROFEN 800 MG TAB PO PRN (15:42)
[2016-09-26 18:00] VITALS: BP 148/79
[2016-09-26] MEDS ORDERED: busPIRone 5 MG TAB PO ONE (21:00)
[2016-09-26] MEDS: traZODone 50 MG TAB PO SCH (21:34)
[2016-09-26 21:35] VITALS: BP 147/82
[2016-09-26] MEDS: PRAZOSIN 1 MG CAP PO SCH (21:35)
[2016-09-27 06:47] VITALS: BP 142/82
[2016-09-27] MEDS: FLUTICASONE PROP 0.05% NASAL SPRAY 16 GM (FLONASE) SCH (08:16)
[2016-09-27] MEDS: busPIRone 5 MG TAB PO SCH (08:17)
[2016-09-27] MEDS: buPROPion 75 MG TAB PO SCH (08:17)
[2016-09-27] MEDS: IBUPROFEN 800 MG TAB PO PRN ×3 (08:31→09:43)
[2016-09-27] MEDS ORDERED: AZITHROMYCIN 250 MG TAB PO SCH (09:00)
--- NOTE | 2016-09-27 10:04 | MHDSPDOC ---
[facility] Discharge Summary Discharge Summary DATE OF ADMISSION: Sep 13, 2016 at 20:15 DATE OF DISCHARGE: September 27, 2016 DISCHARGE DIAGNOSES: Generalized Anxiety disorder Alcohol abuse Intermittent Insomnia r/o PTSD ARTURO A-fib REASON FOR ADMISSION: overdose on Tylenol without intent to commit suicide. Marital stress, borderline PTSD symptoms that are not fully developed. Pt has combat related nightmares. 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 Pt has used alcohol to numb his feelings. Pt denies intrusive thoughts, hypervigilance or hyper-startle. He is "jumpy" when he hears loud noises. Pt has memories that border on being flashbacks. CONSULTANTS INVOLVED:medicine, psychiatry, lab. TREATMENT AND PROGRESS ON THE UNIT : Pt required a medication adjustment immediately after admission. Her reported a migraine since beginning sertraline. This medication interacts with the atrial fib medication he is prescribed so he was changed over to Wellbutrin instead. He reported an immediate stop to his headaches. Pt tolerated Wellbutrin well. He was also prescribed BuSpar as his primary concern was anxiety. He reports work related stress combined with lots of arguments between he and his . They have been arguing for many years. He attempted to get marital help 3 years ago but his , Wero, would not participate so there was no progress. Eliecer states his brings up everything he has done wrong since the time they met, every time they argue. He used to go for a run to calm down but that made her angry so now he just shuts down. Eliecer feels his is upset about his deployments that have been up to 12 months, causing him to miss out on child rearing responsibilities. He virgen snot feel she fully understands the scope of his work when deployed, or if she does, she does not care. She feels alone in raising the children. She is able to work part-time if she likes and is currently working 2 days a week as a nurse at [employer]. Eliecer was encouraged to attend programming on the unit being alert for topics that address healthy communication. Also it was suggested he learn different coping skills to help him relax when feeling overwhelmed. [place] and it was not deemed necessary at that time for him to have additional alcohol treatment. In the mean-time Eliecer obtained a DUI after police ticketed him at his friends house, without observing him driving his motor vehicle. He has a pending court date on this matter. Eliecer and his are currently selling their home on the [place] and have moved into base housing. They have 2 young children 3yo and 13 months old. The children were permitted to visit twice while Eliecer was a patient. His visited more often. HOSPITAL COURSE: A TROY meeting was held mid-way through patients stay. It was apparent at that meeting that his is very angry with Eliecer and wants him to get help. She did not identify the nature of her concerns. She initially refused to allow Eliecer to see the children but later acquiesced. She did not feel she could back up Eliecer's belongings due to their status of moving between the 2 households so Eliecer was allowed an escorted pass to accomplish this. On the unit, Eliecer attended programming daily. He socialized well with peers. He cooperated with unit protocols and regimes. He c/o and earache and was treated by the PA. He made his needs known very well and those were addressed to his apparent satisfaction. SUBSTANCE ABUSE HISTORY: no detox or rehab. Admits that over the years he has wanted to drink but enforced rules for himself such as not drinking on work nights. He would have drinks on the weekend, frequently to intoxication. He reports he has stopped doing that. He attended [facility]EF[facility] recently, and completed and it was deemed he did not have a substance abuse problem and no further treatment was recommended. No family h/o substance abuse. PAST MEDICAL/SURGICAL HISTORY: 1. Obstructive sleep Apnea 2. A-Fib PAST MEDICAL HISTORY: Atrial fibrillation. He is currently in sinus rhythm. He follows with Dr. Dave, expense clerk, and has a loop recorder. He has obstructive sleep apnea on CPAP. He has it here with him and will continue it while inpatient. Migraines. PAST SURGICAL HISTORY: [place] teeth removal in 2008. Adenoidectomy. Appendectomy. Loop recorder implant. REVIEW OF SYSTEMS: 10 systems review was done. The patient had no current complaints. HOME MEDICATIONS: - aspirin 325 mg by mouth daily - flecainide 100 mg by mouth daily as needed for chest pain or palpitations - prazosin 1 mg by mouth at night - Maxalt 5 mg by mouth as needed at the start of a headache - sertraline 50 mg by mouth daily, which is being stopped - trazodone 50 mg by mouth daily - valacyclovir 1 gram by mouth twice a day for cold sores PHYSICAL EXAMINATION: GENERAL: 36-year-old cooperative male in no acute distress. Height 70 inches, weight 100.4 kg, Body Mass Index (BMI) 31.8. VITAL SIGNS: Blood pressure 124/70, pulse 60, respirations 18, temperature 98.4. The patient is alert and oriented times three. HEENT: Pupils are equal and reactive to light. Extraocular muscles intact. Sclerae clear. Conjunctivae normal. No facial asymmetry. Pharynx, gums and tongue pink and moist. Tongue is midline. NECK: Supple without lymphadenopathy, thyromegaly or goiter. Carotids are 2+ without bruit. CHEST: Clear to auscultation without wheeze or retraction. HEART: Regular. ABDOMEN: Benign. Bowel sounds positive. GENITOURINARY/RECTAL: Not done. EXTREMITIES: Equal strength, full range of motion. No clubbing, cyanosis, and edema. Peripheral pulses equal and palpable bilaterally. SKIN: Warm and dry. Labs on admission showed low magnesium level which was corrected in the ED. pt denies seizure disorder, head trauma, liver or kidney disease. He developed A-fib after his last deployment and takes prn medication for this. Pt has MRI scheduled at [facility] on 09/24 which has been approved by his insurance company. If he is still here on that day, we will authorize a pass with escort so he can complete the test. This was not completed during his stay. VITAL SIGNS: Temperature 98.2, pulse 55, respiratory rate 16, blood pressure 142 /65. MENTAL STATUS EXAMINATION: General appearance: Patient is a 36-year old male, who is wearing hospital attire, clean shaven, blonde, medium stature, pleasant. Speech: spontaneous and coherent Thought processes: linear and goal directed. Thought content: appropriate. Abstract reasoning and computation: good. Description of associations: good. Description of abnormal or psychotic thoughts: No SI or HI. no psychotic symptoms illicited. Judgment: limited Insight: fair Orientation: well oriented to situation, person, place and time. Recent and remote memory: grossly intact Attention span and concentration: good Fund of knowledge: full Mood: euthymic Affect: anxious. DISCHARGE ASSESSMENT: It was decided by his TROY that long-term treatment would be of benefit to him for Alcohol and PTSD . Eliecer does not keep alcohol in the home and does not use alcohol on a regular basis. However, when he does embide, he drinks excessively and this is problematic. The acquisition of additional coping skills will be beneficial to Eliecer. He is focused on doing all that he can to improve his marriage and his career. He is devoted to both responsibilities. We increased Eliecer's prazosin to 2 mg which he states is more effective in managing his nightmares/dreams. We discontinued sertraline and started Wellbutrin Buspar is just now beginning to reach a therapeutic level for help control anxiety. PRN vistaril was used regularly by Eliecer during his admission to help manage anxiety. Trazodone was changed several times during the admission. 150 mg caused hangover effect, but 100 mg with Hydroxyzine didn't improve intermediate insomnia. We finally settled on Trazodone 150 mg. His sleep apnea is not well controlled even with CPAP and new tubing/mask. Eliecer also had some sciatic pain on the unit likely from our mattresses. He was given prn Ibuprofen for this. Eliecer did not demonstrate mood instability, mood variation, poor impulse control or grandiosity. Eliecer was never observed to demonstrate psychotic symptoms. He denies hearing voices or seeing visions. No delusions or obsessions or compulsions were expressed. He did endorse anxiety and demonstrated some level of anxiety everyday. He was able to maintain control and was never a behavior managementn problem on the unit. He was respectful, kind and helpful toward others. He remained concerned about the well being of his and children and his [employer]. MEDICATIONS ON DISCHARGE: -BuSpar 15 mg tid -Wellbutrin 75 mg po q a.m. -Trazodone 150 mg po prn insomnia -Vistaril 25 mg po prn anxiety q 6 hrs -Prazosin 2 mg po q hs PLAN/FOLLOWUP ARRANGEMENTS: pt will be escorted from the medical center to the airport by [employer] personnel. He will fly to [place] to attend ongoing care for alcohol and PTSD treatment. He will be returned to [facility] with follow up mental health services provided by staff at the [facility]. Pt agrees to comply with all recommendations by the professional staff. The amount of time spent in the coordination of care for this patient was approximately 25 minutes. Vital Signs/I&Os Vital Signs Date Time Temp Pulse Resp B/P (MAP) Pulse Ox O2 Delivery O2 Flow Rate FiO2 09/27/16 06:47 98.4 96 18 142/82 (102) Medications Scheduled Aspirin (Aspirin EC) 325 Mg Tabec, 325 MG PO DAILY for 30 Days, #30 Scheduled PRN Flecainide Acetate (Flecainide Acetate) 100 Mg Tab, 100 MG PO DAILYPRN PRN for chest pain, #30 Rizatriptan Benzoate (Rizatriptan Benzoate Odt) 5 Mg Tab, 5 MG PO for HEADACHE, (Reported) Valacyclovir HCl (Valacyclovir HCl) 1 Gm Tab, 1 GM PO BID PRN for COLD SORES, ( Reported) Allergies Coded Allergies: Amoxicillin (Unverified Allergy, Unknown, [facility] , 06/28/16) Anabela Crow Sep 27, 2016 10:04
== END 2016-09-27 09:10 | DRG 880 ==
LOC: M PSY 20:15
PROVIDERS: ADMIT Psychiatry & Neurology Psychiatry; ATTEND Psychiatry & Neurology Psychiatry
DX: F41.1 Generalized anxiety disorder (principal); F10.10 Alcohol abuse, uncomplicated; G47.33 Obstructive sleep apnea (adult) (pediatric); I48.91 Unspecified atrial fibrillation; F43.10 Post-traumatic stress disorder, unspecified; G47.00 Insomnia, unspecified; H66.92 Otitis media, unspecified, left ear; I10 Essential (primary) hypertension; G43.909 Migraine, unspecified, not intractable, without status migrainosus; Z63.0 Problems in relationship with spouse or partner; Z91.82 Personal history of military deployment; Z79.82 Long term (current) use of aspirin; Z79.899 Other long term (current) drug therapy; Z88.0 Allergy status to penicillin; M54.40 Lumbago with sciatica, unspecified side

== ENCOUNTER → 2017-07-17 | Outpatient (REF) | LOC: M SMT 13:16 | DX: Z02.71 Encounter for disability determination (principal); M51.37 Other intervertebral disc degeneration, lumbosacral region ==